=== PATIENT | female | born 1975 | race Two or more races ===

== ENCOUNTER → 2024-03-14 11:02 | Outpatient (BNVA) | payer SELFPAY | PROVIDERS: Visit Provider Physician Assistant Medical | DX: Z02.1 Encounter for pre-employment examination (principal) ==

== ENCOUNTER 2024-05-09 17:31 | Emergency (ER) | payer MEDICAID, SELFPAY ==
--- NOTE | ~2024-05-09 | CT_ITS ---
EXAMINATION: CT ABDOMEN AND PELVIS WITH CONTRAST CLINICAL INFORMATION: Bilateral lower quadrant pain COMPARISON: None available. TECHNIQUE: Multidetector volumetric images were obtained from the superior aspect of the liver through the pubic symphysis following administration 85 mL of Omnipaque 350 intravenous contrast. Sagittal and coronal reformatted images were obtained on the technologist's workstation. Oral contrast: Yes This CT examination was performed using dose optimization techniques as appropriate, variously including the following: *Automated exposure control *Adjustment of mA and/or kV according to patient size (this includes techniques or standardized protocols for targeted exams where dose is matched to indication/reason for exam; i.e. extremities or head) *Use of iterative reconstruction technique DLP: 658 mGy-cm FINDINGS: LUNG BASES: The visualized lung bases are clear. There are bilateral breast implants. LIVER, GALLBLADDER, AND BILIARY TREE: The liver is normal in size, shape, and attenuation. No focal hepatic lesion or biliary ductal dilatation is present. The gallbladder is been removed. PANCREAS: Unremarkable. SPLEEN: Unremarkable. ADRENAL GLANDS: Unremarkable. KIDNEYS AND URETERS: The kidneys are normal in size, shape, and attenuation. There is an oval shaped calcification in the peripheral upper pole of the right kidney measuring 7 x 13 mm. There is adjacent cortical thinning. It is uncertain whether this represents an old renal infarct that calcified, dystrophic calcification outside the kidney related to old trauma or infection, stone in a calyceal diverticulum, or calcified cyst. No hydronephrosis. The kidneys are otherwise unremarkable.. BLADDER: Unremarkable. GASTROINTESTINAL TRACT: Postsurgical change from gastric bypass. While diverticulosis. No evidence of diverticulitis. Small and large bowel otherwise unremarkable. Appendix not seen and may have been removed. ABDOMINAL WALL: Postsurgical changes to the anterior abdominal wall. No hernia. LYMPH NODES: Normal. VASCULAR: Unremarkable. PELVIC VISCERA: IUD in the uterus in satisfactory position. Prominent right pelvic vessels questionable for pelvic congestion. OSSEOUS STRUCTURES: Unremarkable. CT/CT abdomen pelvis w IV con IMPRESSION: No acute findings. Postoperative changes from gastric bypass. Mild diverticulosis. No evidence of diverticulitis. 7 x 11 mm benign-appearing calcification in the peripheral upper pole of the right kidney, uncertain etiology as described above. This is not a typical appearing renal stone. No hydronephrosis. IUD in the uterus in satisfactory position. Prominent right pelvic vessels questionable for pelvic congestion. Fleischner guidelines were followed.
--- NOTE | 2024-05-09 17:42 | ED_ITS ---
HPI - General Adult General Chief complaint: Abdominal Pain Stated complaint: vaginal pain, back pain, abd pain, chills, nausea Time Seen by Provider: 05/09/24 22:15 Source: patient Mode of arrival: ambulatory Limitations: no limitations History of Present Illness ED Provider: Dr. Vilma Calvin HPI narrative: Patient comes to the emergency room complaining of very painful vaginal lesions, heavy vaginal discharge, suprapubic pain, tenderness, back pain and dysuria. Patient denies fever chills. Patient states proximally 4 days ago, she had sexual intercourse with her boyfriend and had dyspareunia. Related Data Previous Rx's ?Medication ?Instructions ?Recorded cefuroxime axetil 500 mg tablet 500 mg PO BID #14 tabs 05/10/24 doxycycline hyclate 100 mg tablet 100 mg PO BID #14 tabs 05/10/24 fluconazole 150 mg tablet 150 mg PO ONCE #1 tab 05/10/24 metronidazole 500 mg tablet 500 mg PO BID #14 tabs 05/10/24 Allergies Allergy/AdvReac Type Severity Reaction Status Date / Time hydrocodone [From Vicodin] Allergy Anaphylaxis Verified 05/09/24 17:48 Penicillins Allergy Rash Verified 05/09/24 17:48 Review of Systems 2 Review of Systems: Constitutional : No Weight loss, No Fever, No Chills, No Night Sweats, No Fatigue, No Malaise ENT/Mouth : No Hearing loss, No Ear Pain, No Nasal Congestion, No Sinus Pain, No Hoarseness, No sore throat, No Rhinorrhea, No Swallowing Difficulty Eyes: No Eye Pain, No Swelling, No Redness, No Foreign Body, No Discharge, No Vision Changes Cardiovascular : No Chest Pain, No SOB, No Dyspnea on Exertion, No Orthopnea, No Edema, No Palpitations Respiratory : No Cough, No Sputum, No Wheezing, No Smoke Exposure, No Dyspnea Gastrointestinal : No Nausea, No Vomiting, No Diarrhea, No Constipation, No abdominal Pain, No Hematochezia, No Melena Genitourinary : Complaining of dysuria, painful vaginal lesions, heavy vaginal discharge Musculoskeletal : Complaining of bilateral back pain, No joint pain, No Myalgias, No Joint Swelling Skin : No Skin Lesions, No rash Neuro : No Weakness, No Numbness, No Paresthesias, No Loss of Consciousness, No Dizziness, No Headache Psych : No Anxiety/Panic, No Depression, No SI/HI/AH/VH, No Social Issues, Heme/Lymph: No Bruising, No Bleeding,No Lymphadenopathy Endocrine : No Polyuria, No Polydipsia, No Temperature Intolerance [facility] Social History Social History Advance Directives: No Advance Directives Information Provided: No Physical Exam ED Vital Signs: Vital Signs - 24 hr 05/09/24 17:43 05/09/24 20:28 05/09/24 22:35 Temperature 98.2 F 97.7 F 98.3 F Pulse Rate 75 75 70 Respiratory Rate 16 20 20 Blood Pressure 119/83 122/82 130/88 Pulse Oximetry 95 99 100 Oxygen Delivery Method Room Air Room Air Room Air BMI result Body Mass Index 29.1 Const Other: Appearance: Alert. Oriented X3. No acute distress. Eyes: Pupils equal, round and reactive to light. ENT: Pharynx normal. Neck: Normal inspection. Neck supple. No lymph nodes noted. No crepitus CVS: Normal heart rate and rhythm. Pulses normal. Normal S1 and S2 Respiratory: No respiratory distress. Breath sounds normal. No Wheezing. No rales Abdomen: Soft , tenderness to palpation in suprapubic area, mild left-sided flank pain : Patient has small clusters of ulcerated blisters in the vulva, labia minora and majora. On cervical exam, there is copious thick green vaginal discharge, IUD string present in the cervical os Skin: Skin warm and dry. Normal skin color. Normal skin turgor. Extremities: No lower extremity edema. No Lacerations. No Rash Neuro: Oriented X 3. No motor deficit. No sensory deficit. Moving all extremities. No slurred speech. CN 2 through 12 grossly intact Psych: calm, cooperative, normal affect Course Course Course Narrative: This is a Rapid Medical Examination (RME) performed by Irene Chahal PA-C in triage. Full HPI, ROS, assessment and treatment plan per primary provider in the Main ED. 49 yo female here with multiple concerns. reports shortness of breath x1 week. Sitting 8-9 hours for new job position. Reports nausea, decreased appetite, chills, low back pain, lower abdominal pain, dysuria, dark colored urine, increased urinary frequency, new vaginal lesions, and yellow vaginal discharge x6 days which worsened after unprotected intercourse with long time boyfriend. Reports vaginal discomfort is so severe that it's painful to sit down. no hx of genital herpes. sensitive exam not performed in triage. minimal abdominal tenderness with palpation of lower abdomen. no cvat. Plan: labs, UA, CT/NG ordered Medications Administered Discontinued Medications Generic Name Dose Route Start Last Admin Trade Name Tashi PRN Reason Stop Dose Admin Acetaminophen 975 mg 05/09/24 23:46 05/10/24 00:01 Acetaminophen 325 Mg Tablet PO 05/09/24 23:47 975 mg ONCE ONE Administration Acyclovir 400 mg 05/09/24 23:54 05/10/24 00:16 Acyclovir 200 Mg Capsule PO 05/09/24 23:55 400 mg ONCE ONE Administration Doxycycline Monohydrate 100 mg 05/09/24 23:49 05/10/24 00:01 Doxycycline Monohydrate 100 Mg Capsule PO 05/09/24 23:50 100 mg ONCE ONE Administration Levofloxacin 500 mg in 100 mls @ 100 mls/hr 05/09/24 22:26 05/09/24 23:24 Levaquin IV 05/09/24 23:25 100 mls/hr ONCE ONE Administration Ceftriaxone Sodium 1 gm/ 50 mls @ 100 mls/hr 05/09/24 23:49 05/10/24 00:01 Sodium Chloride IV 05/10/24 00:18 100 mls/hr ONCE ONE Administration Iohexol 85 ml 05/09/24 23:02 05/09/24 23:02 Iohexol 350 Mg/Ml 100 Ml Infus..Btl IV 05/09/24 23:03 85 ml ONCE ONE Administration Ketorolac Tromethamine 60 mg 05/09/24 22:24 05/09/24 22:29 Ketorolac Tromethamine 60 Mg/2 Ml Vial IM 05/09/24 22:25 60 mg ONCE ONE Administration Metronidazole 500 mg 05/09/24 23:49 05/10/24 00:01 Metronidazole 500 Mg Tablet PO 05/09/24 23:50 500 mg ONCE ONE Administration Ondansetron HCl 4 mg 05/09/24 23:46 05/10/24 00:01 Ondansetron Hcl 4 Mg/2 Ml Vial IVPUSH 05/09/24 23:47 4 mg ONCE ONE Administration Medical Decision Making Medical Decision Making MDM Narrative: -I discussed the physical exam with the patient, patient likely has genital herpes. Also, patient may likely have bacterial vaginosis, explained to the patient that bacterial vaginosis is not an STD, however genital herpes is. -my interpretation of labs: Normal hematology and chemistry, patient does have a mild UTI, back pain, therefore treated as pyelonephritis. -patient was treated for UTI/pyelonephritis (Levaquin), bacterial vaginosis, herpes. Patient was empirically treated for gonorrhea/chlamydia. -patient received ceftriaxone, doxycycline, metronidazole and acyclovir -given the patient's level of discomfort in the suprapubic and bilateral lower quadrant area on physical exam, a CT scan was ordered to rule out a tubal ovarian abscess. Patient was given IV Toradol for pain control and Zofran for nausea -my interpretation of CT scan of abdomen pelvis: IUD present in the uterus, there is approximately an 8 mm stone in the right upper kidney pole, no obvious tubo-ovarian abscess, radiology report pending Differential Diagnosis Differential Diagnoses: The differential diagnosis associated with the presentation includes (As above) Lab Data MDM Lab Attestation statement: I reviewed the patient's lab results. 05/09/24 18:03 05/09/24 18:03 Labs: Lab Results 05/09/24 05/09/24 Range/Units 18:03 18:09 WBC 5.1 (4.8-10.8) X10*3/uL RBC 4.37 (4.20-5.50) X10*6/uL Hgb 14.1 (12.0-16.0) g/dl Hct 40.8 (37.0-47.0) % MCV 93.4 (80.0-98.0) fL MCH 32.3 (27.0-33.0) pg MCHC 34.6 (31.0-35.0) g/dl RDW 12.6 (11.0-16.0) % Plt Count 187 (160-400) X10*3/uL MPV 11.0 (9.4-12.3) fL Immature Gran % (Auto) 0.2 (0.0-0.4) % Neut % (Auto) 62.0 (45-73) % Lymph % (Auto) 23.7 (20-40) % [place] % (Auto) 12.5 H (2-11) % Eos % (Auto) 1.4 (0-4) % Baso % (Auto) 0.2 (0-2) % Lymph # (Auto) 1.2 (1.2-4.9) X10*3/uL [place] # (Auto) 0.6 (0.1-1.2) X10*3/uL Eos # (Auto) 0.1 (0.0-0.4) X10*3/uL Baso # (Auto) 0.0 (0.0-0.2) X10*3/uL Abs Immat Gran (auto) 0.01 (0.00-0.03) X10*3/uL Absolute Neuts (auto) 3.2 (2.0-8.3) x10*3/uL Absolute Nucleated RBC 0.000 (0.0-0.012) X10*3/uL Nucleated RBC % (auto) 0.0 (0.0-0.2) /100WBC Sodium 138 (135-145) mmol/L Potassium 3.9 (3.3-5.1) mmol/L Chloride 105 (96-108) mmol/L Carbon Dioxide 23 (22-29) mmol/L Anion Gap 14 (12-20) BUN 13 (9-16) mg/dL Creatinine 0.71 (0.5-1.4) mg/dL Estim Creat Clear Calc 87.1 Estimated GFR > 60 Random Glucose 74 (60-115) mg/dL Calcium 9.3 (8.4-10.2) mg/dL Magnesium 2.1 (1.6-2.6) mg/dL Total Bilirubin 0.3 (0.0-1.0) mg/dL AST 32 H (5-31) U/L ALT 21 (0-31) U/L Alkaline Phosphatase 84 (39-117) U/L Total Protein 7.6 (6.5-8.0) g/dL Albumin 4.3 (3.5-5.0) g/dL Lipase 27 (8-78) U/L Urine Color Dark Yellow Urine Appearance Clear Urine pH 6.0 (5.0-9.0) Ur Specific [place] 1.020 (1.005-1.025) Urine Protein Negative (Neg-Trace) mg/dL Urine Glucose (UA) Negative (Negative) mg/dL Urine Ketones Trace (Negative) mg/dL Urine Blood Negative (Negative) Urine Nitrite Negative (Negative) Ur Leukocyte Esterase Small (1+) H (Negative) Urine RBC 0-2 (0-2) /HPF Urine WBC 6-10 H (0-5) /HPF Ur Squamous Epith Cells 0-2 (0-2) /HPF Urine Bacteria None Seen (None Seen) Hyaline Casts 0-2 (0-2) /LPF Chlam trachomat DNA PCR Cancelled Influenza Type A (PCR) NEGATIVE (Negative) Influenza Type B (PCR) NEGATIVE (Negative) N.gonorrhoeae DNA (PCR) Cancelled RSV RNA Qual (PCR) NEGATIVE (Negative) SARS-CoV-2 RNA (RT-PCR) NEGATIVE (Negative) Independent Interpretation I performed an independent interpretation of an: CT Scan Radiology Impression Discussion of test interpretation with radiology: I have reviewed the radiologist's reading. Radiologist Impression: FINDINGS: LUNG BASES: The visualized lung bases are clear. There are bilateral breast implants. LIVER, GALLBLADDER, AND BILIARY TREE: The liver is normal in size, shape, and attenuation. No focal hepatic lesion or biliary ductal dilatation is present. The gallbladder is been removed. PANCREAS: Unremarkable. SPLEEN: Unremarkable. ADRENAL GLANDS: Unremarkable. KIDNEYS AND URETERS: The kidneys are normal in size, shape, and attenuation. There is an oval shaped calcification in the peripheral upper pole of the right kidney measuring 7 x 13 mm. There is adjacent cortical thinning. It is uncertain whether this represents an old renal infarct that calcified, dystrophic calcification outside the kidney related to old trauma or infection, stone in a calyceal diverticulum, or calcified cyst. No hydronephrosis. The kidneys are otherwise unremarkable.. BLADDER: Unremarkable. GASTROINTESTINAL TRACT: Postsurgical change from gastric bypass. While diverticulosis. No evidence of diverticulitis. Small and large bowel otherwise unremarkable. Appendix not seen and may have been removed. ABDOMINAL WALL: Postsurgical changes to the anterior abdominal wall. No hernia. LYMPH NODES: Normal. VASCULAR: Unremarkable. PELVIC VISCERA: IUD in the uterus in satisfactory position. Prominent right pelvic vessels questionable for pelvic congestion. OSSEOUS STRUCTURES: Unremarkable. CT/CT abdomen pelvis w IV con IMPRESSION: No acute findings. Postoperative changes from gastric bypass. Mild diverticulosis. No evidence of diverticulitis. 7 x 11 mm benign-appearing calcification in the peripheral upper pole of the right kidney, uncertain etiology as described above. This is not a typical appearing renal stone. No hydronephrosis. IUD in the uterus in satisfactory position. Prominent right pelvic vessels questionable for pelvic congestion. Fleischner guidelines were followed. Critical Care Time Critical Care Time Critical Care Time: Yes Total Critical Care Time: 60 Attestation: I have personally provided critical care time. Time includes review of lab data, radiology results, discussion with consultants, and monitoring for potential decompensation. Intervention performed as documented. Discharge Plan Discharge Clinical Impression: Herpes, Bacterial vaginosis Patient Disposition: Home, Self-Care Instructions: Bacterial Vaginosis (ED), Genital Herpes Simplex (ED) Additional Instructions: Please follow-up with your primary care physician tomorrow. If you have any worsening or new symptoms, please return to the emergency room or call 911 Prescriptions: New metronidazole 500 mg tablet 500 mg PO BID Qty: 14 0RF cefuroxime axetil 500 mg tablet 500 mg PO BID Qty: 14 0RF doxycycline hyclate 100 mg tablet 100 mg PO BID Qty: 14 0RF fluconazole 150 mg tablet 150 mg PO ONCE Qty: 1 0RF Print Language: Thai
[2024-05-09 17:43] VITALS: BP 119/83; PULSE 75; RESP 16; TEMP 36.8; O2SAT 95; BMI 29.1
[2024-05-09 18:08] LABS: MANUAL DIFF FLAG NO
[2024-05-09 18:24] LABS: Alanine Aminotransferase 21 U/L (0-31); Albumin Level 4.3 g/dL (3.5-5.0); Alkaline Phosphatase 84 U/L (39-117); Anion Gap 14 (12-20); Aspartate Amino Transferase 32 U/L (5-31); Bilirubin Total 0.3 mg/dL (0.0-1.0); Blood Urea Nitrogen 13 mg/dL (9-16); Calcium 9.3 mg/dL (8.4-10.2); Carbon Dioxide 23 mmol/L (22-29); Chloride 105 mmol/L (96-108); Creatinine Clr Calc Pharmacy 87.1; Estimated Glomerular Filt Rate > 60; Glucose Random 74 mg/dL (60-115); Lipase 27 U/L (8-78); Magnesium 2.1 mg/dL (1.6-2.6); Potassium 3.9 mmol/L (3.3-5.1); Sodium 138 mmol/L (135-145); Total Protein 7.6 g/dL (6.5-8.0)
[2024-05-09 18:36] LABS: Basophils Percent Auto 0.2 % (0-2); Eosinophils Absolute Auto 0.1 X10*3/uL (0.0-0.4); Eosinophils Percent Auto 1.4 % (0-4); Hematocrit 40.8 % (37.0-47.0); Hemoglobin 14.1 g/dl (12.0-16.0); Imm Gran Abs Auto 0.01 X10*3/uL (0.00-0.03); Imm Gran Pct Auto 0.2 % (0.0-0.4); Lymphocytes Absolute Auto 1.2 X10*3/uL (1.2-4.9); Lymphocytes Percent Auto 23.7 % (20-40); Mean Corpuscular HGB Conc 34.6 g/dl (31.0-35.0); Mean Corpuscular Hemoglobin 32.3 pg (27.0-33.0); Mean Corpuscular Volume 93.4 fL (80.0-98.0); Monocytes Absolute Auto 0.6 X10*3/uL (0.1-1.2); Monocytes Percent Auto 12.5 % (2-11); Neutrophils Absolute Auto 3.2 x10*3/uL (2.0-8.3); Platelet Count 187 X10*3/uL (160-400); Red Blood Count 4.37 X10*6/uL (4.20-5.50); Red Cell Distribution Width 12.6 % (11.0-16.0); White Blood Count 5.1 X10*3/uL (4.8-10.8)
[2024-05-09 18:39] LABS: Appearance Urine Clear; Color Urine Dark Yellow; Glucose Urine UA Negative (Negative); Leukocyte Esterase Urine Small (1+) (Negative); Nitrite Urine Negative (Negative); UMIC TRIGGER UACC YES; Urine Blood Negative (Negative); Urine Ketones Trace mg/dL (Negative); Urine Protein Negative (Neg-Trace)
[2024-05-09 18:51] LABS: Influenza A PCR NEGATIVE (Negative); Influenza B PCR NEGATIVE (Negative); Resp Syncy Virus RNA Qual PCR NEGATIVE (Negative); SARS COV2 PCR INHOUSE NEGATIVE (Negative)
[2024-05-09 18:53] LABS: Bacteria Urine None Seen (None Seen); Hyaline Casts Urine 0-2 /LPF (0-2); RBC Urine 0-2 /HPF (0-2); Squamous Epithelial Cell Urine 0-2 /HPF (0-2); UACC Culture Trigger YES
[2024-05-09 20:28] VITALS: BP 122/82; PULSE 75; RESP 20; TEMP 36.5; O2SAT 99
[2024-05-09] MEDS: Ketorolac Tromethamine 60 MG/2 ML VIAL IM (22:29)
[2024-05-09 22:35] VITALS: BP 130/88; PULSE 70; RESP 20; TEMP 36.8; O2SAT 100
[2024-05-09] MEDS: iohexoL 350 MG/ML 100 ML INFUS..BTL 85 ML IV (23:02)
[2024-05-09] MEDS: levoFLOXacin/D5W 500 MG/100 ML PIGGYBACK 100 MG IV (23:24)
[2024-05-10] MEDS: Doxycycline Monohydrate 100 MG CAPSULE PO (00:01)
[2024-05-10] MEDS: ondansetron HCL 4 MG/2 ML VIAL IVPUSH (00:01)
[2024-05-10] MEDS: Acetaminophen 325 MG TABLET 975 MG PO (00:01)
[2024-05-10] MEDS: cefTRIAXone sodium 1 GM in 0.9 % Sodium Chloride 50 ML IV (00:01)
[2024-05-10] MEDS: metroNIDAZOLE 500 MG TABLET PO (00:01)
[2024-05-10] MEDS: Acyclovir 200 MG CAPSULE 400 MG PO (00:16)
[2024-05-10 06:07] LABS: CT PCR NOT DETECTED (Not Detect.); NG PCR NOT DETECTED (Not Detect.)
[2024-05-10 10:48] LABS: Bacterial Vaginosis PCR NEGATIVE (Negative); Candida Group PCR NOT DETECTED (Not Detect); Candida glab krusei PCR NOT DETECTED (Not Detect); Trichomonas vaginalis PCR NOT DETECTED (Not Detect)
== END 2024-05-10 02:27 | disposition home or self-care (01) ==
PROVIDERS: Physician Assistant Medical; Emergency Provider Emergency Medicine
DX: B00.9 Herpesviral infection, unspecified (principal); N76.0 Acute vaginitis; R30.0 Dysuria; N94.89 Other specified conditions associated with female genital organs and menstrual cycle; N94.10 Unspecified dyspareunia; M54.50 Low back pain, unspecified; Z03.818 Encounter for observation for suspected exposure to other biological agents ruled out
CPT/HCPCS: 0241U; 0352U; 74177; 80053; 81001; 83690; 83735; 85025; 87086; 87491; 87591; 96372; 96374; 96375; 99284; J0696; J1885; J1956; J2405; Q9967

== ENCOUNTER 2024-08-02 16:11 | Outpatient (AMB) | payer OTHER, SELFPAY ==
[2024-08-02 16:12] VITALS: BP 110/80; PULSE 88; O2SAT 94; BMI 27.8
--- NOTE | 2024-08-02 16:12 | MHC.OFFWIV ---
Intake Vital Signs 08/02/24 16:12 Height 5 ft 2 in Weight 152 lb BMI 27.8 BP 110/80 Blood Pressure Location Rt brachial Position Sitting Pulse 88 Pulse Source Pulse Oximeter Pulse Oximetry (%) 94 Oxygen Delivery Method Room Air Intake Visit Reasons: EP-abd pain, b/l legs crams, sob, insomnia Allergies hydrocodone [From Vicodin] Allergy (Verified 08/02/24 16:14) Anaphylaxis Penicillins Allergy (Verified 08/02/24 16:14) Rash Do you need a note to return to daycare/school/sports/work: No HPI HPI Comments History of Present Illness Details Patient is a 49-year-old female complaining not sleeping, anxiety, waking up and having a panic attack, feeling short of breath and or palpitations. She explained she just had a family member who was murdered on July 10 and when she was found out she passed out and was taken to [facility] in [place]. After a evaluation, they recommended she follow up with behavioral health however her insurance did not cover the place in [place] and she has been working with her primary car doctor at [facility] to try to secure a therapist or somebody and behavior Health to evaluate her for therapy or medication or both. She states that she has not have any plans to hurt herself or anyone else. She has been given lorazepam 0.5 mg to use for anxiety which she has been using she has the prescription here with her today and has a few pills left from July 10 when she was prescribed 12 of them. She has also been taking 50 mg of trazodone before bed to try to sleep but it has not been working, she does have plenty of them left in the bottle. She was also given melatonin which she has been using but is almost out. She states she is not eating she is not sleeping she has lost 10 lb in the past 3 weeks. Review of Systems Const All systems reviewed & are unremarkable except as noted in HPI and below Physical Exam Vital Signs: Last Vital Signs Pulse 88 08/02/24 16:12 BP 110/80 08/02/24 16:12 Pulse Ox 94 08/02/24 16:12 Oxygen Delivery Method Room Air 08/02/24 16:12 BMI result Body Mass Index 27.8 Const General: cooperative, comfortable, well developed, anxious and tired appearing Orientation/consciousness: patient oriented x3 Limitations: no limitations HEENT Head: Yes normal to inspection Ears: hearing grossly normal bilaterally General nose exam: Normal external nose present Face and sinus: Yes normal facial exam Eyes General: appearance normal, both eyes and all related structures Neck Neck: Yes normal visual inspection and Yes full ROM Resp Effort & Inspection: normal respiratory effort and able to speak in complete sentences Skin General skin exam: no rashes or lesions noted Neuro General: patient oriented x3 Extrem General: Yes normal to inspection Assessment & Plan Assessment & Plan (1) Situational anxiety: Code(s): 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 I did refill some of the medications and added hydroxyzine to be used as needed for anxiety. (2) Panic attacks: Code(s): F41.0 - Panic disorder [episodic paroxysmal anxiety] Plan: See above Plan See above Medications: New melatonin 5 mg PO .QHS 30 caps 0RF 30 days hydroxyzine HCl 25 mg PO TID PRN 20 tabs 0RF anxiety lorazepam 0.5 mg PO BID PRN 14 tabs 0RF anxiety Discontinued doxycycline hyclate Discontinued Reason: Patient Completed Course 100 mg PO BID 14 tabs 0RF acyclovir space evenly during waking hours Discontinued Reason: Stopped on Transfer 800 mg PO 5XD 7 days 35 tabs 0RF cefuroxime axetil Discontinued Reason: Patient no longer taking 500 mg PO BID 14 tabs 0RF fluconazole Discontinued Reason: Patient Completed Course 150 mg PO ONCE 1 tab 0RF metronidazole Discontinued Reason: Patient Completed Course 500 mg PO BID 14 tabs 0RF Coding Level of Care Code New Pt Level 4 (35928) Diagnoses Situational anxiety F41.8 Panic attacks F41.0
== END 2024-08-02 16:53 | disposition home or self-care (01) ==
LOC: HO.HMCWIC 16:11
DX: F41.8 Other specified anxiety disorders (principal); F41.0 Panic disorder [episodic paroxysmal anxiety]

== ENCOUNTER → 2024-08-02 16:11 | Outpatient (BNVA) | payer OTHER, SELFPAY | DX: F41.8 Other specified anxiety disorders (principal); F41.0 Panic disorder [episodic paroxysmal anxiety] | CPT/HCPCS: 99202 ==

== ENCOUNTER 2024-12-18 13:49 | Outpatient (AMB) | payer OTHER, SELFPAY ==
--- OUTSIDE RECORDS SUMMARY | 2024-12-18 13:57 | XMS_ITS | Clinical Summary ---
Author Organization [facility] [place] [address] Care Team Providers Care Kennel Assistant Name Role Phone Unavailable Primary Care Provider Unavailabl e Social History Tobacco Use Types Packs/Day Years Used Date Smoking Tobacco: Never Assessed Sex and Gender Information Value Date Recorded Sex Assigned at Not on file Gender Identity Not on file Sexual Orientation Not on file Obstetrics History Plan of Treatment Health Maintenance Due Date Last Done Comments Breast Cancer Screening 1973 DTaP,Tdap,and Td Vaccines (1 - Tdap) 1992 Hepatitis B Vaccines (1 of 3 - 19+ 3-dose series) 1992 Cervical Cancer Screening: P ap Smear 1994 Zoster Vaccines (1 of 2) 2023 COVID-19 Vaccine (2023-2 5 season) 2024 Influenza Vaccine (#1) 2024 Colorectal Cancer Screening: Colonoscopy 09/09/2024 Depression Screening 09/09/2024 HIV Screening 09/09/2024 Hepatitis C Screening 09/09/2024 Social Influencers of Health Screening 09/09/2024 HIB Vaccines Aged Out No longer eligi ble based on patient's age to complete this topic HPV Vaccines Aged Out No longer eligi ble based on patient's age to complete this topic Hepatitis A Vaccines Aged Out No long er eligible based on patient's age to complete this topic IPV Vaccines Aged Out No longer eligi ble based on patient's age to complete this topic MMR Vaccines Aged Out No longer eligi ble based on patient's age to complete this topic Meningococcal ACWY Vaccine Aged Out N o longer eligible based on patient's age to complete this topic Pneumococcal Vaccine: Pediat rics (0 to 5 Years) and At-Risk Patients (6 to 64 Years) Aged Out No longer eligible b ased on patient's age to complete this topic RSV Immunization Patients Un siva 20 months Aged Out No longer eligible b ased on patient's age to complete this topic Varicella Vaccines Aged Out No longer eligible based on patient's age to complete this topic
--- OUTSIDE RECORDS SUMMARY | 2024-12-18 13:57 | XMS_ITS | Clinical Summary ---
Author Organization [facility] Address [address] [place] [address] Care Team Providers Care Corrections Unit Supervisor Name Role Phone Unavailable Primary Care Provider Unavailabl e Allergies Active Allergy Reactions Criticality Noted Date Comments Hydrocodone-Acetaminophen Swelling,Rash Low 024 Penicillins Rash Low 07/09/2024 Per states she gets rash from Medication Medications Medication Sig Dispensed Refills Start Date End Date Status ondansetron (ZOFRAN) 8 MG tablet Take 0.5 tablets (4 mg total) by mouth every 8 (eight) hours as needed for nausea. 20 tablet 0 07/10/2024 Active LORazepam (ATIVAN) 0.5 MG tablet Take 1 tablet (0.5 mg total) by mouth every 6 (six) hours as needed. 12 tablet 0 07/10/2024 Active melatonin 3 MG TABS tablet Take 1 tablet (3 mg total) by mouth every night at bedtime. 30 tablet 0 07/10/2024 Active mirtazapine (Remeron) 15 MG tablet Take 0.5 tablets (7.5 mg total) by mouth every night at bedtime. 30 tablet 0 07/10/2024 Active famotidine (PEPCID) 20 MG tablet Take 1 tablet (20 mg total) by mouth 2 (two) times a day. 30 tablet 0 07/10/2024 Active Social History Tobacco Use Types Packs/Day Years Used Date Smoking Tobacco: Never Assessed Sex and Gender Information Value Date Recorded Sex Assigned at Female 07/09/2024 4:44 PM EDT Gender Identity Not on file Sexual Orientation Not on file Job Start Date Occupation Industry Not on file Not on file Not on file Last Filed Vital Signs Vital Sign Reading Time Taken Comments Blood Pressure 124/86 07/09/2024 6:33 PM EDT Pulse 84 07/09/2024 6:33 PM EDT Temperature 36.9 ??C (98.4 ??F) 07/09/2024 6:33 PM ED T Respiratory Rate 18 07/09/2024 6:33 PM EDT Oxygen Saturation 100% 07/09/2024 6:33 PM EDT Inhaled Oxygen Concentration - - Weight - - Height - - Body Mass Index - - Plan of Treatment Health Maintenance Due Date Last Done Comments Hepatitis B Vaccines (1 of 3 - 3-dose series) 1973 Hepatitis C Screening 1973 COVID-19 Vaccine (#1) 1973 Depression Screening 1985 Preventative Health Evaluation 1991 DTap / Tdap / Td (1 - Tdap) 1992 Cervical Cancer Screening (P ap Smear) 1994 Colon Cancer Screening (Colonoscopy) 2018 Breast Cancer Screening (Mammogram) 2023 Shingrix-Zoster Vaccine (1 of 2) 2023 Influenza Vaccine (#1) 2024 Pneumococcal Vaccine Aged Out No long er eligible based on patient's age to complete this topic RSV Ped < 20 months Aged Out No longe r eligible based on patient's age to complete this topic
[2024-12-18 14:51] VITALS: BP 128/82; PULSE 97; RESP 20; TEMP 36.7; O2SAT 97; BMI 27.8
--- NOTE | 2024-12-18 14:51 | AM.OFFWIN_ITS ---
Intake Vital Signs 12/18/24 14:51 Height 5 ft 2 in Weight 152 lb BMI 27.8 BP 128/82 Blood Pressure Location Lt brachial Position Sitting Respiration 20 Pulse 97 Pulse Source Pulse Oximeter Temp 98.0 F Temp Source Oral Pulse Oximetry (%) 97 Oxygen Delivery Method Room Air Intake Visit Reasons: EP severe back, joint pain, migraines Intake Note: Pt is here today for a walk in visit. Pt c/o lower back pain and abdominal pain cough and wheezing, cant eat. Pt states that she gets sharp pain near her R side ribcage Allergies hydrocodone [From Vicodin] Allergy (Verified 12/18/24 14:55) Anaphylaxis Penicillins Allergy (Verified 12/18/24 14:55) Rash Do you need a note to return to daycare/school/sports/work: Yes HPI HPI Comments History of Present Illness Details This is a 49-year-old female with a past medical history of cholecystectomy, appendectomy, asthma and gastric bypass surgery presenting for evaluation of low back pain and right-sided abdominal pain. 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 Patient denies any overt injury or trauma preceding the onset of her symptoms. Patient states that she pushes heavy stretchers and has to handle overweight patients. On Tuesday the patient noted pain in her low back after work. Patient has been taking Tylenol [id number] without relief of her discomfort. Patient states the pain does not radiate. This morning the patient developed pain on the right side of her abdomen under the right anterior ribs. Again, patient denies any injury or trauma contributing to this discomfort. She has not taken any additional medicine for treatment of her pain however does feel nauseous. She denies any fevers, chills, vomiting or dysuria. Review of Systems Const All systems reviewed & are unremarkable except as noted in HPI and below Denies chills, Denies fever(s) and Denies headache(s) Eyes Reports no additional complaints ENT Reports no additional complaints and Denies headache(s) Card Reports no additional complaints Resp Reports no additional complaints GI Details: RUQ pain Reports no additional complaints Reports no additional complaints Musc Reports back pain, Denies joint swelling, Denies numbness and Denies tingling Skin/Breast Reports system reviewed and no additional complaints, except as documented Neuro Reports no additional complaints, Denies headache(s), Denies numbness and Denies tingling Psych Reports no additional complaints Endo Reports no additional complaints Skip/Lymph Reports no additional complaints Aller/Immun Reports no additional complaints Physical Exam Vital Signs: Last Vital Signs Temp 98.0 F 12/18/24 14:51 Pulse 97 12/18/24 14:51 Resp 20 12/18/24 14:51 BP 128/82 12/18/24 14:51 Pulse Ox 97 12/18/24 14:51 Oxygen Delivery Method Room Air 12/18/24 14:51 BMI result Body Mass Index 27.8 Const General: cooperative, healthy appearing, well developed, alert, awake and Physically active; No comfortable Nutritional Appearance: average body habitus Orientation/consciousness: patient oriented x3 Limitations: no limitations Resp Effort & Inspection: normal respiratory effort and able to speak in complete sentences Auscultation: wheezes lower bilaterally Cardio Rate: regular rate Rhythm: regular rhythm GI Inspection: Yes normal to inspection and No abdominal wall ecchymosis Palpation (GI): Soft to palpation and Tenderness to palpation present (GI) in the epigastrum and in the RUQ Auscultation: normal bowel sounds General: Yes bladder normal to palpation and Yes no CVA tenderness Bimanual exam- vagina & uterus: bladder normal to palpation Back/Spine/Pelvis Back: no CVA tenderness Thoracic/Lumbar Spine: paraspinal muscle tenderness on the left in the mid lumbar and on the right in the lower lumbar, No thoracic spinal tenderness, No lumbar spinal tenderness and No straight leg raise positive Sacroiliac joints: bilaterally nontender Skin General skin exam: no rashes or lesions noted Neuro General: patient oriented x3 Psych Appearance: grossly normal Mental Status: mental status grossly normal Insight: Good insight present (Psych) Judgement: Good judgement present (Psych) Assessment & Plan Assessment & Plan (1) Lumbar pain: Comment: No red flag symptoms identified with lumbar pain. Patient will be discharged home with anti-inflammatory and muscle relaxant. Code(s): M54.50 - Low back pain, unspecified Plan: Prednisone 40 mg x 5 days and methocarbamol q.i.d. x5 days. (2) RUQ pain: Comment: Patient's past medical history includes cholecystectomy and appendectomy and patient presents with a nonsurgical abdomen. Patient will be discharged with Zofran for her nausea. Code(s): R10.11 - Right upper quadrant pain Plan: Zofran q.8 hours p.r.n. nausea, increase clear fluids daily. Patient will present to the emergency department for any worsening abdominal pain. Medications: New prednisone 40 mg (2 x 20 mg) PO DAILY 10 tabs 0RF ondansetron 4 mg PO Q8H 10 tabs 0RF albuterol sulfate 90 mcg/actuation 2 puffs inhalation Q6H PRN 8.5 grams 0RF shortness of breath or wheezing methocarbamol 750 mg PO Q8H 20 tabs 0RF Coding Level of Care Code New Pt Level 4 (32699) Diagnoses Lumbar pain M54.50 RUQ pain R10.11 Time Spent (min) 30
== END 2024-12-18 15:24 | disposition home or self-care (01) ==
PROVIDERS: Visit Provider Physician Assistant
DX: M54.50 Low back pain, unspecified (principal); R10.11 Right upper quadrant pain

== ENCOUNTER → 2024-12-21 14:04 | Outpatient (BNVA) | payer OTHER, SELFPAY | PROVIDERS: Visit Provider Physician Assistant Medical | DX: Z13.89 Encounter for screening for other disorder (principal) | CPT/HCPCS: 99203 ==

== ENCOUNTER 2024-12-31 14:40 | Inpatient (IN) | payer OTHER, SELFPAY ==
--- NOTE | ~2024-12-31 | XR_ITS ---
EXAMINATION: XR CHEST CLINICAL INFORMATION: Sob/cough COMPARISON: 12/31/2024. TECHNIQUE: Frontal view of the chest was obtained. FINDINGS: The cardiac, hilar, and mediastinal contours are normal. There is a patchy left basilar opacity extending into the retrocardiac region. Lungs otherwise clear. No pneumothorax or effusion. No focal osseous or soft tissue abnormality. XR/XR chest 1V IMPRESSION: Patchy increased opacity left base suggestive of subtle left base pneumonia. Electronically signed by: Griffin Leahy MD 01/03/2025 09:42 AM EST
--- NOTE | ~2024-12-31 | XR_ITS ---
CLINICAL HISTORY: CP 2 view chest x-ray Comparison: None Findings: The lungs are clear. Normal size heart. No acute fracture. IMPRESSION: 1. No acute findings. This document has been electronically signed by: Carleen Alvarado MD on 12/31/2024 15:14:10
--- NOTE | ~2024-12-31 | CT_ITS ---
CLINICAL HISTORY: Pain, rule out obstruction CT abdomen and pelvis with contrast Comparison: CT/DE - CT ABDOMEN PELVIS W IV CON - 05/09/24 22:51 EDT Findings: There are bilateral breast implants. There is a bandlike focus of atelectasis within the left lower lobe. Mild ground-glass opacities within the right lower lobe also most likely secondary to atelectasis. Large parenchymal calcification within the right kidney without change. Remaining abdominal organs unremarkable. Prior cholecystectomy. Prior gastric bypass with an unremarkable postoperative appearance. Colonic diverticulosis without diverticulitis. No bowel edema or obstruction. Intrauterine device within the endometrial canal. Pelvic contents otherwise unremarkable. Prior appendectomy. The bones are intact. IMPRESSION: 1. There may be a mild degree of ileus. There is no current evidence of small-bowel obstruction. 2. Colonic diverticulosis without diverticulitis. This document has been electronically signed by: Carleen Alvarado MD on 12/31/2024 18:16:06
--- NOTE | ~2024-12-31 | FL_ITS ---
EXAMINATION: FL SMALL BOWEL FOLLOW THROUGH CLINICAL INFORMATION: Abdominal pain COMPARISON: CT Abdomen/Pelvis 12/31/24, KUB 01/01/25 TECHNIQUE: Small bowel series performed using standard overhead radiographic techniques at specified intervals after ingestion of contrast, until contrast was seen in the right colon. Fluoroscopic spot radiographs were then obtained of the terminal ileum and any abnormal findings in the small bowel. FINDINGS: Bulb Planter image of the abdomen demonstrates a normal/nonspecific bowel gas pattern. Surgical clips are present in the right upper quadrant. Surgical anastomotic sutures are present in the left upper quadrant . An intrauterine device is present. Sequential imaging of the jejunum and ileum have a normal fold pattern. The left sided jejunal loops are minimally dilated, however, no strictures or masses are present. Spot imaging of the terminal ileum demonstrates no abnormality. Significant dilution of contrast was noted through progression. Contrast was seen in the right colon after 30 minutes. FLUOROSCOPY TIME: 0.5 min DOSE AREA PRODUCT: 683 uGy-m2 (microgray-meter squared) FL/FL small bowel follow through IMPRESSION: 1. Minimally dilated left sided small bowel loops, however, no strictures or masses are present. 2. Contrast is seen in colon after 30 minutes. There was significant dilution of contrast, nonspecific. No small bowel obstruction is present. 3. Status post cholecystectomy and gastric bypass. This procedure was performed by Navarro Martin PA-C, and supervised by Dr. Leahy Electronically signed by: Griffin Leahy MD 01/02/2025 03:24 PM [facility]
--- NOTE | ~2024-12-31 | XR_ITS ---
EXAMINATION: XR ABDOMEN KUB CLINICAL INDICATION: abd pain COMPARISON: KUB and CT abdomen and pelvis 12/31/2024. TECHNIQUE: AP view of the abdomen. FINDINGS: Bowel gas pattern is normal/nonspecific. There is no focally dilated loop identified. No organomegaly or abnormal soft tissue calcifications. Surgical clips and anastomotic sutures in the left upper quadrant. Cholecystectomy clips present. Surgical clips right lateral to the right iliac crest. IUD in the central pelvis. No acute bony abnormality. Lung bases appear clear. XR/XR KUB IMPRESSION: 1. No acute findings or evidence of bowel obstruction. 2. Stable postoperative changes. Electronically signed by: Griffin Leahy MD 01/01/2025 08:49 AM EST
--- NOTE | ~2024-12-31 | XR_ITS ---
CLINICAL HISTORY: constipation h o ZAFAR 1 view abdomen Comparison: CT/KS - CT ABDOMEN PELVIS W IV CON - 05/09/24 22:51 EDT Findings: No pneumoperitoneum or pneumatosis. No abnormal calcifications. No acute fractures. There are surgical clips within the bilateral upper quadrants. There is an intrauterine device within the pelvis. IMPRESSION: [id number] fecal retention within the colon. This document has been electronically signed by: Carleen Alvarado MD on 12/31/2024 15:15:49
--- NOTE | 2024-12-31 14:43 | ED_ITS ---
HPI - URI/Sore Throat General Chief Complaint: General Medical Stated Complaint: Cough Diff Breathing Time Seen by Provider: 12/31/24 15:28 History of Present Illness HPI Narrative: Patient with several complaints, chief complaint is abdominal pain nausea and vomiting associated with constipation, not passing gas for the past 3 days, pain is getting worse Patient has a history of gastric bypass, multiple small-bowel obstructions, appendicitis and cholecystectomy Second complaint is she has had a bad cough and chest pain with the cough, feels heart racing, and wheezing similar to prior asthma attacks Abdominal pain is the main complaint in his to scribed as 06/23, it is mostly upper abdomen both sides, last bowel movement was 3 days ago The coughing started 2 days ago it started a day after the abdominal pain started Related Data Home Medications ?Medication ?Instructions ?Recorded ?Confirmed lorazepam 0.5 mg tablet 0.5 mg PO QID PRN 08/02/24 melatonin 3 mg tablet 3 mg PO BEDTIME 08/02/24 mirtazapine 15 mg tablet 15 mg PO BEDTIME 08/02/24 ondansetron HCl 8 mg tablet mg PO 08/02/24 trazodone 50 mg tablet 50 mg PO BEDTIME 08/02/24 Previous Rx's ?Medication ?Instructions ?Recorded hydroxyzine HCl 25 mg tablet 25 mg PO TID PRN anxiety #20 tabs 08/02/24 lorazepam 0.5 mg tablet 0.5 mg PO BID PRN anxiety #14 tabs 08/02/24 melatonin 5 mg capsule 5 mg PO .QHS 30 days #30 caps 08/02/24 albuterol sulfate 90 mcg/actuation 2 puff inhalation Q6H PRN 12/18/24 aerosol inhaler shortness of breath or wheezing #8.5 grams methocarbamol 750 mg tablet 750 mg PO Q8H #20 tabs 12/18/24 ondansetron 4 mg disintegrating 4 mg PO Q8H #10 tabs 12/18/24 tablet prednisone 20 mg tablet 40 mg (2 x 20 mg) PO DAILY #10 tabs 12/18/24 Allergies Allergy/AdvReac Type Severity Reaction Status Date / Time hydrocodone [From Vicodin] Allergy Anaphylaxis Verified 12/31/24 14:48 Penicillins Allergy Rash Verified 12/31/24 14:48 [facility] Past Medical History Source: nursing notes reviewed Social History Social History Smoked in Last 30 Days: No Use of substances other than those prescribed or required for medical reasons: No Advance Directives: No Advance Directives Information Provided: Yes Physical Exam 2 Vital Signs: Vital Signs: Last Vital Signs Temp 99.7 F 12/31/24 14:46 Pulse 110 H 12/31/24 14:46 Resp 18 12/31/24 14:46 BP 149/92 H 12/31/24 14:46 Pulse Ox 99 12/31/24 14:46 O2 Del Method Room Air 12/31/24 14:46 BMI result Body Mass Index 26.2 General appearance is very uncomfortable coughing frequently The eyes anicteric no pallor Pharynx is clear with no redness swelling or exudate, voice is normal, membranes are moist Neck is supple The chest had bilateral wheezing with good air entry Heart no murmur auscultated The abdomen had diffuse upper abdominal tenderness without rebound or guarding Extremities full range motion x4 Skin no rash seen Course Course Course Narrative: This is an RME: Additional HPI, ROS, PE not included below will be deferred to primary provider. RME assessment and note performed by: Tawnya Azul PA-C This is a [id number]-female, with a hx of 4 bowel obstructions, cholescystectomy, appendectomy, and pancreatitis, who presents to the ER with a complaint of cough, congestion, abdominal pain, chest pain, SOB x 2 days. 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 She reports her last bowel movement was 2 days ago. Plan: Viral swabs, EKG, CXR, labs, KUB, further ER eval needed Patient had multiple doses of morphine and 2 doses of Zofran with no improvement and is not tolerating p.o. and pain continues CT abdomen showed a mild ileus but no bowel obstruction At 19:00 when I left the ER albuterol treatment was pending, case was signed out to Dr. Calvin This case was discussed with attending physician Nikunj who said at this point admission is the best plan and I texted hospitalist Dr. Pavon who okayed the admission Chest x-ray had no acute finding CV see was checked no anemia no white count Chemistry was checked, lactate was 1.2 troponin was 3.6 LFT lipase, renal function and electrolytes all normal Urinalysis was clear, was negative Patient was negative for flu and COVID but did test positive for RSV EKG was normal sinus rhythm with a rate of 96 Medications Administered Discontinued Medications Generic Name Dose Route Start Last Admin Trade Name Freq PRN Reason Stop Dose Admin Sodium Chloride 1,000 mls @ 999 mls/hr 12/31/24 16:15 12/31/24 18:04 Ns IVCONT 12/31/24 17:15 Infused .Q1H1M TAYA Infusion Iohexol 85 ml 12/31/24 17:24 12/31/24 17:24 Iohexol 350 Mg/Ml 100 Ml Infus..Btl IV 12/31/24 17:25 85 ml ONCE ONE Administration Morphine Sulfate 4 mg 12/31/24 16:04 12/31/24 17:43 Morphine Sulfate 4 Mg/Ml Cartridge IVPUSH 12/31/24 16:05 4 mg ONCE ONE Administration Protocol Morphine Sulfate 4 mg 12/31/24 18:05 12/31/24 18:09 Morphine Sulfate 4 Mg/Ml Cartridge IVPUSH 12/31/24 18:06 4 mg ONCE ONE Administration Protocol Ondansetron HCl 4 mg 12/31/24 16:04 12/31/24 17:15 Ondansetron Hcl 4 Mg/2 Ml Vial IVPUSH 12/31/24 16:05 4 mg ONCE ONE Administration Ondansetron HCl 4 mg 12/31/24 17:59 12/31/24 18:04 Ondansetron Hcl 4 Mg/2 Ml Vial IVPUSH 12/31/24 18:00 4 mg ONCE ONE Administration Medical Decision Making Lab Data MDM Lab Attestation statement: I reviewed the patient's lab results. 12/31/24 15:28 12/31/24 15:28 Labs: Lab Results 12/31/24 12/31/24 12/31/24 Range/Units 15:28 15:29 15:33 WBC 7.5 (4.8-10.8) X10*3/uL RBC 4.15 L (4.20-5.50) X10*6/uL Hgb 13.5 (12.0-16.0) g/dl Hct 39.2 (37.0-47.0) % MCV 94.5 (80.0-98.0) fL MCH 32.5 (27.0-33.0) pg MCHC 34.4 (31.0-35.0) g/dl RDW 12.5 (11.0-16.0) % Plt Count 163 (160-400) X10*3/uL MPV 10.7 (9.4-12.3) fL Immature Gran % (Auto) 0.1 (0.0-0.4) % Neut % (Auto) 86.0 H (45-73) % Lymph % (Auto) 8.0 L (20-40) % [place] % (Auto) 4.0 (2-11) % Eos % (Auto) 1.6 (0-4) % Baso % (Auto) 0.3 (0-2) % Lymph # (Auto) 0.6 L (1.2-4.9) X10*3/uL [place] # (Auto) 0.3 (0.1-1.2) X10*3/uL Eos # (Auto) 0.1 (0.0-0.4) X10*3/uL Baso # (Auto) 0.0 (0.0-0.2) X10*3/uL Abs Immat Gran (auto) 0.01 (0.00-0.03) X10*3/uL Absolute Neuts (auto) 6.4 (2.0-8.3) x10*3/uL Absolute Nucleated RBC 0.000 (0.0-0.012) X10*3/uL Nucleated RBC % (auto) 0.0 (0.0-0.2) /100WBC Sodium 140 (135-145) mmol/L Potassium 4.0 (3.3-5.1) mmol/L Chloride 108 (96-108) mmol/L Carbon Dioxide 23 (22-29) mmol/L Anion Gap 13 (12-20) BUN 7 L (9-16) mg/dL Creatinine 0.63 (0.5-1.4) mg/dL Estim Creat Clear Calc 93.3 Estimated GFR > 60 Random Glucose 102 (60-115) mg/dL Lactic Acid 1.2 (0.5-2.0) mmol/L Calcium 9.2 (8.4-10.2) mg/dL Magnesium 1.8 (1.6-2.6) mg/dL Total Bilirubin 0.4 (0.0-1.0) mg/dL Direct Bilirubin 0.1 (0.0-0.5) mg/dL AST 29 (5-31) U/L ALT 21 (0-31) U/L Alkaline Phosphatase 86 (39-117) U/L Troponin I High Sens 3.6 (<3.5-17.0) ng/L Total Protein 7.2 (6.5-8.0) g/dL Albumin 4.0 (3.5-5.0) g/dL Lipase 26 (8-78) U/L Beta HCG, Quant < 2 mIU/mL Urine Color Yellow Urine Appearance Clear Urine pH 6.5 (5.0-9.0) Ur Specific [place] <= 1.005 (1.005-1.025) Urine Protein Negative (Neg-Trace) mg/dL Urine Glucose (UA) Negative (Negative) mg/dL Urine Ketones Negative (Negative) mg/dL Urine Blood Negative (Negative) Urine Nitrite Negative (Negative) Ur Leukocyte Esterase Negative (Negative) Urine Test NEGATIVE (NEGATIVE) Influenza Type A (PCR) NEGATIVE (Negative) Influenza Type B (PCR) NEGATIVE (Negative) RSV RNA Qual (PCR) POSITIVE A (Negative) SARS-CoV-2 RNA (RT-PCR) NEGATIVE (Negative) Discharge Plan Discharge Clinical Impression: Ileus, Abdominal pain, Wheezing Prescriptions: No Action melatonin 3 mg tablet 3 mg PO BEDTIME ondansetron HCl 8 mg tablet PO lorazepam 0.5 mg tablet 0.5 mg PO QID PRN trazodone 50 mg tablet 50 mg PO BEDTIME mirtazapine 15 mg tablet 15 mg PO BEDTIME melatonin 5 mg capsule 5 mg PO .QHS 30 Days Qty: 30 0RF hydroxyzine HCl 25 mg tablet 25 mg PO TID PRN (Reason: anxiety) Qty: 20 0RF lorazepam 0.5 mg tablet 0.5 mg PO BID PRN (Reason: anxiety) Qty: 14 0RF prednisone 20 mg tablet 40 mg PO DAILY Qty: 10 0RF ondansetron 4 mg tablet,disintegrating 4 mg PO Q8H Qty: 10 0RF methocarbamol 750 mg tablet 750 mg PO Q8H Qty: 20 0RF albuterol sulfate 90 mcg/actuation HFA aerosol inhaler 2 puff inhalation Q6H PRN (Reason: shortness of breath or wheezing) Qty: 8.5 0RF Print Language: Togolese
[2024-12-31 14:46] VITALS: BP 149/92; PULSE 110; RESP 18; TEMP 37.6; O2SAT 99; BMI 26.2
--- NOTE | 2024-12-31 14:46 | ECG_ITS ---
Test Reason : CP Blood Pressure : */* mmHG Vent. Rate : 96 BPM Atrial Rate : 96 BPM P-R Int : 132 ms QRS Dur : 68 ms QT Int : 338 ms P-R-T Axes : 21 48 29 degrees QTcB Int : 427 ms Normal sinus rhythm Normal ECG No previous ECGs available Referred By: Tawnya Azul Electronically Signed By: LIZ BARGER
[2024-12-31 15:39] LABS: MANUAL DIFF FLAG NO
[2024-12-31 15:40] LABS: Basophils Percent Auto 0.3 % (0-2); Eosinophils Absolute Auto 0.1 X10*3/uL (0.0-0.4); Eosinophils Percent Auto 1.6 % (0-4); Hematocrit 39.2 % (37.0-47.0); Hemoglobin 13.5 g/dl (12.0-16.0); Imm Gran Abs Auto 0.01 X10*3/uL (0.00-0.03); Imm Gran Pct Auto 0.1 % (0.0-0.4); Lymphocytes Absolute Auto 0.6 X10*3/uL (1.2-4.9); Mean Corpuscular HGB Conc 34.4 g/dl (31.0-35.0); Mean Corpuscular Hemoglobin 32.5 pg (27.0-33.0); Mean Corpuscular Volume 94.5 fL (80.0-98.0); Mean Platelet Volume 10.7 fL (9.4-12.3); Monocytes Absolute Auto 0.3 X10*3/uL (0.1-1.2); Neutrophils Absolute Auto 6.4 x10*3/uL (2.0-8.3); Platelet Count 163 X10*3/uL (160-400); Red Blood Count 4.15 X10*6/uL (4.20-5.50); Red Cell Distribution Width 12.5 % (11.0-16.0); White Blood Count 7.5 X10*3/uL (4.8-10.8)
[2024-12-31 15:44] LABS: Appearance Urine Clear; Color Urine Yellow; Glucose Urine UA Negative (Negative); Leukocyte Esterase Urine Negative (Negative); Nitrite Urine Negative (Negative); PH 6.5 (5.0-9.0); Specific Gravity - Urine <= 1.005 (1.005-1.025); Urine Blood Negative (Negative); Urine Ketones Negative (Negative); Urine Protein Negative (Neg-Trace)
[2024-12-31 16:09] LABS: Lactic Acid 1.2 mmol/L (0.5-2.0)
[2024-12-31 16:18] LABS: Alanine Aminotransferase 21 U/L (0-31); Anion Gap 13 (12-20); Aspartate Amino Transferase 29 U/L (5-31); Bilirubin Direct 0.1 mg/dL (0.0-0.5); Bilirubin Total 0.4 mg/dL (0.0-1.0); Blood Urea Nitrogen 7 mg/dL (9-16); Calcium 9.2 mg/dL (8.4-10.2); Carbon Dioxide 23 mmol/L (22-29); Chloride 108 mmol/L (96-108); Creatinine Clr Calc Pharmacy 93.3; Estimated Glomerular Filt Rate > 60; Glucose Random 102 mg/dL (60-115); Lipase 26 U/L (8-78); Magnesium 1.8 mg/dL (1.6-2.6); Sodium 140 mmol/L (135-145); Total Protein 7.2 g/dL (6.5-8.0); Troponin-I High Sensitivity 3.6 ng/L (<3.5-17.0)
[2024-12-31 16:35] LABS: Influenza A PCR NEGATIVE (Negative); Influenza B PCR NEGATIVE (Negative); Resp Syncy Virus RNA Qual PCR POSITIVE (Negative); SARS COV2 PCR INHOUSE NEGATIVE (Negative)
[2024-12-31 16:53] LABS: Alkaline Phosphatase 86 U/L (39-117)
[2024-12-31] MEDS: 0.9 % Sodium Chloride 1,000 ML 999 ML IVCONT (17:02)
[2024-12-31 17:14] LABS: UPreg QC Valid YES; Urine Pregnancy NEGATIVE (NEGATIVE)
[2024-12-31] MEDS: ondansetron HCL 4 MG/2 ML VIAL IVPUSH ×3 (17:15→23:51)
[2024-12-31] MEDS: iohexoL 350 MG/ML 100 ML INFUS..BTL 85 ML IV (17:24)
--- NOTE | 2024-12-31 17:35 | PC.NURSE ---
Pain meds delay due to supply in Pyxis Rx notifed.
[2024-12-31] MEDS: Morphine Sulfate 4 MG/ML CARTRIDGE IVPUSH ×3 (17:43→22:57)
[2024-12-31 17:48] LABS: HCG Quantitative < 2 mIU/mL
[2024-12-31 18:41] VITALS: BP 145/92; PULSE 108; RESP 20; TEMP 36.9; O2SAT 97
[2024-12-31] MEDS: Albuterol/Iprat 2.5/0.5MG 3 ML AMPUL.NEB INHALE (19:40)
[2024-12-31] MEDS: Metoclopramide HCl 10 MG/2 ML VIAL IVPUSH (19:43)
[2024-12-31 20:06] VITALS: RESP 16
[2024-12-31] MEDS: HYDROmorphone HCl 1 MG/ML SYRINGE IVPUSH (20:06)
--- NOTE | 2024-12-31 20:58 | P.HPHOSP_ITS ---
History of Present Illness Date of Service: 12/31/24 Attending physician on admission: Dieudonne Pavon Chief Complaint: Abdominal pain, nausea, vomiting, cough Patient is a 49-year-old female with a past medical history significant for multiple abdominal surgeries including gastric bypass x3, cholecystectomy, appendectomy and multiple small bowel obstructions, fibromyalgia, insomnia, mild intermittent asthma, who presented to the ED today due to upper abdominal pain, nausea, vomiting, as well as wheezing and cough. She reports that her symptoms started 3 days ago initially with abdominal pain, nausea and vomiting. She reports chronic constipation usually goes about 3 days without a bowel movement which she has done again but has been unable to pass any gas and has severe abdominal discomfort. She also developed wheezing, cough and runny nose starting the following day. She has increased nausea and abdominal pain with eating. She measured a temperature at home of 101. She reports that she has been using her albuterol frequently for her cough and wheezing. She rates her epigastric pain at 10/10 as well as her nausea as severe. She was recently treated for an asthma exacerbation with albuterol and prednisone. Review of Systems 2 Constitutional: Constitutional: Reports fever(s) and Reports headache(s) Eyes: Eyes: Denies change in vision and Denies photophobia ENT: Reports headache(s), Reports nasal congestion, Reports nasal discharge and Denies sore throat Cardiovascular: Cardiovascular: Denies chest pain, Reports rapid heart rate, Denies leg edema, Denies lightheadedness and Reports dyspnea Respiratory: Respiratory: Reports cough, Reports dyspnea and Reports wheezing Gastrointestinal: Gastrointestinal: Reports abdominal pain, Reports constipation, Denies diarrhea, Reports nausea, Reports vomiting and Denies hematemesis Genitourinary: Genitourinary: Denies difficulty voiding, Denies dysuria and Denies urinary urgency Musculoskeletal: Musculoskeletal: Denies back pain Integumentary/Breasts: Skin/Breast: Denies rash Neurologic: Denies confusion and Reports headache(s) Psychiatric: Psychiatric: Denies confusion Endocrine: Endocrine: Denies polyuria Hematologic/Lymphatic: Hematologic/Lymphatic: Denies easy bleeding and Denies easy bruising Allergic/Immunologic: Allergic/Immunologic: Reports wheezing [facility] Medical History (Updated 12/31/24 @ 21:06 by Milagros Frausto PA-C) Fibromyalgia Mild intermittent asthma History of small bowel obstruction Functional capacity: independent ambulation Patient : No Surgical History (Updated 12/31/24 @ 21:06 by Milagros Frausto PA-C) History of appendectomy H/O breast augmentation S/P cholecystectomy H/O gastric bypass Social History Smoked in Last 30 Days: No Use of substances other than those prescribed or required for medical reasons: No Advance Directives: No Advance Directives Information Provided: Yes Patient : No Narrative: No smoking, alcohol or drug use Meds Allergies Allergy/AdvReac Type Severity Reaction Status Date / Time hydrocodone [From Vicodin] Allergy Anaphylaxis Verified 12/31/24 14:48 Penicillins Allergy Rash Verified 12/31/24 14:48 Active Medications: Current Medications Acetaminophen (Acetaminophen 325 Mg Tablet) 650 mg PO Q6H PRN PRN Reason: Pain, Mild 1-3,fever,headache Albuterol/Ipratropium (Albuterol/Iprat 2.5/0.5mg 3 Ml Ampul.Neb) 3 ml INHALE Q4H PRN PRN Reason: Wheezing Albuterol/Ipratropium (Albuterol/Iprat 2.5/0.5mg 3 Ml Ampul.Neb) 3 ml INHALE RQ4H WHILE AWAKE TAYA Calcium Carbonate (Calcium Carbonate 750 Mg Tab.Chew) 750 mg PO Q4H PRN PRN Reason: Heartburn Enoxaparin Sodium (Enoxaparin Sodium 40 Mg/0.4 Ml Syringe) 40 mg SUBCUT Q24H [facility] Guaifenesin/Codeine Phosphate (Guaifen/Codeine Sf 200/20/10ml 10 Ml Liquid) 10 ml PO Q4H PRN PRN Reason: Cough Lactated Ringer's (Lr) 1,000 mls @ 100 mls/hr IVCONT .Q10H [facility] Stop: 01/01/25 06:14 Magnesium Hydroxide (Milk Of Magnesia 30 Ml Oral.Susp) 30 ml PO DAILY PRN PRN Reason: Constipation Melatonin (Melatonin 3 Mg Tablet) 6 mg PO BEDTIME PRN PRN Reason: Insomnia Morphine Sulfate (Morphine Sulfate 4 Mg/Ml Cartridge) 4 mg IVPUSH Q4H PRN; Protocol PRN Reason: Pain, Severe (Pain Scale 7-10) Ondansetron HCl (Ondansetron Hcl 4 Mg/2 Ml Vial) 4 mg IVPUSH Q8H PRN PRN Reason: Nausea and Vomiting Sodium Chloride (0.9 % Sodium Chloride Flush 3 Ml Syringe) 3 ml IVFLUSH QSHIFT [facility] Home Medications ?Medication ?Instructions ?Recorded ?Confirmed ?Last Taken ?Type trazodone 50 mg tablet 50 mg PO BEDTIME PRN Sleep 08/02/24 12/31/24 12/24/24 History gabapentin 600 mg tablet 300 mg PO TID PRN Pain 12/31/24 12/31/24 12/28/24 History melatonin 5 mg tablet 5 mg PO BEDTIME PRN Sleep 12/31/24 12/31/24 Unknown History methocarbamol 750 mg tablet 750 mg PO Q8H PRN Muscle Spasm 12/31/24 12/31/24 12/31/24 07:00 History Physical Exam 2 Vital Signs and Narrative: Vital Signs: Last Vital Signs Temp 98.5 F 12/31/24 18:41 Pulse 108 H 12/31/24 18:41 Resp 16 12/31/24 20:06 BP 145/92 H 12/31/24 18:41 Pulse Ox 97 12/31/24 18:41 O2 Del Method Room Air 12/31/24 18:41 BMI result Body Mass Index 26.2 General: AOx3, no acute distress Resp: Mild inspiratory and expiratory wheezing, no rhonchi or crackles CVS: Mild tachycardia, regular rhythm, no murmur GI: Hypoactive bowel sounds, tender epigastric region, no distention Skin: Warm, dry Neuro: Cranial nerves II-XII grossly intact bilaterally. Motor grossly intact bilaterally Extremities: No lower extremity edema Psych: Appropriate affect Const: General: No confusion Orientation/consciousness: No confusion Eyes: Direct Ophthalmoscopy: No photophobia Neuro: General: No confusion Results Labs 12/31/24 15:28 12/31/24 15:28 Labs: Laboratory Results - last 24 hr 12/31/24 12/31/24 12/31/24 15:28 15:29 15:33 MCV 94.5 MCH 32.5 MCHC 34.4 RDW 12.5 Plt Count 163 MPV 10.7 Immature Gran % (Auto) 0.1 Neut % (Auto) 86.0 H Lymph % (Auto) 8.0 L [place] % (Auto) 4.0 Eos % (Auto) 1.6 Baso % (Auto) 0.3 Lymph # (Auto) 0.6 L [place] # (Auto) 0.3 Eos # (Auto) 0.1 Baso # (Auto) 0.0 Abs Immat Gran (auto) 0.01 Absolute Neuts (auto) 6.4 Absolute Nucleated RBC 0.000 Nucleated RBC % (auto) 0.0 Anion Gap 13 Estim Creat Clear Calc 93.3 Estimated GFR > 60 Random Glucose 102 Lactic Acid 1.2 Calcium 9.2 Magnesium 1.8 Total Bilirubin 0.4 Direct Bilirubin 0.1 AST 29 ALT 21 Alkaline Phosphatase 86 Total Protein 7.2 Albumin 4.0 Lipase 26 Beta HCG, Quant < 2 Urine Color Yellow Urine Appearance Clear Urine pH 6.5 Ur Specific [place] <= 1.005 Urine Protein Negative Urine Glucose (UA) Negative Urine Ketones Negative Urine Blood Negative Urine Nitrite Negative Ur Leukocyte Esterase Negative Urine Test NEGATIVE Influenza Type A (PCR) NEGATIVE Influenza Type B (PCR) NEGATIVE RSV RNA Qual (PCR) POSITIVE A SARS-CoV-2 RNA (RT-PCR) NEGATIVE Assessment and Plan (1) Ileus: Status: Acute (2) Acute asthma exacerbation: Status: Acute (3) RSV infection: Status: Acute Plan Patient is a 49-year-old female with a past medical history significant for multiple abdominal surgeries including gastric bypass x3, cholecystectomy, appendectomy and multiple small bowel obstructions, fibromyalgia, insomnia, mild intermittent asthma, who presented to the ED today due to upper abdominal pain, nausea, vomiting, as well as wheezing and cough. Ileus - WBC 7.5, lactic acid normal, mild tachycardia (secondary to albuterol), no sepsis - abdominopelvic CT with possible ileus - UA negative - NPO, bowel rest - IV fluids: LR 100ml/hr - consider NG tube if vomiting recurs - KUB in a.m. - monitor CBC and BMP Acute asthma exacerbation secondary to RSV - DuoNebs q.4h p.r.n. - supportive care Full code VTE prophylaxis: Lovenox Patient with possible ileus as well as acute asthma exacerbation secondary to RSV, requiring admission for IV fluids, monitoring and nebulizer treatments for at least 2 midnights stay. Quality Stroke Does the patient have a stroke diagnosis?: No VTE Prior VTE?: No VTE Risk Level:: Medical - moderate - high VTE Device Contraindication: Treatment Not Indicated VTE Drug Contraindication: N/A - Med Ordered
--- NOTE | 2024-12-31 21:03 | PHA.MEDREC ---
Addendum entered by Rosa Romero RP 12/31/24 22:47: Reviewed by [facility] Original Note: Pharmacy Consult ? Medication Reconciliation Pharmacy has completed the medication reconciliation. Spoke with patient to confirm. All of her medications are as needed. 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 She was taking lorazepam as needed for anxiety, ran out 6 weeks ago, left off of med list. She has been using OTC dayquil and nightquil as needed due to recent symptoms.
[2024-12-31] MEDS: Lactated Ringers 1,000 ML 100 ML IVCONT (21:25)
[2024-12-31] MEDS: Enoxaparin Sodium 40 MG/0.4 ML SYRINGE SUBCUT (21:29)
[2024-12-31] MEDS: methylPREDNISolone Sod Succ 40 MG/ML VIAL IVPUSH (22:26)
[2024-12-31] MEDS: 0.9 % Sodium Chloride Flush 3 ML SYRINGE IVFLUSH (23:00)
[2024-12-31 23:19] VITALS: BMI 29.3
[2024-12-31 23:22] VITALS: BP 119/76; PULSE 93; RESP 20; TEMP 36.5; O2SAT 93
[2024-12-31 23:27] VITALS: RESP 18
--- NOTE | 2024-12-31 23:55 | PC.NURSE ---
2355- okay per hospitalist on duty to medicated patient with IVP zofran at this time for stated nausea, earlier than times per MAR and ED dose, will monitor
[2025-01-01] VITALS (12 sets, daily range): BP systolic 101–117; BP diastolic 56–73; PULSE 70–95; RESP 15–20; TEMP 36.1–37; O2SAT 94–98
[2025-01-01] MEDS: Albuterol/Iprat 2.5/0.5MG 3 ML AMPUL.NEB INHALE ×6 (01:31→23:38)
[2025-01-01] MEDS: guaiFEN/Codeine SF 200/20/10ML 10 ML LIQUID PO ×3 (01:45→19:40)
[2025-01-01 05:54] LABS: MANUAL DIFF FLAG NO
[2025-01-01 06:00] LABS: Basophils Percent Auto 0.2 % (0-2); Hematocrit 35.4 % (37.0-47.0); Imm Gran Abs Auto 0.02 X10*3/uL (0.00-0.03); Imm Gran Pct Auto 0.4 % (0.0-0.4); Lymphocytes Absolute Auto 0.5 X10*3/uL (1.2-4.9); Lymphocytes Percent Auto 8.3 % (20-40); Mean Corpuscular HGB Conc 33.9 g/dl (31.0-35.0); Mean Corpuscular Hemoglobin 32.3 pg (27.0-33.0); Mean Corpuscular Volume 95.2 fL (80.0-98.0); Mean Platelet Volume 10.7 fL (9.4-12.3); Monocytes Absolute Auto 0.2 X10*3/uL (0.1-1.2); Monocytes Percent Auto 2.8 % (2-11); Neutrophils Absolute Auto 4.8 x10*3/uL (2.0-8.3); Neutrophils Percent Auto 88.3 % (45-73); Platelet Count 148 X10*3/uL (160-400); Red Blood Count 3.72 X10*6/uL (4.20-5.50); Red Cell Distribution Width 12.6 % (11.0-16.0); White Blood Count 5.4 X10*3/uL (4.8-10.8)
[2025-01-01] MEDS: Morphine Sulfate 4 MG/ML CARTRIDGE IVPUSH ×3 (06:14→19:39)
[2025-01-01 06:20] LABS: Anion Gap 12 (12-20); Blood Urea Nitrogen 8 mg/dL (9-16); Carbon Dioxide 24 mmol/L (22-29); Chloride 109 mmol/L (96-108); Estimated Glomerular Filt Rate > 60; Glucose Random 143 mg/dL (60-115); Potassium 4.2 mmol/L (3.3-5.1); Sodium 141 mmol/L (135-145)
[2025-01-01] MEDS: methylPREDNISolone Sod Succ 40 MG/ML VIAL IVPUSH (07:58)
[2025-01-01] MEDS: ondansetron HCL 4 MG/2 ML VIAL IVPUSH (07:58)
[2025-01-01] MEDS: 0.9 % Sodium Chloride Flush 3 ML SYRINGE IVFLUSH (08:00)
--- NOTE | 2025-01-01 08:10 | HO.PM.IMPN ---
Subjective Subjective Date of Service: 01/01/25 Interval History: Ielus ,asthma excerebation Review of Systems sob improving has abd pain ,did not pass any bm yet Physical Exam Vital Signs: Vital Signs: Last Vital Signs Temp 97.3 F 01/01/25 04:00 Pulse 94 01/01/25 04:00 Resp 18 01/01/25 04:00 BP 117/72 01/01/25 04:00 Pulse Ox 94 01/01/25 04:00 O2 Del Method Room Air 01/01/25 04:00 BMI result Body Mass Index 29.3 Appearance: Alert.? Oriented X3.? s. cvs: rrr, [id number] , no murmur res: clear to auscultation ,no rhonchii or wheezing abd: no rebound or guarding ,epigastric discomfort, bs present. ext pulses present , no cyanosis . neuro: axo3 , nonfocal. Objective Data Active Medications Acetaminophen (Acetaminophen 325 Mg Tablet) 650 mg PO Q6H PRN PRN Reason: Pain, Mild 1-3,fever,headache Albuterol/Ipratropium (Albuterol/Iprat 2.5/0.5mg 3 Ml Ampul.Neb) 3 ml INHALE Q4H PRN PRN Reason: Wheezing Last Admin: 01/01/25 01:31 Dose: 3 ml Documented By: MYRON Albuterol/Ipratropium (Albuterol/Iprat 2.5/0.5mg 3 Ml Ampul.Neb) 3 ml INHALE RQ4H WHILE AWAKE [facility] Calcium Carbonate (Calcium Carbonate 750 Mg Tab.Chew) 750 mg PO Q4H PRN PRN Reason: Heartburn Enoxaparin Sodium (Enoxaparin Sodium 40 Mg/0.4 Ml Syringe) 40 mg SUBCUT Q24H TAYA Last Admin: 12/31/24 21:29 Dose: 40 mg Documented By: CHRIS Guaifenesin/Codeine Phosphate (Guaifen/Codeine Sf 200/20/10ml 10 Ml Liquid) 10 ml PO Q4H PRN PRN Reason: Cough Last Admin: 01/01/25 01:45 Dose: 10 ml Documented By: FRANCISCO JAVIER Lactated Ringer's (Lr) 1,000 mls @ 80 mls/hr IVCONT .[id number] [facility] Magnesium Hydroxide (Milk Of Magnesia 30 Ml Oral.Susp) 30 ml PO DAILY PRN PRN Reason: Constipation Melatonin (Melatonin 3 Mg Tablet) 6 mg PO BEDTIME PRN PRN Reason: Insomnia Methylprednisolone Sodium Succinate (Methylprednisolone Sod Succ 40 Mg/Ml Vial) 40 mg IVPUSH Q12H [facility] Last Admin: 01/01/25 07:58 Dose: 40 mg Documented By: DENILSON Morphine Sulfate (Morphine Sulfate 4 Mg/Ml Cartridge) 4 mg IVPUSH Q4H PRN; Protocol PRN Reason: Pain, Severe (Pain Scale 7-10) Last Admin: 01/01/25 06:14 Dose: 4 mg Documented By: FRANCISCO JAVIER Ondansetron HCl (Ondansetron Hcl 4 Mg/2 Ml Vial) 4 mg IVPUSH Q8H PRN PRN Reason: Nausea and Vomiting Last Admin: 01/01/25 07:58 Dose: 4 mg Documented By: DENILSON Sodium Chloride (0.9 % Sodium Chloride Flush 3 Ml Syringe) 3 ml IVFLUSH QSHIFT [facility] Last Admin: 01/01/25 08:00 Dose: 3 ml Documented By: DENILSON Trazodone HCl (Trazodone Hcl 50 Mg Tablet) 50 mg PO BEDTIME PRN PRN Reason: Sleep Labs 01/01/25 05:28 01/01/25 05:28 Labs: Laboratory Results - last 24 hr 12/31/24 12/31/24 12/31/24 15:28 15:29 15:33 MCV 94.5 MCH 32.5 MCHC 34.4 RDW 12.5 Plt Count 163 MPV 10.7 Immature Gran % (Auto) 0.1 Neut % (Auto) 86.0 H Lymph % (Auto) 8.0 L [place] % (Auto) 4.0 Eos % (Auto) 1.6 Baso % (Auto) 0.3 Lymph # (Auto) 0.6 L [place] # (Auto) 0.3 Eos # (Auto) 0.1 Baso # (Auto) 0.0 Abs Immat Gran (auto) 0.01 Absolute Neuts (auto) 6.4 Absolute Nucleated RBC 0.000 Nucleated RBC % (auto) 0.0 Anion Gap 13 Estim Creat Clear Calc 93.3 Estimated GFR > 60 Random Glucose 102 Lactic Acid 1.2 Calcium 9.2 Magnesium 1.8 Total Bilirubin 0.4 Direct Bilirubin 0.1 AST 29 ALT 21 Alkaline Phosphatase 86 Total Protein 7.2 Albumin 4.0 Lipase 26 Beta HCG, Quant < 2 Urine Color Yellow Urine Appearance Clear Urine pH 6.5 Ur Specific [place] <= 1.005 Urine Protein Negative Urine Glucose (UA) Negative Urine Ketones Negative Urine Blood Negative Urine Nitrite Negative Ur Leukocyte Esterase Negative Urine Test NEGATIVE Influenza Type A (PCR) NEGATIVE Influenza Type B (PCR) NEGATIVE RSV RNA Qual (PCR) POSITIVE A SARS-CoV-2 RNA (RT-PCR) NEGATIVE 01/01/25 05:28 MCV 95.2 MCH 32.3 MCHC 33.9 RDW 12.6 Plt Count 148 L MPV 10.7 Immature Gran % (Auto) 0.4 Neut % (Auto) 88.3 H Lymph % (Auto) 8.3 L [place] % (Auto) 2.8 Eos % (Auto) 0.0 Baso % (Auto) 0.2 Lymph # (Auto) 0.5 L [place] # (Auto) 0.2 Eos # (Auto) 0.0 Baso # (Auto) 0.0 Abs Immat Gran (auto) 0.02 Absolute Neuts (auto) 4.8 Absolute Nucleated RBC 0.000 Nucleated RBC % (auto) 0.0 Anion Gap 12 Estim Creat Clear Calc 94.0 Estimated GFR > 60 Random Glucose 143 H Lactic Acid Calcium 9.0 Magnesium Total Bilirubin Direct Bilirubin AST ALT Alkaline Phosphatase Total Protein Albumin Lipase Beta HCG, Quant Urine Color Urine Appearance Urine pH Ur Specific [place] Urine Protein Urine Glucose (UA) Urine Ketones Urine Blood Urine Nitrite Ur Leukocyte Esterase Urine Test Influenza Type A (PCR) Influenza Type B (PCR) RSV RNA Qual (PCR) SARS-CoV-2 RNA (RT-PCR) Assessment and Plan (1) RSV infection: Status: Acute Assessment and Plan: 49-year-old female with a past medical history significant for multiple abdominal surgeries including gastric bypass x3, cholecystectomy, appendectomy and multiple small bowel obstructions, fibromyalgia, insomnia, mild intermittent asthma, who presented to the ED today due to upper abdominal pain, nausea, vomiting, as well as wheezing and cough. Ileus- WBC 7.5, lactic acid normal, mild tachycardia (secondary to albuterol), no sepsis abdominopelvic CT with possible ileus,UA negative plan: keep NPO, bowel rest, IV fluids: LR 100ml/hr KUB: No acute findings or evidence of bowel obstruction. Stable postoperative changes. plan: consider NG tube if vomiting recurs, monitor CBC and BMP added surgery veal. Acute asthma exacerbation secondary to RSV improving - DuoNebs q.4h p.r.n., adjusted solumedrol to 40mg qd - supportive care Full code VTE prophylaxis: Lovenox Quality Stroke Does the patient have a stroke diagnosis?: No VTE Prior VTE?: No VTE Risk Level:: Medical - moderate - high VTE Device Contraindication: Treatment Not Indicated VTE Drug Contraindication: N/A - Med Ordered
--- NOTE | 2025-01-01 11:53 | MHC.CM.PN ---
CM MET WITH PT AT BEDSIDE. 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 PT DECLINES COMPLETING A HCP AT THIS TIME. NO PCP, [facility] [place] [facility] PROVIDED. DP: HOME, NO SERVICES ANTICIPATED. PT HAS OWN RIDE HOME. CM WILL CONTINUE TO FOLLOW FOR ANY CHANGE TO DC PLAN/NEEDS.
--- NOTE | 2025-01-01 12:39 | PM.CNGS ---
History of Present Illness Consult details Consult date: 01/01/25 Requesting physician: Josh Funez Narrative: 49-year-old female patient presenting with complaints of abdominal pain and constipation found on CT abdomen and pelvis to have evidence of an ileus. Her past surgical history is significant for multiple abdominal surgeries including gastric bypass x3, complicated by small-bowel obstructions requiring surgical intervention, cholecystectomy, appendectomy, recently found to be positive for RSV. She reports the pain to be sharp with occasional waves of increased pain felt mainly in the upper abdomen especially right upper quadrant. Her appetite is reduced and she reports persistent constipation. While at home she had increased nausea, vomiting, and abdominal pain after eating. She also reported wheezing, cough, and runny nose with a associated low-grade fever. She subsequently presented to the emergency department for further evaluation. Surgical consultation was requested regarding the ileus. CT abdomen and pelvis from 12/31/2024 revealed atelectasis within the left lower lobe with mild ground-glass opacities within the right lower lobe also possibly secondary to atelectasis. No bowel wall edema or obstruction was identified. Colonic diverticulosis without diverticulitis is also identified. Review of Systems Review of Systems: Yes all other systems are reviewed and are negative [facility] Past Medical History Medical History (Updated 12/31/24 @ 21:06 by Milagros Frausto PA-C) Fibromyalgia Mild intermittent asthma History of small bowel obstruction Surgical History Surgical History (Updated 12/31/24 @ 21:06 by Milagros Frausto PA-C) History of appendectomy H/O breast augmentation S/P cholecystectomy H/O gastric bypass Social History Social History Household Members: Significant Other Housing: Apartment Do you presently have visiting nurse or other home services: No Patient Tobacco Use Status: Former Tobacco user Tobacco use type: Cigarette e-Cigarette/Vaping Use: Never Used Second Hand Smoke Exposure: No service: No Meds Allergies Allergy/AdvReac Type Severity Reaction Status Date / Time hydrocodone [From Vicodin] Allergy Anaphylaxis Verified 12/31/24 14:48 Penicillins Allergy Rash Verified 12/31/24 14:48 Active Medications: Current Medications Acetaminophen (Acetaminophen 325 Mg Tablet) 650 mg PO Q6H PRN PRN Reason: Pain, Mild 1-3,fever,headache Albuterol/Ipratropium (Albuterol/Iprat 2.5/0.5mg 3 Ml Ampul.Neb) 3 ml INHALE Q4H PRN PRN Reason: Wheezing Last Admin: 01/01/25 01:31 Dose: 3 ml Albuterol/Ipratropium (Albuterol/Iprat 2.5/0.5mg 3 Ml Ampul.Neb) 3 ml INHALE RQ4H WHILE AWAKE [facility] Last Admin: 01/01/25 09:31 Dose: 3 ml Calcium Carbonate (Calcium Carbonate 750 Mg Tab.Chew) 750 mg PO Q4H PRN PRN Reason: Heartburn Enoxaparin Sodium (Enoxaparin Sodium 40 Mg/0.4 Ml Syringe) 40 mg SUBCUT Q24H [facility] Last Admin: 12/31/24 21:29 Dose: 40 mg Guaifenesin/Codeine Phosphate (Guaifen/Codeine Sf 200/20/10ml 10 Ml Liquid) 10 ml PO Q4H PRN PRN Reason: Cough Last Admin: 01/01/25 01:45 Dose: 10 ml Lactated Ringer's (Lr) 1,000 mls @ 80 mls/hr IVCONT .[id number] [facility] Magnesium Hydroxide (Milk Of Magnesia 30 Ml Oral.Susp) 30 ml PO DAILY PRN PRN Reason: Constipation Melatonin (Melatonin 3 Mg Tablet) 6 mg PO BEDTIME PRN PRN Reason: Insomnia Methylprednisolone Sodium Succinate (Methylprednisolone Sod Succ 40 Mg/Ml Vial) 40 mg IVPUSH Q12H [facility] Last Admin: 01/01/25 07:58 Dose: 40 mg Morphine Sulfate (Morphine Sulfate 4 Mg/Ml Cartridge) 4 mg IVPUSH Q4H PRN; Protocol PRN Reason: Pain, Severe (Pain Scale 7-10) Last Admin: 01/01/25 12:35 Dose: 4 mg Ondansetron HCl (Ondansetron Hcl 4 Mg/2 Ml Vial) 4 mg IVPUSH Q8H PRN PRN Reason: Nausea and Vomiting Last Admin: 01/01/25 07:58 Dose: 4 mg Sodium Chloride (0.9 % Sodium Chloride Flush 3 Ml Syringe) 3 ml IVFLUSH QSHIFT [facility] Last Admin: 01/01/25 08:00 Dose: 3 ml Trazodone HCl (Trazodone Hcl 50 Mg Tablet) 50 mg PO BEDTIME PRN PRN Reason: Sleep Home Medications ?Medication ?Instructions ?Recorded ?Confirmed ?Last Taken ?Type trazodone 50 mg tablet 50 mg PO BEDTIME PRN Sleep 08/02/24 12/31/24 12/24/24 History gabapentin 600 mg tablet 300 mg PO TID PRN Pain 12/31/24 12/31/24 12/28/24 History melatonin 5 mg tablet 5 mg PO BEDTIME PRN Sleep 12/31/24 12/31/24 Unknown History methocarbamol 750 mg tablet 750 mg PO Q8H PRN Muscle Spasm 12/31/24 12/31/24 12/31/24 07:00 History Physical Exam Vital Signs: Vital Signs: Last Vital Signs Temp 97.0 F 01/01/25 08:43 Pulse 78 01/01/25 09:33 Resp 16 01/01/25 09:33 BP 109/73 01/01/25 08:43 Pulse Ox 95 01/01/25 08:43 O2 Del Method Room Air 01/01/25 08:43 BMI result Body Mass Index 29.3 Const: General: no acute distress Nutritional Appearance: well nourished Orientation/consciousness: patient oriented x3 Limitations: no limitations Resp: Effort & Inspection: normal respiratory effort, no audible wheezes, no cough and no respiratory distress GI: Other: Exam deferred Neuro: General: patient oriented x3 Extrem: Other: No edema Results Labs 01/01/25 05:28 01/01/25 05:28 Labs: Abnormal lab results 12/31/24 12/31/24 01/01/25 Range/Units 15:28 15:29 05:28 RBC 4.15 L 3.72 L (4.20-5.50) X10*6/uL Hct 35.4 L (37.0-47.0) % Plt Count 148 L (160-400) X10*3/uL Neut % (Auto) 86.0 H 88.3 H (45-73) % Lymph % (Auto) 8.0 L 8.3 L (20-40) % Lymph # (Auto) 0.6 L 0.5 L (1.2-4.9) X10*3/uL Chloride 109 H (96-108) mmol/L BUN 7 L 8 L (9-16) mg/dL Random Glucose 143 H (60-115) mg/dL RSV RNA Qual (PCR) POSITIVE A (Negative) Short CBC 12/31/24 01/01/25 Range/Units 15:28 05:28 WBC 7.5 5.4 (4.8-10.8) X10*3/uL Hgb 13.5 12.0 (12.0-16.0) g/dl Hct 39.2 35.4 L (37.0-47.0) % Plt Count 163 148 L (160-400) X10*3/uL BMP 12/31/24 01/01/25 15:28 05:28 Sodium 140 141 Potassium 4.0 4.2 Chloride 108 109 H Carbon Dioxide 23 24 BUN 7 L 8 L Creatinine 0.63 0.66 Calcium 9.2 9.0 Liver Function 12/31/24 Range/Units 15:28 Total Bilirubin 0.4 (0.0-1.0) mg/dL Direct Bilirubin 0.1 (0.0-0.5) mg/dL AST 29 (5-31) U/L ALT 21 (0-31) U/L Alkaline Phosphatase 86 (39-117) U/L Albumin 4.0 (3.5-5.0) g/dL Urine 12/31/24 Range/Units 15:33 Urine Color Yellow Urine Appearance Clear Urine pH 6.5 (5.0-9.0) Ur Specific [place] <= 1.005 (1.005-1.025) Urine Protein Negative (Neg-Trace) mg/dL Urine Glucose (UA) Negative (Negative) mg/dL Urine Test NEGATIVE (NEGATIVE) All other labs normal. Assessment and Plan (1) Ileus: Status: Acute Plan 49-year-old female with multiple abdominal surgeries presenting with complaints of abdominal pain in the upper abdomen as well as upper respiratory symptoms associated with RSV. CT abdomen and pelvis reviewed and I concur with the diagnosis of ileus. Recommend supportive care. Suggest bariatric surgery consultation if pain persists to evaluate bypass. Procedures Date of Service Date of Service: 01/01/25
[2025-01-01] MEDS: Lactated Ringers 1,000 ML 80 ML IVCONT (13:42)
[2025-01-01] MEDS: Acetaminophen 325 MG TABLET 975 MG PO (17:40)
[2025-01-01] MEDS: Enoxaparin Sodium 40 MG/0.4 ML SYRINGE SUBCUT (20:30)
[2025-01-01] MEDS: Butalb/Acetamin/Caff 50/325/40 TABLET 1 TAB PO (23:29)
[2025-01-02] VITALS (14 sets, daily range): BP systolic 112–138; BP diastolic 70–77; PULSE 71–87; RESP 16–20; TEMP 36.3–37.1; O2SAT 92–99
[2025-01-02] MEDS: Morphine Sulfate 4 MG/ML CARTRIDGE IVPUSH ×5 (01:17→21:58)
[2025-01-02] MEDS: ondansetron HCL 4 MG/2 ML VIAL IVPUSH ×3 (01:18→21:24)
[2025-01-02] MEDS: Lactated Ringers 1,000 ML 80 ML IVCONT ×2 (01:21→17:47)
[2025-01-02] MEDS: Albuterol/Iprat 2.5/0.5MG 3 ML AMPUL.NEB INHALE ×4 (04:38→20:44)
[2025-01-02] MEDS: guaiFEN/Codeine SF 200/20/10ML 10 ML LIQUID PO ×3 (08:05→21:58)
[2025-01-02] MEDS: methylPREDNISolone Sod Succ 40 MG/ML VIAL IVPUSH (08:06)
--- NOTE | 2025-01-02 09:26 | PM.PNGS ---
Subjective Subjective Date of Service: 01/02/25 Interval history: C/o persistent nausea and crampy diffuse abdominal pain. No flatus or BM since Sat. Feels like similar episodes of SBOs. Physical Exam Vital Signs: Vital Signs: Last Vital Signs Temp 97.8 F 01/02/25 07:17 Pulse 78 01/02/25 08:40 Resp 20 01/02/25 08:40 BP 112/74 01/02/25 07:17 Pulse Ox 95 01/02/25 07:17 O2 Del Method Room Air 01/02/25 07:17 BMI result Body Mass Index 29.3 Const: General: no acute distress, alert and anxious Orientation/consciousness: patient oriented x3 Resp: Effort & Inspection: normal respiratory effort, Actively coughing and no use of accessory muscles GI: Inspection: No distended Palpation (GI): Soft to palpation, Tenderness to palpation present (GI) (diffuse tenderness) and no guarding Percussion: Yes normal to percussion Skin: General skin exam: no rashes or lesions noted Neuro: General: patient oriented x3 and moves all extremities Objective Data Active Medications Acetaminophen (Acetaminophen 325 Mg Tablet) 650 mg PO Q6H PRN PRN Reason: Pain, Mild 1-3,fever,headache Albuterol/Ipratropium (Albuterol/Iprat 2.5/0.5mg 3 Ml Ampul.Neb) 3 ml INHALE Q4H PRN PRN Reason: Wheezing Last Admin: 01/02/25 04:38 Dose: 3 ml Documented By: ARTHUR Albuterol/Ipratropium (Albuterol/Iprat 2.5/0.5mg 3 Ml Ampul.Neb) 3 ml INHALE RQ4H WHILE AWAKE [facility] Last Admin: 01/02/25 08:38 Dose: 3 ml Documented By: MANOLO Calcium Carbonate (Calcium Carbonate 750 Mg Tab.Chew) 750 mg PO Q4H PRN PRN Reason: Heartburn Enoxaparin Sodium (Enoxaparin Sodium 40 Mg/0.4 Ml Syringe) 40 mg SUBCUT Q24H [facility] Last Admin: 01/01/25 20:30 Dose: 40 mg Documented By: FRANCISCO JAVIER Guaifenesin/Codeine Phosphate (Guaifen/Codeine Sf 200/20/10ml 10 Ml Liquid) 10 ml PO Q4H PRN PRN Reason: Cough Last Admin: 01/02/25 08:05 Dose: 10 ml Documented By: ARANZA Lactated Ringer's (Lr) 1,000 mls @ 80 mls/hr IVCONT .[id number] [facility] Last Admin: 01/02/25 01:21 Dose: 80 mls/hr Documented By: FRANCISCO JAVIER Magnesium Hydroxide (Milk Of Magnesia 30 Ml Oral.Susp) 30 ml PO DAILY PRN PRN Reason: Constipation Melatonin (Melatonin 3 Mg Tablet) 6 mg PO BEDTIME PRN PRN Reason: Insomnia Methylprednisolone Sodium Succinate (Methylprednisolone Sod Succ 40 Mg/Ml Vial) 40 mg IVPUSH Q24H [facility] Last Admin: 01/02/25 08:06 Dose: 40 mg Documented By: ARANZA Morphine Sulfate (Morphine Sulfate 4 Mg/Ml Cartridge) 4 mg IVPUSH Q4H PRN; Protocol PRN Reason: Pain, Severe (Pain Scale 7-10) Last Admin: 01/02/25 08:07 Dose: 4 mg Documented By: ARANZA Ondansetron HCl (Ondansetron Hcl 4 Mg/2 Ml Vial) 4 mg IVPUSH Q8H PRN PRN Reason: Nausea and Vomiting Last Admin: 01/02/25 01:18 Dose: 4 mg Documented By: FRANCISCO JAVIER Sodium Chloride (0.9 % Sodium Chloride Flush 3 Ml Syringe) 3 ml IVFLUSH QSHIFT [facility] Last Admin: 01/02/25 08:17 Dose: Not Given Documented By: ARANZA Non-Admin Reason: IV Running Trazodone HCl (Trazodone Hcl 50 Mg Tablet) 50 mg PO BEDTIME PRN PRN Reason: Sleep Labs 01/01/25 05:28 01/01/25 05:28 Microbiology Microbiology Results: Microbiology 12/31/24 15:29 Blood Culture - Preliminary Blood - Venous No growth after 24 hours. 12/31/24 15:28 Blood Culture - Preliminary Blood - Venous No growth after 24 hours. Procedures Date of Service Date of Service: 01/02/25 Progress Note: A&P Assessment and plan (1) RSV infection: Status: Acute (2) Abdominal pain: Status: Acute Plan Has persistent abd pain, nausea and obstipation. ?ileus vs SBO. KUB yesterday unrevealing. Discussed SBFT or repeat CT scan with oral contrast with her given her persistent symptoms as diagnostic and possible therapeutic measure. She is in agreement. Time Spent With Patient Time: Total time managing care of this patient today ____ minutes. Quality Stroke Does the patient have a stroke diagnosis?: No VTE Prior VTE?: No VTE Risk Level:: Medical - moderate - high VTE Device Contraindication: Treatment Not Indicated VTE Drug Contraindication: N/A - Med Ordered
[2025-01-02] MEDS: Diatrizoate Meglumine, Sodium 120 ML SOLUTION 240 ML PO (12:56)
--- NOTE | 2025-01-02 13:02 | MHC.CM.PN ---
EMR REVIEWED AND PER MD ROUNDS, PT IS NOT MEDICALLY CLEARED FOR DC (ILEUS, ABDOMINAL PAIN, NAUSEA CONTINUES) PT TO HAVE BARIUM SWALLOW. CM WILL CONTINUE TO FOLLOW FOR ANY CHANGE TO DC PLAN/NEEDS
--- NOTE | 2025-01-02 15:48 | P.PNIM_ITS ---
Subjective Subjective Date of Service: 01/02/25 Interval History: Ielus ,asthma excerebation Review of Systems sob improved abd pain similar no nausea no bm yet Physical Exam 2 Vital Signs: Vital Signs: Last Vital Signs Temp 97.4 F 01/02/25 15:21 Pulse 72 01/02/25 15:21 Resp 16 01/02/25 15:21 BP 138/77 01/02/25 15:21 Pulse Ox 93 01/02/25 15:21 O2 Del Method Room Air 01/02/25 15:21 BMI result Body Mass Index 29.3 Appearance: Alert.? Oriented X3.? cvs: rrr, [id number] , no murmur res: clear to auscultation ,no rhonchii or wheezing abd: no rebound or guarding ,epigastric discomfort, bs present. ext pulses present , no cyanosis . neuro: axo3 , nonfocal. Objective Data Active Medications Acetaminophen (Acetaminophen 325 Mg Tablet) 975 mg PO Q6H PRN PRN Reason: Headache Albuterol/Ipratropium (Albuterol/Iprat 2.5/0.5mg 3 Ml Ampul.Neb) 3 ml INHALE Q4H PRN PRN Reason: Wheezing Last Admin: 01/02/25 04:38 Dose: 3 ml Documented By: ARTHUR Albuterol/Ipratropium (Albuterol/Iprat 2.5/0.5mg 3 Ml Ampul.Neb) 3 ml INHALE RQ4H WHILE AWAKE [facility] Last Admin: 01/02/25 12:02 Dose: Not Given Documented By: BRIELLE Non-Admin Reason: Not In Room Calcium Carbonate (Calcium Carbonate 750 Mg Tab.Chew) 750 mg PO Q4H PRN PRN Reason: Heartburn Enoxaparin Sodium (Enoxaparin Sodium 40 Mg/0.4 Ml Syringe) 40 mg SUBCUT Q24H [facility] Last Admin: 01/01/25 20:30 Dose: 40 mg Documented By: FRANCISCO JAVIER Guaifenesin/Codeine Phosphate (Guaifen/Codeine Sf 200/20/10ml 10 Ml Liquid) 10 ml PO Q4H PRN PRN Reason: Cough Last Admin: 01/02/25 08:05 Dose: 10 ml Documented By: ARANZA Lactated Ringer's (Lr) 1,000 mls @ 80 mls/hr IVCONT .[id number] [facility] Last Infusion: 01/02/25 13:25 Dose: 80 mls/hr Documented By: ARANZA Magnesium Hydroxide (Milk Of Magnesia 30 Ml Oral.Susp) 30 ml PO DAILY PRN PRN Reason: Constipation Melatonin (Melatonin 3 Mg Tablet) 6 mg PO BEDTIME PRN PRN Reason: Insomnia Morphine Sulfate (Morphine Sulfate 4 Mg/Ml Cartridge) 4 mg IVPUSH Q4H PRN; Protocol PRN Reason: Pain, Severe (Pain Scale 7-10) Last Admin: 01/02/25 13:20 Dose: 4 mg Documented By: ARANZA Ondansetron HCl (Ondansetron Hcl 4 Mg/2 Ml Vial) 4 mg IVPUSH Q8H PRN PRN Reason: Nausea and Vomiting Last Admin: 01/02/25 09:55 Dose: 4 mg Documented By: ARANZA Sodium Chloride (0.9 % Sodium Chloride Flush 3 Ml Syringe) 3 ml IVFLUSH QSHIFT [facility] Last Admin: 01/02/25 15:05 Dose: Not Given Documented By: ARANZA Non-Admin Reason: IV Running Trazodone HCl (Trazodone Hcl 50 Mg Tablet) 50 mg PO BEDTIME PRN PRN Reason: Sleep Labs 01/01/25 05:28 01/01/25 05:28 Microbiology Microbiology Results: Microbiology 12/31/24 15:29 Blood Culture - Preliminary Blood - Venous No growth after 24 hours. 12/31/24 15:28 Blood Culture - Preliminary Blood - Venous No growth after 24 hours. Assessment and Plan (1) RSV infection: Status: Acute Assessment and Plan: 49-year-old female with a past medical history significant for multiple abdominal surgeries including gastric bypass x3, cholecystectomy, appendectomy and multiple small bowel obstructions, fibromyalgia, insomnia, mild intermittent asthma, who presented to the ED today due to upper abdominal pain, nausea, vomiting, as well as wheezing and cough. Ileus- WBC 7.5, lactic acid normal, mild tachycardia (secondary to albuterol), no sepsis abdominopelvic CT with possible ileus,UA negative. KUB: No acute findings or evidence of bowel obstruction. Stable postoperative changes. seen by surgery-SBFT shows contrast in the colon going against SBO or ileus. plan: clear liquid diet added, IV fluids: LR 100ml/hr Acute asthma exacerbation secondary to RSV improving - DuoNebs q.4h p.r.n., adjusted solumedrol to 40mg qd - supportive care Full code VTE prophylaxis: Lovenox ongong need : Ielus -need monitering for return of bowel function and renal function/electrolytes monitering Quality Stroke Does the patient have a stroke diagnosis?: No VTE Prior VTE?: No VTE Risk Level:: Medical - moderate - high VTE Device Contraindication: Treatment Not Indicated VTE Drug Contraindication: N/A - Med Ordered
[2025-01-02] MEDS: Enoxaparin Sodium 40 MG/0.4 ML SYRINGE SUBCUT (21:20)
[2025-01-02] MEDS: 0.9 % Sodium Chloride Flush 3 ML SYRINGE IVFLUSH (23:36)
[2025-01-03] VITALS (10 sets, daily range): BP systolic 99–129; BP diastolic 54–80; PULSE 73–98; RESP 16–19; TEMP 36.2–36.6; O2SAT 93–96
[2025-01-03] MEDS: Albuterol/Iprat 2.5/0.5MG 3 ML AMPUL.NEB INHALE ×5 (01:12→20:39)
[2025-01-03] MEDS: Morphine Sulfate 4 MG/ML CARTRIDGE IVPUSH ×5 (02:14→20:41)
[2025-01-03] MEDS: guaiFEN/Codeine SF 200/20/10ML 10 ML LIQUID PO ×5 (02:14→20:38)
[2025-01-03] MEDS: Lactated Ringers 1,000 ML 80 ML IVCONT ×2 (05:18→16:27)
[2025-01-03] MEDS: ondansetron HCL 4 MG/2 ML VIAL IVPUSH ×2 (07:16→18:11)
[2025-01-03] MEDS: Butalb/Acetamin/Caff 50/325/40 TABLET 1 TAB PO (08:14)
[2025-01-03 10:39] LABS: Anion Gap 11 (12-20); Blood Urea Nitrogen 7 mg/dL (9-16); Calcium 8.6 mg/dL (8.4-10.2); Carbon Dioxide 26 mmol/L (22-29); Chloride 108 mmol/L (96-108); Creatinine Clr Calc Pharmacy 103.4; Estimated Glomerular Filt Rate > 60; Glucose Random 120 mg/dL (60-115); Potassium 2.9 mmol/L (3.3-5.1); Sodium 142 mmol/L (135-145)
--- NOTE | 2025-01-03 13:05 | HO.PM.IMPN ---
Subjective Subjective Date of Service: 01/03/25 Interval History: rsv , diarrhae abd pain Review of Systems abd pain seems improving has multple bouts of diarrhae no fevers Physical Exam Vital Signs: Vital Signs: Last Vital Signs Temp 98 F 01/03/25 07:00 Pulse 79 01/03/25 12:00 Resp 18 01/03/25 12:00 BP 129/80 01/03/25 07:00 Pulse Ox 95 01/03/25 07:00 O2 Del Method Room Air 01/03/25 07:00 BMI result Body Mass Index 29.3 Appearance: Alert.? Oriented X3.? cvs: rrr, [id number]. res: clear to auscultation ,no rhonchii or wheezing abd: no rebound or guarding ,epigastric discomfort, bs present. ext pulses present , no cyanosis . neuro: axo3 , nonfocal. Objective Data Active Medications Acetaminophen (Acetaminophen 325 Mg Tablet) 975 mg PO Q6H PRN PRN Reason: Headache Albuterol/Ipratropium (Albuterol/Iprat 2.5/0.5mg 3 Ml Ampul.Neb) 3 ml INHALE Q4H PRN PRN Reason: Wheezing Last Admin: 01/03/25 01:12 Dose: 3 ml Documented By: JAMEE Albuterol/Ipratropium (Albuterol/Iprat 2.5/0.5mg 3 Ml Ampul.Neb) 3 ml INHALE RQ4H WHILE AWAKE [facility] Last Admin: 01/03/25 12:00 Dose: 3 ml Documented By: BRIELLE Calcium Carbonate (Calcium Carbonate 750 Mg Tab.Chew) 750 mg PO Q4H PRN PRN Reason: Heartburn Enoxaparin Sodium (Enoxaparin Sodium 40 Mg/0.4 Ml Syringe) 40 mg SUBCUT Q24H [facility] Last Admin: 01/02/25 21:20 Dose: 40 mg Documented By: JAMEE Guaifenesin/Codeine Phosphate (Guaifen/Codeine Sf 200/20/10ml 10 Ml Liquid) 10 ml PO Q4H PRN PRN Reason: Cough Last Admin: 01/03/25 12:40 Dose: 10 ml Documented By: CARLOS Lactated Ringer's (Lr) 1,000 mls @ 80 mls/hr IVCONT .[id number] [facility] Last Admin: 01/03/25 05:18 Dose: 80 mls/hr Documented By: JAMEE Magnesium Hydroxide (Milk Of Magnesia 30 Ml Oral.Susp) 30 ml PO DAILY PRN PRN Reason: Constipation Melatonin (Melatonin 3 Mg Tablet) 6 mg PO BEDTIME PRN PRN Reason: Insomnia Morphine Sulfate (Morphine Sulfate 4 Mg/Ml Cartridge) 4 mg IVPUSH Q4H PRN; Protocol PRN Reason: Pain, Severe (Pain Scale 7-10) Last Admin: 01/03/25 12:40 Dose: 4 mg Documented By: CARLOS Ondansetron HCl (Ondansetron Hcl 4 Mg/2 Ml Vial) 4 mg IVPUSH Q8H PRN PRN Reason: Nausea and Vomiting Last Admin: 01/03/25 07:16 Dose: 4 mg Documented By: CARLOS Sodium Chloride (0.9 % Sodium Chloride Flush 3 Ml Syringe) 3 ml IVFLUSH QSHIFT [facility] Last Admin: 01/03/25 07:16 Dose: Not Given Documented By: CARLOS Non-Admin Reason: IV Running Trazodone HCl (Trazodone Hcl 50 Mg Tablet) 50 mg PO BEDTIME PRN PRN Reason: Sleep Labs 01/01/25 05:28 01/03/25 09:47 Labs: Laboratory Results - last 24 hr 01/03/25 09:47 Anion Gap 11 L Estim Creat Clear Calc 103.4 Estimated GFR > 60 Random Glucose 120 H Calcium 8.6 Microbiology Microbiology Results: Microbiology 12/31/24 15:29 Blood Culture - Preliminary Blood - Venous No growth after 48 hours. 12/31/24 15:28 Blood Culture - Preliminary Blood - Venous No growth after 48 hours. Assessment and Plan (1) RSV infection: Status: Acute Assessment and Plan: 49-year-old female with a past medical history significant for multiple abdominal surgeries including gastric bypass x3, cholecystectomy, appendectomy and multiple small bowel obstructions, fibromyalgia, insomnia, mild intermittent asthma, who presented to the ED today due to upper abdominal pain, nausea, vomiting, as well as wheezing and cough. Ileus- WBC 7.5, lactic acid normal, mild tachycardia (secondary to albuterol), no sepsis abdominopelvic CT with possible ileus,UA negative. KUB: No acute findings or evidence of bowel obstruction. Stable postoperative changes. seen by surgery-SBFT shows contrast in the colon going against SBO or ileus. plan: trail of full liquid if tolerate switch to regular diet , stool studies -GI panel, cdiff added continue IV fluids. acute hypokalemia-darren sce to diarrhae added po and iv replacements moniter bmp Acute asthma exacerbation secondary to RSV improving - DuoNebs q.4h p.r.n., po prednisone - supportive care Full code VTE prophylaxis: Lovenox ongoing need : Ielus -need monitering for return of bowel function and renal function/electrolytes monitering Quality Stroke Does the patient have a stroke diagnosis?: No VTE Prior VTE?: No VTE Risk Level:: Medical - moderate - high VTE Device Contraindication: Treatment Not Indicated VTE Drug Contraindication: N/A - Med Ordered
[2025-01-03 13:08] LABS: Adenovirus F 40/41 Not Detected (Not Detect.); Astrovirus Not Detected (Not Detect.); Campylobacter Not Detected (Not Detect.); Cryptosporidium Not Detected (Not Detect.); Cyclospora cayetanensis Not Detected (Not Detect.); E. coli EAEC Not Detected (Not Detect.); E. coli EPEC Not Detected (Not Detect.); E. coli ETEC Not Detected (Not Detect.); E. coli STEC Not Detected (Not Detect.); Entamoeba histolytica Not Detected (Not Detect.); Giardia lamblia Not Detected (Not Detect.); Norovirus GI/GII Not Detected (Not Detect.); Plesiomonas shigelloides Not Detected (Not Detect.); Rotavirus A Not Detected (Not Detect.); Salmonella Not Detected (Not Detect.); Sapovirus Not Detected (Not Detect.); Shigella sp./EIEC Not Detected (Not Detect.); Vibrio Not Detected (Not Detect.); Vibrio Cholerae Not Detected (Not Detect.); Yersinia enterocolitica Not Detected (Not Detect.)
[2025-01-03 13:16] LABS: Magnesium 1.6 mg/dL (1.6-2.6)
[2025-01-03] MEDS: Potassium Chloride ER 20 MEQ TAB.ER.PRT 40 MEQ PO (13:27)
[2025-01-03] MEDS: Potassium Chloride/H20 10 MEQ/100 ML PIGGYBACK 100 MEQ IV ×2 (13:28→14:29)
[2025-01-03] MEDS: predniSONE 10 MG TABLET 30 MG PO (13:29)
[2025-01-03] MEDS: Enoxaparin Sodium 40 MG/0.4 ML SYRINGE SUBCUT (20:38)
[2025-01-03] MEDS: traZODone HCL 50 MG TABLET PO (23:04)
[2025-01-04] VITALS (10 sets, daily range): BP systolic 100–130; BP diastolic 46–71; PULSE 72–111; RESP 16–20; TEMP 36.3–36.8; O2SAT 93–98
[2025-01-04] MEDS: guaiFEN/Codeine SF 200/20/10ML 10 ML LIQUID PO ×4 (01:00→15:29)
[2025-01-04] MEDS: Morphine Sulfate 4 MG/ML CARTRIDGE IVPUSH ×5 (01:00→20:58)
[2025-01-04] MEDS: Lactated Ringers 1,000 ML 80 ML IVCONT ×2 (04:42→17:31)
[2025-01-04] MEDS: Albuterol/Iprat 2.5/0.5MG 3 ML AMPUL.NEB INHALE ×4 (06:10→20:34)
[2025-01-04 06:40] LABS: Anion Gap 11 (12-20); Blood Urea Nitrogen 5 mg/dL (9-16); Calcium 8.8 mg/dL (8.4-10.2); Carbon Dioxide 28 mmol/L (22-29); Chloride 108 mmol/L (96-108); Creatinine Clr Calc Pharmacy 110.8; Estimated Glomerular Filt Rate > 60; Glucose Random 81 mg/dL (60-115); Potassium 3.7 mmol/L (3.3-5.1); Sodium 143 mmol/L (135-145)
--- NOTE | 2025-01-04 08:18 | P.DS_ITS ---
DS: Providers Provider Date of Service: 01/04/25 Date of admission: 12/31/24 20:08 Date of discharge: 01/04/25 Primary care physician: None Physician Consults: 01/01/25 08:02 Consult to General Surgery Routine Consulting Provider: [facility] General Surgeons Reason for consultation: Ielus ,hx of multiple surgeries in the past Has provider been notified: No Attending physician on discharge: Josh Funez Discharging clinician: Josh Funez DS: Diagnosis Discharge Diagnosis (1) RSV infection: Status: Acute DS: Summary Hospital Course Hospital Course: HPI: 49-year-old female with a past medical history significant for multiple abdominal surgeries including gastric bypass x3, cholecystectomy, appendectomy and multiple small bowel obstructions, fibromyalgia, insomnia, mild intermittent asthma, who presented to the ED today due to upper abdominal pain, nausea, vomiting, as well as wheezing and cough. She reports that her symptoms started 3 days ago initially with abdominal pain, nausea and vomiting. She reports chronic constipation usually goes about 3 days without a bowel movement which she has done again but has been unable to pass any gas and has severe abdominal discomfort. She also developed wheezing, cough and runny nose starting the following day. She has increased nausea and abdominal pain with eating. She measured a temperature at home of 101. She reports that she has been using her albuterol frequently for her cough and wheezing. She rates her epigastric pain at 10/10 as well as her nausea as severe. She was recently treated for an asthma exacerbation with albuterol and prednisone. Hospital course: 49-year-old female with a past medical history significant for multiple abdominal surgeries including gastric bypass x3, cholecystectomy, appendectomy and multiple small bowel obstructions, fibromyalgia, insomnia, mild intermittent asthma, who presented to the ED today due to upper abdominal pain, nausea, vomiting, as well as wheezing and cough: admitted for asthma excerebation in setting of rsv-started on steriods ,nebs ,cough meds , in addition given ivf ,bowel rest and seen by surgery - ordered SBFT which shows contrast in the colon going against SBO or ileus.subsequently patient started having bm's , diet advanced which patient is tolerating well,stool GI panel checked(because of diarrhae)-negative.patient seems to be improved with above supportive care. encouraged for hydration and po intake and prn luxative for constipation. patient requested nebuliser -verbal order for pharmacy placed. acute hypokalemia-likley sce to diarrhae -repleted and resolved .po intake better . patient will be going home with prednisone 20 mg x3 days . colace and miralex prn. plan: check bmp outpatient in 1 week. patient requested nebuliser -verbal order for pharmacy placed. patient will be going home with prednisone 20 mg x3 days . colace and miralex prn Above management discussed with the patient detail length-she understand and in agreement with the above plan, time spent 40 minute. Time Attestation Total time managing care of this patient today: 40 mintues. Discharge Coordination Time (in mins): 40 min Quality: Safe Use of Opioids Does Pt have an Active Cancer Diagnosis on the Problem List?: No Quality: Stroke Does the patient have a stroke diagnosis?: No Physical Exam Vital Signs: Vital Signs: Last Vital Signs Temp 98 F 01/04/25 07:02 Pulse 95 01/04/25 07:02 Resp 16 01/04/25 07:02 BP 127/66 01/04/25 07:02 Pulse Ox 95 01/04/25 07:02 O2 Del Method Room Air 01/04/25 07:02 BMI result Body Mass Index 29.3 Appearance: Alert.? Oriented X3.? cvs: rrr, [id number]. res: clear to auscultation ,no rhonchii or wheezing abd: no rebound or guarding ,nt, bs present. ext pulses present , no cyanosis . neuro: axo3 , nonfocal. DS: Data Data Completed and Pending Labs on day of discharge: Laboratory Results - last 24 hr 01/03/25 01/03/25 01/04/25 09:47 10:42 05:48 Sodium 142 143 Potassium 2.9 L* D 3.7 D Chloride 108 108 Carbon Dioxide 26 28 Anion Gap 11 L 11 L BUN 7 L 5 L Creatinine 0.60 0.56 Estim Creat Clear Calc 103.4 110.8 Estimated GFR > 60 > 60 Random Glucose 120 H 81 Calcium 8.6 8.8 Magnesium 1.6 Stl C. cayetanensis PCR Not Detected Stool Rotavirus A PCR Not Detected Stl Adenov F 40/41 PCR Not Detected Stool Astrovirus (PCR) Not Detected Stool Campylobacter PCR Not Detected Stool Cryptosporidium PCR Not Detected Stl Sh Tox Pr E STEC PCR Not Detected Stool E coli O157 PCR Not applicable Stl Enterotoxigenic E PCR Not Detected Stool EPEC (PCR) Not Detected Stool EAEC (PCR) Not Detected Stl E. histolytica PCR Not Detected Stool Giardia Lamblia PCR Not Detected Stl P. shigelloides PCR Not Detected Stool Salmonella PCR Not Detected Stool Sapovirus (PCR) Not Detected Stl Shigella/EIEC PCR Not Detected St Y.enterocolitica PCR Not Detected Stool Vibrio (PCR) Not Detected Stl Vibrio cholerae PCR Not Detected Stl Norovirus GI/GII PCR Not Detected C. difficile Tox B Gene Cancelled Preliminary micro results at discharge 12/31/24 15:29 Blood Culture - Preliminary Blood - Venous No growth after 48 hours. 12/31/24 15:28 Blood Culture - Preliminary Blood - Venous No growth after 48 hours. Imaging Chest x-ray: Radiologist's impression: ITS Impressions KUB X-Ray 01/01/25 09:00 IMPRESSION: 1. No acute findings or evidence of bowel obstruction. 2. Stable postoperative changes. Electronically signed by: Griffin Leahy MD 01/01/2025 08:49 AM EST RP Upper GI and Small Bowel X-Ray 01/02/25 10:10 IMPRESSION: 1. Minimally dilated left sided small bowel loops, however, no strictures or masses are present. 2. Contrast is seen in colon after 30 minutes. There was significant dilution of contrast, nonspecific. No small bowel obstruction is present. 3. Status post cholecystectomy and gastric bypass. This procedure was performed by Navarro Martin PA-C, and supervised by Dr. Leahy Electronically signed by: Griffin Leahy MD 01/02/2025 03:24 PM EST RP Chest X-Ray 01/03/25 08:50 IMPRESSION: Patchy increased opacity left base suggestive of subtle left base pneumonia. Electronically signed by: Griffin Leahy MD 01/03/2025 09:42 AM EST RP Discharge Plan Discharge Anticipated Discharge Date/Time: 01/04/25 08:08 Patient Disposition: Home, Self-Care Discharge Diagnosis: asthma excerebation ,Ielus Referrals: Physician,None [Primary Care Provider] - 1 Week Discharge Medications: New prednisone 10 mg Tablet 20 mg PO DAILY Qty: 6 0RF docusate sodium [Colace] 100 mg capsule 100 mg PO DAILY PRN (Reason: constipation) Qty: 30 0RF polyethylene glycol 3350 [Miralax] 17 gram/dose powder 17 g PO DAILY PRN (Reason: constipation) Qty: 119 0RF lidocaine [Lidocaine Pain Relief] 4 % Adhesive Patch,Medicated 1 patch transdermal DAILY Qty: 5 0RF Protocol: Apply to: Apply to: Affected area codeine-guaifenesin 10-100 mg/5 mL Liquid 10 ml PO Q4H PRN (Reason: Cough) Qty: 100 0RF loratadine 10 mg Tablet 10 mg PO DAILY Qty: 7 0RF Continued gabapentin 600 mg Tablet 300 mg PO TID PRN (Reason: Pain) melatonin 5 mg tablet 5 mg PO BEDTIME PRN (Reason: Sleep) methocarbamol 750 mg tablet 750 mg PO Q8H PRN (Reason: Muscle Spasm) trazodone 50 mg tablet 50 mg PO BEDTIME PRN (Reason: Sleep) albuterol sulfate 90 mcg/actuation HFA aerosol inhaler 2 puff inhalation Q6H PRN (Reason: shortness of breath or wheezing) Qty: 8.5 0RF Discharge Orders: Discharge Order (Routine); Ordered 01/07/25 Ordered By: Josh Funez Diet: Advance to usual diet Activity on Discharge: As tolerated Stand Alone Forms: Patient Portal Discharge page, Work/School Release Print Language: Thai Care Plan Goals: 49-year-old female with a past medical history significant for multiple abdominal surgeries including gastric bypass x3, cholecystectomy, appendectomy and multiple small bowel obstructions, fibromyalgia, insomnia, mild intermittent asthma, who presented to the ED today due to upper abdominal pain, nausea, vomiting, as well as wheezing and cough: admitted for asthma excerebation in setting of rsv-started on steriods ,nebs ,cough meds , in addition given ivf ,bowel rest and seen by surgery - ordered SBFT which shows contrast in the colon going against SBO or ileus.subsequently patient started having bm's , diet advanced which patient is tolerating well,stool GI panel checked(because of diarrhae)-negative.patient seems to be improved with above supportive care. encouraged for hydration and po intake and prn luxative for constipation. patient requested nebuliser -verbal order for pharmacy placed. acute hypokalemia-likley sce to diarrhae -repleted and resolved .po intake better . patient will be going home with prednisone 20 mg x3 days . colace and miralex prn Health Concerns: as above. Plan of Treatment: check bmp outpatient in 1 week. patient requested nebuliser -verbal order for pharmacy placed. patient will be going home with prednisone 20 mg x3 days . colace and miralex prn Assessment: as above.
[2025-01-04] MEDS: predniSONE 10 MG TABLET 30 MG PO (08:54)
[2025-01-04] MEDS: ondansetron HCL 4 MG/2 ML VIAL IVPUSH (09:55)
--- NOTE | 2025-01-04 12:07 | MHC.CM.PN ---
Patient requested to speak to CM re: PFML paperwork, as she does not have a PCP. PCP list provided. Patient will start making phone calls to schedule new patient appt prior to dc. She will continue to call re: cancellations for sooner appt. CM will continue to follow.
--- NOTE | 2025-01-04 13:35 | HO.PM.IMPN ---
Subjective Subjective Date of Service: 01/04/25 Interval History: rsv , abd pain Review of Systems diarrhae improving has aggressive cough abd pain somewhat improving generalised weak Physical Exam Vital Signs: Vital Signs: Last Vital Signs Temp 98 F 01/04/25 07:02 Pulse 72 01/04/25 11:48 Resp 18 01/04/25 11:48 BP 127/66 01/04/25 07:02 Pulse Ox 95 01/04/25 07:02 O2 Del Method Room Air 01/04/25 07:02 BMI result Body Mass Index 29.3 Appearance: Alert.? Oriented X3.? cvs: rrr, [id number]. res: clear to auscultation ,no rhonchii or wheezing abd: no rebound or guarding ,epigastric discomfort, bs present. ext pulses present , no cyanosis . neuro: axo3 , nonfocal. Objective Data Active Medications Acetaminophen (Acetaminophen 325 Mg Tablet) 975 mg PO Q6H PRN PRN Reason: Headache Albuterol/Ipratropium (Albuterol/Iprat 2.5/0.5mg 3 Ml Ampul.Neb) 3 ml INHALE Q4H PRN PRN Reason: Wheezing Last Admin: 01/03/25 01:12 Dose: 3 ml Documented By: JAMEE Albuterol/Ipratropium (Albuterol/Iprat 2.5/0.5mg 3 Ml Ampul.Neb) 3 ml INHALE RQ4H WHILE AWAKE [facility] Last Admin: 01/04/25 11:47 Dose: 3 ml Documented By: KARRI Calcium Carbonate (Calcium Carbonate 750 Mg Tab.Chew) 750 mg PO Q4H PRN PRN Reason: Heartburn Enoxaparin Sodium (Enoxaparin Sodium 40 Mg/0.4 Ml Syringe) 40 mg SUBCUT Q24H [facility] Last Admin: 01/03/25 20:38 Dose: 40 mg Documented By: DELMAR Guaifenesin/Codeine Phosphate (Guaifen/Codeine Sf 200/20/10ml 10 Ml Liquid) 10 ml PO Q4H PRN PRN Reason: Cough Last Admin: 01/04/25 09:54 Dose: 10 ml Documented By: CARLOS Lactated Ringer's (Lr) 1,000 mls @ 80 mls/hr IVCONT .[id number] [facility] Last Admin: 01/04/25 04:42 Dose: 80 mls/hr Documented By: DELMAR Magnesium Hydroxide (Milk Of Magnesia 30 Ml Oral.Susp) 30 ml PO DAILY PRN PRN Reason: Constipation Melatonin (Melatonin 3 Mg Tablet) 6 mg PO BEDTIME PRN PRN Reason: Insomnia Morphine Sulfate (Morphine Sulfate 4 Mg/Ml Cartridge) 4 mg IVPUSH Q4H PRN; Protocol PRN Reason: Pain, Severe (Pain Scale 7-10) Last Admin: 01/04/25 09:54 Dose: 4 mg Documented By: CARLOS Ondansetron HCl (Ondansetron Hcl 4 Mg/2 Ml Vial) 4 mg IVPUSH Q8H PRN PRN Reason: Nausea and Vomiting Last Admin: 01/04/25 09:55 Dose: 4 mg Documented By: CARLOS Prednisone (Prednisone 10 Mg Tablet) 30 mg PO DAILY [facility] Last Admin: 01/04/25 08:54 Dose: 30 mg Documented By: CARLOS Sodium Chloride (0.9 % Sodium Chloride Flush 3 Ml Syringe) 3 ml IVFLUSH QSHIFT [facility] Last Admin: 01/04/25 07:45 Dose: Not Given Documented By: CARLOS Non-Admin Reason: IV Running Trazodone HCl (Trazodone Hcl 50 Mg Tablet) 50 mg PO BEDTIME PRN PRN Reason: Sleep Last Admin: 01/03/25 23:04 Dose: 50 mg Documented By: DELMAR Labs 01/01/25 05:28 01/04/25 05:48 Labs: Laboratory Results - last 24 hr 01/03/25 01/04/25 10:42 05:48 Anion Gap 11 L Estim Creat Clear Calc 110.8 Estimated GFR > 60 Random Glucose 81 Calcium 8.8 C. difficile Tox B Gene Cancelled Assessment and Plan (1) RSV infection: Status: Acute (2) Acute asthma exacerbation: Status: Acute Assessment and Plan: 49-year-old female with a past medical history significant for multiple abdominal surgeries including gastric bypass x3, cholecystectomy, appendectomy and multiple small bowel obstructions, fibromyalgia, insomnia, mild intermittent asthma, who presented to the ED today due to upper abdominal pain, nausea, vomiting, as well as wheezing and cough. Ileus- WBC 7.5, lactic acid normal, mild tachycardia (secondary to albuterol), no sepsis abdominopelvic CT with possible ileus,UA negative. KUB: No acute findings or evidence of bowel obstruction. Stable postoperative changes. seen by surgery-SBFT shows contrast in the colon going against SBO or ileus. plan: gip panel negative has abd pain ,she does not feel improving yet continue IV fluids. acute hypokalemia-darren sce to diarrhae added po and iv replacements moniter bmp Acute asthma exacerbation secondary to RSV improving - DuoNebs q.4h p.r.n., po prednisone , loratidine ,cough syrup. - supportive care Full code VTE prophylaxis: Lovenox ongoing need to stay :Ielus -has abd pain ,somewhat imporving but not optimal yet, po intake is also not optimal yet. Quality Stroke Does the patient have a stroke diagnosis?: No VTE Prior VTE?: No VTE Risk Level:: Medical - moderate - high VTE Device Contraindication: Treatment Not Indicated VTE Drug Contraindication: N/A - Med Ordered
[2025-01-04] MEDS: Benzonatate 100 MG CAPSULE PO ×2 (14:32→20:58)
[2025-01-04] MEDS: Loratadine 10 MG TABLET PO (14:33)
[2025-01-04] MEDS: Dicyclomine HCl 10 MG CAPSULE PO (17:31)
[2025-01-04] MEDS: Enoxaparin Sodium 40 MG/0.4 ML SYRINGE SUBCUT (20:57)
[2025-01-05] VITALS (9 sets, daily range): BP systolic 106–126; BP diastolic 63–80; PULSE 80–109; RESP 16–20; TEMP 36.3–36.9; O2SAT 92–97
[2025-01-05] MEDS: Albuterol/Iprat 2.5/0.5MG 3 ML AMPUL.NEB INHALE ×5 (01:02→20:42)
[2025-01-05] MEDS: guaiFEN/Codeine SF 200/20/10ML 10 ML LIQUID PO ×3 (01:35→23:58)
[2025-01-05] MEDS: ondansetron HCL 4 MG/2 ML VIAL IVPUSH ×3 (01:35→20:45)
[2025-01-05] MEDS: Morphine Sulfate 4 MG/ML CARTRIDGE IVPUSH ×3 (01:36→09:50)
[2025-01-05] MEDS: traZODone HCL 50 MG TABLET PO (03:43)
[2025-01-05] MEDS: Lactated Ringers 1,000 ML 80 ML IVCONT ×2 (03:45→15:30)
[2025-01-05] MEDS: Loratadine 10 MG TABLET PO (08:22)
[2025-01-05] MEDS: predniSONE 10 MG TABLET 30 MG PO (08:22)
[2025-01-05] MEDS: Benzonatate 100 MG CAPSULE PO ×3 (08:22→20:45)
[2025-01-05] MEDS: Acetaminophen 325 MG TABLET 975 MG PO ×3 (11:33→23:58)
[2025-01-05] MEDS: traZODone HCL 25 MG HALFTAB PO ×3 (11:33→23:58)
[2025-01-05] MEDS: Lidocaine 4 % Patch ADH..PATCH 1 PATCH TRANSDERMA (11:34)
--- NOTE | 2025-01-05 16:04 | P.PNIM_ITS ---
Subjective Subjective Date of Service: 01/05/25 Interval History: sob abd pain Review of Systems seems improving but feels yet not improving tolerating diet Physical Exam 2 Vital Signs: Vital Signs: Last Vital Signs Temp 98.5 F 01/05/25 15:34 Pulse 109 H 01/05/25 15:34 Resp 18 01/05/25 15:34 BP 106/63 01/05/25 15:34 Pulse Ox 94 01/05/25 15:34 O2 Del Method Room Air 01/05/25 15:34 BMI result Body Mass Index 29.3 Appearance: Alert.? Oriented X3.? cvs: rrr, [id number]. res: clear to auscultation ,no rhonchii or wheezing abd: no rebound or guarding ,epigastric discomfort, bs present. ext pulses present , no cyanosis . neuro: axo3 , nonfocal. Objective Data Active Medications Acetaminophen (Acetaminophen 325 Mg Tablet) 975 mg PO Q6H [facility] Last Admin: 01/05/25 11:33 Dose: 975 mg Documented By: CANDY Albuterol/Ipratropium (Albuterol/Iprat 2.5/0.5mg 3 Ml Ampul.Neb) 3 ml INHALE Q4H PRN PRN Reason: Wheezing Last Admin: 01/05/25 01:02 Dose: 3 ml Documented By: BEENA Albuterol/Ipratropium (Albuterol/Iprat 2.5/0.5mg 3 Ml Ampul.Neb) 3 ml INHALE RQ4H WHILE AWAKE [facility] Last Admin: 01/05/25 15:04 Dose: 3 ml Documented By: BILL Benzonatate (Benzonatate 100 Mg Capsule) 100 mg PO TID [facility] Last Admin: 01/05/25 15:29 Dose: 100 mg Documented By: CANDY Calcium Carbonate (Calcium Carbonate 750 Mg Tab.Chew) 750 mg PO Q4H PRN PRN Reason: Heartburn Capsaicin (Capsaicin 0.025% Cream 60 Gm Tube) 1 appl TOPICAL QID PRN; Protocol PRN Reason: Pain, Mild 1-3,fever,headache Enoxaparin Sodium (Enoxaparin Sodium 40 Mg/0.4 Ml Syringe) 40 mg SUBCUT Q24H [facility] Last Admin: 01/04/25 20:57 Dose: 40 mg Documented By: MARLENI Guaifenesin/Codeine Phosphate (Guaifen/Codeine Sf 200/20/10ml 10 Ml Liquid) 10 ml PO Q4H PRN PRN Reason: Cough Last Admin: 01/05/25 01:35 Dose: 10 ml Documented By: MARLENI Lactated Ringer's (Lr) 1,000 mls @ 80 mls/hr IVCONT .[id number] [facility] Last Admin: 01/05/25 15:30 Dose: 80 mls/hr Documented By: CANDY Lidocaine (Lidocaine 4 % Patch Adh..Patch) 1 patch TRANSDERMA DAILY [facility]; Protocol Last Admin: 01/05/25 11:34 Dose: 1 patch Documented By: CANDY Loratadine (Loratadine 10 Mg Tablet) 10 mg PO DAILY [facility] Last Admin: 01/05/25 08:22 Dose: 10 mg Documented By: CANDY Magnesium Hydroxide (Milk Of Magnesia 30 Ml Oral.Susp) 30 ml PO DAILY PRN PRN Reason: Constipation Melatonin (Melatonin 3 Mg Tablet) 6 mg PO BEDTIME PRN PRN Reason: Insomnia Ondansetron HCl (Ondansetron Hcl 4 Mg/2 Ml Vial) 4 mg IVPUSH Q8H PRN PRN Reason: Nausea and Vomiting Last Admin: 01/05/25 09:50 Dose: 4 mg Documented By: CANDY Prednisone (Prednisone 10 Mg Tablet) 30 mg PO DAILY [facility] Last Admin: 01/05/25 08:22 Dose: 30 mg Documented By: CANDY Sodium Chloride (0.9 % Sodium Chloride Flush 3 Ml Syringe) 3 ml IVFLUSH QSHIFT [facility] Last Admin: 01/05/25 15:31 Dose: Not Given Documented By: CANDY Non-Admin Reason: IV Running Trazodone HCl (Trazodone Hcl 50 Mg Tablet) 50 mg PO BEDTIME PRN PRN Reason: Sleep Last Admin: 01/05/25 03:43 Dose: 50 mg Documented By: MARLENI Trazodone HCl (Trazodone Hcl 25 Mg Halftab) 25 mg PO Q6H [facility] Last Admin: 01/05/25 11:33 Dose: 25 mg Documented By: CANDY Labs 01/01/25 05:28 01/04/25 05:48 Assessment and Plan (1) Acute asthma exacerbation: Status: Acute Assessment and Plan: 49-year-old female with a past medical history significant for multiple abdominal surgeries including gastric bypass x3, cholecystectomy, appendectomy and multiple small bowel obstructions, fibromyalgia, insomnia, mild intermittent asthma, who presented to the ED today due to upper abdominal pain, nausea, vomiting, as well as wheezing and cough. Ileus- WBC 7.5, lactic acid normal, mild tachycardia (secondary to albuterol), no sepsis abdominopelvic CT with possible ileus,UA negative. KUB: No acute findings or evidence of bowel obstruction. Stable postoperative changes. seen by surgery-SBFT shows contrast in the colon going against SBO or ileus. improved ,has some abd discomfort but tolerating diet. encouraged to walk ,oob . acute hypokalemia-andresley sce to diarrhae repleted and resolved. Acute asthma exacerbation secondary to RSV improving - DuoNebs q.4h p.r.n., po prednisone - supportive care Full code VTE prophylaxis: Lovenox ongoing need : Ielus and asthma execerebation/rsv-feels like her respiratory status not optimal yet. Quality Stroke Does the patient have a stroke diagnosis?: No VTE Prior VTE?: No VTE Risk Level:: Medical - moderate - high VTE Device Contraindication: Treatment Not Indicated VTE Drug Contraindication: N/A - Med Ordered
[2025-01-05] MEDS: Capsaicin 0.025% Cream 60 GM TUBE 1 APPL TOPICAL (17:48)
[2025-01-05] MEDS: Enoxaparin Sodium 40 MG/0.4 ML SYRINGE SUBCUT (20:45)
[2025-01-05] MEDS: 0.9 % Sodium Chloride Flush 3 ML SYRINGE IVFLUSH (20:46)
[2025-01-06] VITALS (8 sets, daily range): BP systolic 101–117; BP diastolic 57–69; PULSE 84–117; RESP 16–20; TEMP 36.1–37.2; O2SAT 88–95
[2025-01-06] MEDS: traZODone HCL 25 MG HALFTAB PO ×4 (06:02→23:05)
[2025-01-06] MEDS: Acetaminophen 325 MG TABLET 975 MG PO ×4 (06:02→23:05)
[2025-01-06] MEDS: guaiFEN/Codeine SF 200/20/10ML 10 ML LIQUID PO ×4 (06:07→23:05)
[2025-01-06] MEDS: ondansetron HCL 4 MG/2 ML VIAL IVPUSH ×3 (06:07→23:06)
[2025-01-06] MEDS: Albuterol/Iprat 2.5/0.5MG 3 ML AMPUL.NEB INHALE ×5 (06:26→22:44)
[2025-01-06] MEDS: predniSONE 10 MG TABLET 30 MG PO (08:31)
[2025-01-06] MEDS: Benzonatate 100 MG CAPSULE PO ×3 (08:31→20:48)
[2025-01-06] MEDS: Lidocaine 4 % Patch ADH..PATCH 1 PATCH TRANSDERMA (08:32)
[2025-01-06] MEDS: 0.9 % Sodium Chloride Flush 3 ML SYRINGE IVFLUSH ×3 (08:32→20:48)
[2025-01-06] MEDS: Loratadine 10 MG TABLET PO (08:32)
--- NOTE | 2025-01-06 13:11 | HO.PM.IMPN ---
Subjective Subjective Date of Service: 01/06/25 Interval History: generalised weak rsv abd pain Review of Systems abd pain improved has significant cough Physical Exam Vital Signs: Vital Signs: Last Vital Signs Temp 98.9 F 01/06/25 07:37 Pulse 117 H 01/06/25 12:04 Resp 16 01/06/25 12:04 BP 101/57 L 01/06/25 07:37 Pulse Ox 94 01/06/25 07:37 O2 Del Method Room Air 01/06/25 07:37 BMI result Body Mass Index 29.3 Appearance: Alert.? Oriented X3.? cvs: rrr, [id number]. res: clear to auscultation ,no rhonchii or wheezing abd: no rebound or guarding ,nt, bs present. ext pulses present , no cyanosis . neuro: axo3 , nonfocal. Objective Data Active Medications Acetaminophen (Acetaminophen 325 Mg Tablet) 975 mg PO Q6H [facility] Last Admin: 01/06/25 11:24 Dose: 975 mg Documented By: CANDY Albuterol/Ipratropium (Albuterol/Iprat 2.5/0.5mg 3 Ml Ampul.Neb) 3 ml INHALE Q4H PRN PRN Reason: Wheezing Last Admin: 01/05/25 01:02 Dose: 3 ml Documented By: BEENA Albuterol/Ipratropium (Albuterol/Iprat 2.5/0.5mg 3 Ml Ampul.Neb) 3 ml INHALE RQ4H WHILE AWAKE [facility] Last Admin: 01/06/25 12:04 Dose: 3 ml Documented By: MANOLO Benzonatate (Benzonatate 100 Mg Capsule) 100 mg PO TID [facility] Last Admin: 01/06/25 08:31 Dose: 100 mg Documented By: CANDY Calcium Carbonate (Calcium Carbonate 750 Mg Tab.Chew) 750 mg PO Q4H PRN PRN Reason: Heartburn Capsaicin (Capsaicin 0.025% Cream 60 Gm Tube) 1 appl TOPICAL QID PRN; Protocol PRN Reason: Pain, Mild 1-3,fever,headache Last Admin: 01/05/25 17:48 Dose: 1 appl Documented By: CANDY Enoxaparin Sodium (Enoxaparin Sodium 40 Mg/0.4 Ml Syringe) 40 mg SUBCUT Q24H [facility] Last Admin: 01/05/25 20:45 Dose: 40 mg Documented By: MARLENI Guaifenesin (Guaifenesin 200 Mg/10 Ml 10 Ml Liquid) 10 ml PO Q4H PRN PRN Reason: Cough Guaifenesin/Codeine Phosphate (Guaifen/Codeine Sf 200/20/10ml 10 Ml Liquid) 10 ml PO Q4H PRN PRN Reason: Cough Last Admin: 01/06/25 11:24 Dose: 10 ml Documented By: CANDY Lidocaine (Lidocaine 4 % Patch Adh..Patch) 1 patch TRANSDERMA DAILY [facility]; Protocol Last Admin: 01/06/25 08:32 Dose: 1 patch Documented By: CANDY Loratadine (Loratadine 10 Mg Tablet) 10 mg PO DAILY [facility] Last Admin: 01/06/25 08:32 Dose: 10 mg Documented By: CANDY Magnesium Hydroxide (Milk Of Magnesia 30 Ml Oral.Susp) 30 ml PO DAILY PRN PRN Reason: Constipation Melatonin (Melatonin 3 Mg Tablet) 6 mg PO BEDTIME PRN PRN Reason: Insomnia Ondansetron HCl (Ondansetron Hcl 4 Mg/2 Ml Vial) 4 mg IVPUSH Q8H PRN PRN Reason: Nausea and Vomiting Last Admin: 01/06/25 06:07 Dose: 4 mg Documented By: MARLENI Prednisone (Prednisone 10 Mg Tablet) 30 mg PO DAILY [facility] Last Admin: 01/06/25 08:31 Dose: 30 mg Documented By: CANDY Sodium Chloride (0.9 % Sodium Chloride Flush 3 Ml Syringe) [facility] Last Admin: 01/06/25 08:32 Dose: 3 ml Documented By: CANDY Trazodone HCl (Trazodone Hcl 50 Mg Tablet) 50 mg PO BEDTIME PRN PRN Reason: Sleep Last Admin: 01/05/25 03:43 Dose: 50 mg Documented By: MARLENI Trazodone HCl (Trazodone Hcl 25 Mg Halftab) 25 mg PO Q6H [facility] Last Admin: 01/06/25 11:24 Dose: 25 mg Documented By: CANDY Labs 01/01/25 05:28 01/04/25 05:48 Microbiology Microbiology Results: Microbiology 12/31/24 15:29 Blood Culture - Final Blood - Venous No growth after 5 days. 12/31/24 15:28 Blood Culture - Final Blood - Venous No growth after 5 days. Assessment and Plan (1) RSV infection: Status: Acute (2) Acute asthma exacerbation: Status: Acute Assessment and Plan: 49-year-old female with a past medical history significant for multiple abdominal surgeries including gastric bypass x3, cholecystectomy, appendectomy and multiple small bowel obstructions, fibromyalgia, insomnia, mild intermittent asthma, who presented to the ED today due to upper abdominal pain, nausea, vomiting, as well as wheezing and cough. Ileus- WBC 7.5, lactic acid normal, mild tachycardia (secondary to albuterol), no sepsis abdominopelvic CT with possible ileus,UA negative. KUB: No acute findings or evidence of bowel obstruction. Stable postoperative changes. seen by surgery-SBFT shows contrast in the colon going against SBO or ileus. improved ,has some abd discomfort but tolerating diet. encouraged to walk ,oob . acute hypokalemia-andresley sce to diarrhae repleted and resolved. Acute asthma exacerbation secondary to RSV improving - DuoNebs q.4h p.r.n., po prednisone - supportive care Full code VTE prophylaxis: Lovenox ongoing need : Ielus and asthma execerebation/rsv-feels like her respiratory status not optimal yet. Quality Stroke Does the patient have a stroke diagnosis?: No VTE Prior VTE?: No VTE Risk Level:: Medical - moderate - high VTE Device Contraindication: Treatment Not Indicated VTE Drug Contraindication: N/A - Med Ordered
[2025-01-06] MEDS: Enoxaparin Sodium 40 MG/0.4 ML SYRINGE SUBCUT (20:48)
[2025-01-07 05:30] VITALS: PULSE 94; RESP 18; O2SAT 96
[2025-01-07] MEDS: Albuterol/Iprat 2.5/0.5MG 3 ML AMPUL.NEB INHALE ×4 (05:30→15:47)
[2025-01-07] MEDS: Acetaminophen 325 MG TABLET 975 MG PO ×2 (05:52→12:08)
[2025-01-07] MEDS: guaiFEN/Codeine SF 200/20/10ML 10 ML LIQUID PO ×2 (05:52→12:08)
[2025-01-07] MEDS: traZODone HCL 25 MG HALFTAB PO ×2 (05:52→12:08)
[2025-01-07 08:00] VITALS: BP 113/72; PULSE 97; RESP 18; TEMP 36.5; O2SAT 94
[2025-01-07 08:05] VITALS: PULSE 104; RESP 18; O2SAT 98
[2025-01-07] MEDS: Benzonatate 100 MG CAPSULE PO ×2 (08:40→14:40)
[2025-01-07] MEDS: Lidocaine 4 % Patch ADH..PATCH 1 PATCH TRANSDERMA (08:40)
[2025-01-07] MEDS: predniSONE 10 MG TABLET 30 MG PO (08:41)
[2025-01-07] MEDS: 0.9 % Sodium Chloride Flush 3 ML SYRINGE IVFLUSH (08:41)
[2025-01-07] MEDS: Loratadine 10 MG TABLET PO (08:41)
[2025-01-07] MEDS: ondansetron HCL 4 MG/2 ML VIAL IVPUSH (08:50)
[2025-01-07 11:23] VITALS: PULSE 112; RESP 20; O2SAT 95
--- NOTE | 2025-01-07 13:21 | MHC.CM.PN ---
Per MD patient medically cleared for dc home self care. Private transport.
[2025-01-07 14:26] VITALS: PULSE 112
[2025-01-07 15:51] VITALS: PULSE 102; RESP 18; O2SAT 98
== END 2025-01-07 16:07 | disposition home or self-care (01) | DRG 141 ==
LOC: HO.ED 19:17 → HO.EDOVER 20:27 → HO.S3 20:48
PROVIDERS: Physician Assistant Medical; Admitting Provider Student in an Organized Health Care Education/Training Program; Emergency Provider Emergency Medicine; Visit Provider Internal Medicine
DX: J45.21 Mild intermittent asthma with (acute) exacerbation (principal); K56.7 Ileus, unspecified; B97.4 Respiratory syncytial virus as the cause of diseases classified elsewhere; M79.7 Fibromyalgia; K59.00 Constipation, unspecified; E87.6 Hypokalemia; Z20.822 Contact with and (suspected) exposure to COVID-19; Z98.84 Bariatric surgery status; Z79.51 Long term (current) use of inhaled steroids; Z79.899 Other long term (current) drug therapy
CPT/HCPCS: 0241U; 36415; 71045; 71046; 74018; 74177; 74250; 80048; 80076; 81003; 81025; 83605; 83690; 83735; 84484; 84702; 85025; 87040; 87493; 87507; 93005; 94640; 97162; 97530; 99285; J1171; J1650; J2270; J2405; J2765; J2919; J3480; J7120; Q9967

== ENCOUNTER → 2024-12-31 14:46 | Outpatient (BNV) | payer OTHER, SELFPAY | PROVIDERS: Admitting Provider Student in an Organized Health Care Education/Training Program; Emergency Provider Emergency Medicine; Visit Provider Internal Medicine | DX: R07.9 Chest pain, unspecified (principal) | CPT/HCPCS: 93010 ==

== ENCOUNTER → 2024-12-31 14:46 | Outpatient (BNV) | payer OTHER, SELFPAY | PROVIDERS: Emergency Provider Emergency Medicine; Visit Provider Radiology Diagnostic Radiology | DX: K57.30 Diverticulosis of large intestine without perforation or abscess without bleeding (principal); R07.9 Chest pain, unspecified; K56.41 Fecal impaction | CPT/HCPCS: 71046; 74018; 74177 ==

== ENCOUNTER 2024-12-31 20:08 | Outpatient (BNV) | payer OTHER, SELFPAY | END 2025-01-03 08:50 | PROVIDERS: Admitting Provider Student in an Organized Health Care Education/Training Program; Emergency Provider Emergency Medicine; Visit Provider Radiology Diagnostic Radiology | DX: R06.02 Shortness of breath (principal); R05.9 Cough, unspecified | CPT/HCPCS: 71045 ==

== ENCOUNTER 2024-12-31 20:08 | Outpatient (BNV) | payer OTHER, SELFPAY | END 2025-01-02 10:10 | PROVIDERS: Admitting Provider Student in an Organized Health Care Education/Training Program; Emergency Provider Emergency Medicine; Visit Provider Physician Assistant Surgical | DX: R10.9 Unspecified abdominal pain (principal) | CPT/HCPCS: 74250 ==

== ENCOUNTER 2024-12-31 20:08 | Outpatient (BNV) | payer OTHER, SELFPAY | END 2025-01-01 09:00 | PROVIDERS: Admitting Provider Student in an Organized Health Care Education/Training Program; Emergency Provider Emergency Medicine; Visit Provider Radiology Diagnostic Radiology | DX: R10.9 Unspecified abdominal pain (principal) | CPT/HCPCS: 74018 ==

== ENCOUNTER → 2024-12-31 20:08 | Outpatient (BNV) | payer OTHER, SELFPAY | PROVIDERS: Admitting Provider Student in an Organized Health Care Education/Training Program; Emergency Provider Emergency Medicine; Visit Provider Surgery | DX: B33.8 Other specified viral diseases (principal); R10.9 Unspecified abdominal pain | CPT/HCPCS: 99222; 99232 ==

== ENCOUNTER → 2024-12-31 20:08 | Outpatient (BNV) | payer OTHER, SELFPAY | PROVIDERS: Admitting Provider Student in an Organized Health Care Education/Training Program; Emergency Provider Emergency Medicine; Visit Provider Physician Assistant | DX: B33.8 Other specified viral diseases (principal) | CPT/HCPCS: 99223; 99231; 99239 ==

== ENCOUNTER 2025-01-09 10:49 | Outpatient (AMB) | payer OTHER, SELFPAY ==
--- NOTE | 2025-01-09 11:00 | AM.OFFWIN_ITS ---
Intake Vital Signs 01/09/25 11:10 BP 128/84 Blood Pressure Location Lt brachial Position Sitting Pulse 88 Pulse Source Pulse Oximeter Temp 98.1 F Temp Source Oral Pulse Oximetry (%) 94 Oxygen Delivery Method Room Air Intake Visit Reasons: EP chest tightness, heart palpitations Intake Note: Patient here because she caught RSV while at the hospital and she is also having abdominal pain and was seen at the ED but did not get the care she was expecting. Patient Tobacco Use Status: Former Tobacco user Allergies hydrocodone [From Vicodin] Allergy (Verified 01/09/25 11:08) Anaphylaxis Penicillins Allergy (Verified 01/09/25 11:08) Rash Do you need a note to return to daycare/school/sports/work: Yes HPI HPI Comments History of Present Illness Details History - The patient is a 49-year-old female pr esenting with persistent respiratory symptoms and abdominal issues. She fell ill on December 28 with RSV, being hospitalized and discharged on January 07. Despite medication, she experiences unresolved shortness of breath, migraines, abdominal pain and coughing, using nebs every 5-6 hours. Also c/o abdominal pain, described as twisting in the lower left, occurs post intake, aggravated by constant coughing; dilated small bowel loops identified without obstruction on imaging. Following with Gen Surgery. She reports severe migraine headaches with insufficient prescription post discharge, causing additional distress. She did receive a med in the hospital that worked but she is not sure what it was. Has tried Tylenol with no relief, cannot take NSAIDs due to previous abd surgeries and issues. Medications include loratadine, prednisone, guaifenesin with codeine, and nebulizer treatments. No tobacco use is ongoing. Today was last day of prednisone. She also c/o anxiety 2/2 health and job concerns. Physical Exam General: Cooperative, healthy appearing, comfortable and no acute distress Orientation/consciousness: Patient oriented x3 Limitations: No limitations Head: Normal to inspection Ears: Hearing grossly normal bilaterally, external ears normal and TM's normal bilaterally Nose: Normal external nose present, Normal nares present and No nasal discharge present Face and sinus: Normal facial exam and bilat frontal sinuses tender Mouth: Normal oral and palatal mucosa present and moist mucous membranes Throat: Yes tonsils normal, Yes uvula midline. Posterior oropharynx erythema Eyes: Appearance normal, both eyes and all related structures Neck: Normal visual inspection Respiratory: rhonchi and exp wheezes. Normal respiratory effort, able to speak in complete sentences, Actively coughing, no respiratory distress, not tachypneic, no tripod positioning and no use of accessory muscles Cardiovascular: Regular rate and rhythm. Normal S1 and S2 Skin: No rashes or lesions noted Neuro: Patient oriented x3 Extremities: Normal to inspection and Yes no clubbing, cyanosis or edema PFSH Medical History (Updated 01/09/25 @ 11:40 by Heidy Knapp PA-C) Fibromyalgia Mild intermittent asthma History of small bowel obstruction Surgical History (Updated 12/31/24 @ 21:06 by Milagros Frausto PA-C) History of appendectomy H/O breast augmentation S/P cholecystectomy H/O gastric bypass Social History Household Members: Significant Other Housing: Apartment Do you presently have visiting nurse or other home services: No Patient Tobacco Use Status: Former Tobacco user Tobacco use type: Cigarette e-Cigarette/Vaping Use: Never Used Second Hand Smoke Exposure: No service: No Review of Systems Const All systems reviewed & are unremarkable except as noted in HPI and below Assessment & Plan Assessment & Plan (1) RSV infection: Code(s): B33.8 - Other specified viral diseases Qualifiers: RSV infection type: acute bronchitis Qualified Code(s): J20.5 - Acute bronchitis due to respiratory syncytial virus Plan: 94% on RA, pt well appearing but coughing quite a bit during exam. Will get CXR to rule out PNA. Flonase has been recommended for sinus congestion. The patient will continue nebulizer therapy every 5-6 hours to manage their respiratory condition and loratadine for symptomatic relief. A tapered prednisone course has been prescribed to manage inflammation from RSV, extending systemic corticosteroid therapy. Sent full Viral panel as well to rule out secondary viral illness. Wrote work note for 3 days. Patient was informed and verbally consented to the use of an ambient scribe for clinic note documentation during this visit (2) Acute asthma exacerbation: Code(s): J45.901 - Unspecified asthma with (acute) exacerbation Qualifiers: Asthma severity: mild Asthma persistence: persistent Qualified Code(s): J45.31 - Mild persistent asthma with (acute) exacerbation Plan: as above (3) Persistent headaches: Code(s): R51.9 - Headache, unspecified Plan: Fioricet has been prescribed for migraine relief with concurrent minimal acetaminophen use. Pt understands one time prescription. (4) Situational anxiety: Code(s): F41.8 - Other specified anxiety disorders Plan: A limited quantity of trazodone is supplied for sleep until further review by primary care. Also sent hydroxyzene for daytime use of anxiety due to lengthy illness and concerns for health and job. Orders: Orders Resp Pathogen [place] [facility] [place] J06.9 - Acute upper respiratory infection, unspecified XR chest 2V Today R05.9 - Cough, unspecified Medications: New ondansetron 4 mg PO Q8H PRN 15 tabs 0RF nausea and vomiting methylprednisolone PO PER PKG DIR for 6 days 21 ea 0RF [id number]-[id number]-rong 50-325-40 mg 1 tab PO Q4-6H PRN 10 tabs 0RF headache fluticasone propionate 50 mcg/actuation administer into each nostril 1 spray intranasal Q12H 16 grams 0RF trazodone 50 mg PO DAILY PRN 15 tabs 0RF insomnia hydroxyzine HCl 25 mg PO Q8H PRN 15 tabs 0RF anxiety Coding Level of Care Code New Pt Level 5 (74459) Diagnoses Respiratory syncytial virus (RSV) as cause of acute bronchitis J20.5 RSV infection type: acute bronchitis Mild persistent asthma with acute exacerbation J45.31 Asthma severity: mild Asthma persistence: persistent Persistent headaches R51.9 Situational anxiety F41.8
[2025-01-09 11:10] VITALS: BP 128/84; PULSE 88; TEMP 36.7; O2SAT 94
--- OUTSIDE RECORDS SUMMARY | 2025-01-09 13:25 | XMS_ITS | Clinical Summary ---
Author Organization [facility] Address [address] [place] [address] Care Team Providers Care Shell Maker Lockstitch Name Role Phone Unavailable Primary Care Provider [...]
--- OUTSIDE RECORDS SUMMARY | 2025-01-09 13:25 | XMS_ITS | Clinical Summary ---
Author Organization [facility] [place] [address] Care Team Providers Care Rugby Union Footballer Name Role Phone Unavailable Primary Care Provider Unavailabl e Social History Tobacco Use Types Packs/Day Years Used Date Smoking Tobacco: Never Assessed Comments Unknown Sex and Gender Information Value Date Recorded Sex Assigned at Not on file Legal Sex Female 2:11 PM EDT Gender Identity Not on file Sexual Orientation Not on file Obstetrics History Plan of Treatment Health Maintenance Due Date Last Done Comments Breast Cancer Screening 1973 DTaP,Tdap,and Td Vaccines (1 - Tdap) 1992 Hepatitis B Vaccines (1 of 3 - 19+ 3-dose series) 1992 Cervical Cancer Screening: P ap Smear 1994 Pneumococcal Vaccine: 50+ Ye ars (1 of 1 - PCV) 2023 Zoster Vaccines (1 of 2) 2023 COVID-19 Vaccine (1 - 2023-2 5 season) 2024 Influenza Vaccine (#1) 2024 [...] patient's age to complete this topic Meningococcal B Vacine Aged Out No lo nger eligible based on patient's age to complete [...]
== END 2025-01-09 11:44 | disposition home or self-care (01) ==
PROVIDERS: Visit Provider Physician Assistant
DX: J20.5 Acute bronchitis due to respiratory syncytial virus (principal); J45.31 Mild persistent asthma with (acute) exacerbation; R51.9 Headache, unspecified; F41.8 Other specified anxiety disorders

== ENCOUNTER 2025-01-09 10:49 | Outpatient (REF) | payer OTHER, SELFPAY ==
--- NOTE | ~2025-01-09 | XR_ITS ---
EXAMINATION: XR CHEST CLINICAL INFORMATION: R05.9 - Cough, unspecified COMPARISON: 01/03/2025. 12/31/2024. TECHNIQUE: 2 views of the chest were obtained. FINDINGS: The cardiac, hilar, and mediastinal contours are normal. Lungs demonstrate mild residual left base opacity, likely improving persistent pneumonia. Right lung is clear. There is no pneumothorax or pleural effusion. There is no focal osseous or soft tissue abnormality. There are cholecystectomy clips. XR/XR chest 2V IMPRESSION: Persistent but mildly improved left lower lobe pneumonia. No effusion. Electronically signed by: Griffin Leahy MD 01/09/2025 11:55 AM [facility] [place]
--- OUTSIDE RECORDS SUMMARY | 2025-01-09 14:40 | XMS_ITS | Clinical Summary ---
Author Organization [facility] [place] [address] Care Team Providers Care Leather Sponger Name Role Phone Unavailable Primary Care Provider [...]
--- OUTSIDE RECORDS SUMMARY | 2025-01-09 14:40 | XMS_ITS | Clinical Summary ---
Author Organization [facility] Address [address] [place] [address] Care Team Providers Care Spot Billing Clerk Name Role Phone Unavailable Primary Care Provider [...]
[2025-01-10 08:38] LABS: Adenovirus PCR Not Detected (Not Detect.); Bordetella parapertussis PCR Not Detected (Not Detect.); Bordetella pertussis PCR Not Detected (Not Detect.); Chlamydia pneumoniae PCR Not Detected (Not Detect.); Coronavirus 229E PCR Not Detected (Not Detect.); Coronavirus HKU1 PCR Not Detected (Not Detect.); Coronavirus NL63 PCR Not Detected (Not Detect.); Coronavirus OC43 PCR Not Detected (Not Detect.); Human metapneumovirus PCR Not Detected (Not Detect.); Influenza A PCR Not Detected (Not Detect.); Influenza B PCR Not Detected (Not Detect.); Mycoplasma pneumoniae PCR Not Detected (Not Detect.); Parainfluenza 1 PCR Not Detected (Not Detect.); Parainfluenza 2 PCR Not Detected (Not Detect.); Parainfluenza 3 PCR Not Detected (Not Detect.); Parainfluenza 4 PCR Not Detected (Not Detect.); RSV PCR Not Detected (Not Detect.); Rhino/Enterovirus PCR Not Detected (Not Detect.)
[2025-01-10 08:51] LABS: SARS-CoV-2 PCR Not Detected (Not Detect.)
== END 2025-01-09 10:50 | disposition home or self-care (01) ==
LOC: HO.HMGCX 10:49
PROVIDERS: Visit Provider Physician Assistant
DX: J20.5 Acute bronchitis due to respiratory syncytial virus (principal); J06.9 Acute upper respiratory infection, unspecified; R05.9 Cough, unspecified; J45.31 Mild persistent asthma with (acute) exacerbation; R51.9 Headache, unspecified; F41.8 Other specified anxiety disorders
CPT/HCPCS: 71046; 87633

== ENCOUNTER → 2025-01-09 11:40 | Outpatient (BNV) | payer OTHER, SELFPAY | PROVIDERS: Visit Provider Radiology Diagnostic Radiology | DX: J18.8 Other pneumonia, unspecified organism (principal); R05.9 Cough, unspecified | CPT/HCPCS: 71046 ==

== ENCOUNTER 2025-01-11 15:50 | Outpatient (AMB) | payer OTHER, SELFPAY ==
[2025-01-11 15:59] VITALS: BP 110/86; PULSE 99; TEMP 36.4; O2SAT 95; BMI 28.0
--- NOTE | 2025-01-11 15:59 | MHC.PC.OV ---
Vital Signs 01/11/25 15:59 Height 5 ft 2 in Weight 153 lb BMI 28.0 BP 110/86 Blood Pressure Location Lt brachial Position Sitting Pulse 99 Pulse Source Pulse Oximeter Temp 97.5 F Temp Source Temporal Artery Scan Pulse Oximetry (%) 95 Oxygen Delivery Method Room Air Intake Visit Reasons: establish care/ discharge [facility] 01/07 Shore Man Required: No Accompanied by: Self / Same As Patient Allergies hydrocodone [From Vicodin] Allergy (Verified 01/11/25 17:29) Anaphylaxis Penicillins Allergy (Verified 01/11/25 17:29) Rash Medication List - Last Reconciled 01/11/25 by OSCAR Lyon albuterol sulfate 90 mcg/actuation 2 puffs inhalation Q6H PRN azithromycin For 250 mg dose pack: take 500 mg today (day 1), then 250 mg for 4 days (days 2-5) PO znyemsyhhz-ocvzdlvskhwbh-iyan 50-325-40 mg 1 tab PO Q4-6H PRN cefpodoxime 200 mg PO Q12H codeine-guaifenesin 10-100 mg/5 mL 10 mL PO Q4H PRN docusate sodium (Colace) 100 mg PO DAILY PRN fluticasone propionate 50 mcg/actuation 1 spray intranasal Q12H gabapentin 300 mg PO TID PRN hydroxyzine HCl 25 mg PO Q8H PRN lidocaine 4% (Lidocaine Pain Relief) 1 patch See Protocol transdermal DAILY loratadine 10 mg PO DAILY melatonin 5 mg PO BEDTIME PRN methocarbamol 750 mg PO Q8H PRN methylprednisolone PO PER PKG DIR for 6 days ondansetron 4 mg PO Q8H PRN polyethylene glycol 3350 (Miralax) 17 grams PO DAILY PRN prednisone 20 mg (2 x 10 mg) PO DAILY trazodone 50 mg PO BEDTIME PRN trazodone 50 mg PO DAILY PRN Tobacco use date assessed: 01/11/25 Dental Screening Dental Screen Date: 01/11/25 Did you have a dental visit in the last 12 months?: Yes Did you have a dental problem in the last 6 months where you did not have access to dental care?: No Was dental information given to patient?: Patient has dentist HPI establish care/ discharge [facility] 01/07 HPI Details Patient is a 49 year old female who is presenting to establish care Patient is coughing on and off and reporting that it is hard for her to breathe Reports that she was diagnosed with pneumonia two days ago in the urgent care and is currently on cefpodoxime The patient also c/o severe diffuse abdominal pain Reports that she has a history of gastric bypass in 2003 and has have three obstructions in the past, with the last time 2013 in [place]. hx:of cholecystectomy, appendectomy and pancreatitis The patient reports that she has not moved her bowels since last (8 days) and she has been taking laxatives and drinking plenty of fluids The patient was recently hospitalized 12/31/2024 for asthma exacerbation in the setting of RSV-treated with steroids, nebs, cough meds and was given IV fluids and was discharged on 01/07/25 The patient was also worked up for acute abdomen while hospitalized due to complaints of abdominal pain Abominal CT showed possible ileus and the patient was seen by surgery. She underwent a SBFT which showed contrast in the colon going against SOB or ileus. The patient was discharged from [facility] 01/07. On exam: expiratory wheezes in upper bilateral lowers, diminished lung sounds in bilateral lower lobes. Abdomen round,distended and severe pain with light palpation. Discussed with patient that she needs to go the ER to r/o acute abdomen. Explained to the patient that she needed to go by ambulance because of the risk of having bowel perforation. Emergency service was called and I stayed with the patient till the ambulance arrived. Reported off to the EMS personal, who transport the patient onto a stretcher. The patient that was waiting in the waiting room was notified as well. He took the patient belongings and followed the stretcher out. [facility] Medical History Fibromyalgia Mild intermittent asthma History of small bowel obstruction Surgical History History of appendectomy H/O breast augmentation S/P cholecystectomy H/O gastric bypass Social History Household Members: Significant Other Housing: House Do you presently have visiting nurse or other home services: No Patient Tobacco Use Status: Former Tobacco user Tobacco use type: Cigarette e-Cigarette/Vaping Use: Never Used Second Hand Smoke Exposure: No service: No Cognitive needs: No Hearing needs: No Vision needs: No Questionnaire PHQ-9 Over the last 2 weeks, how often have you been bothered by any of the following problems? 1. Little interest or pleasure in doing things: several days 2. Feeling down, depressed, or hopeless: several days 3. Trouble falling or staying asleep, or sleeping too much: several days 4. Feeling tired or having little energy: several days 5. Poor appetite or overeating: several days 6. Feeling bad about yourself - or that you are a failure or have let yourself or your family down: not at all 7. Trouble concentrating on things, such as reading the newspaper or watching television: not at all 8. Moving or speaking so slowly that other people could have noticed. Or the opposite - being so fidgety or restless that you have been moving around a lot more than usual: several days 9. Thoughts that you would be better off or of hurting yourself in some way: not at all Total score: 6 Depression Screening Interpretation: Positive Depression Screening Done: Yes 65356 - PHQ-9 Billing: Yes Source: Developed by Drs. Charli Vizcaino, Roseanne Sinclair, Tico Vegas and colleagues, with an educational kalee from [employer]. Thrive Questionnaire Date Thrive assessed: 01/11/25 I am a: Patient What is your living situation today?: I have a steady place to live Within the past 12 months, did the food you bought not last and you didn't have the money to get more?: I choose not to answer this question Within the past 12 months, did you worry whether your food would run out before you got money to buy more?: Sometimes True Do you have trouble paying for medicines?: No Do you have trouble getting transportation to medical appointments?: No Do you have trouble paying your heating and electricity bill?: No Do you have trouble taking care of your child, family member or friend?: No Do you have trouble with day-to-day activities such as bathing, preparing meals, shopping, managing finances, etc.?: No Are you currently unemployed and looking for a job?: No Are you interested in more education?: No Please select the resources that you would like help with: Food Currently or been in a relationship where the following occur: No concerns reported THRIVE Score: 1 AUDIT C Alcohol Use Questionnaire (AUDIT-C) 1. How often do you have a drink containing alcohol?: Monthly or less 2. How many drinks containing alcohol do you have on a typical day when you are drinking?: 1 or 2 3. How often do you have six or more drinks on one occasion?: Never Total Score: 1 DONTRELL-7 AMB Questionnaire DONTRELL-7 Date DONTRELL - 7 assessed: 01/11/25 Feeling nervous, anxious, or on edge: 1 = Several days Not being able to stop or control worryin = Several days Worrying too much about different things: 1 = Several days Trouble relaxin = Several days Being so restless that it is hard to sit still: 1 = Several days Becoming easily annoyed or irritable: 1 = Several days Feeling afraid as if something awful might happen: 0 = Not at all Total DONTRELL-7 score (0-4 normal; 5-9 mild; 10-14 moderate; 15-21 severe): 6 Source: Developed by Drs. Charli Vizcaino, Roseanne Sinclair, Tico Vegas and colleagues, with an educational kalee from [employer]. DONTRELL-7 Assessment Billing DONTRELL-7 Assessment Tool: DONTRELL-7 Assessment 27780 Review of Systems Const Details: Denies chills, Denies fatigue, Denies fever(s), Denies headache(s) and Denies weakness HEENT Denies change in vision, Denies dizziness, Denies headache(s), Denies hearing loss, Denies nasal congestion, Denies sinus pain, Denies sinus pressure and Denies sore throat Card Denies chest pain, Denies lightheadedness, + dyspnea and Denies other (palpitations) Resp +cough, + dyspnea and + wheezing GI reports severe abdominal pain, Denies melena, Denies hematochezia, reports constipation for 8 days, + dyspepsia and + nausea and vomiting Denies hematuria and Denies dysuria Physical exam (Primary Care) Vital Signs: Last Vital Signs Temp 97.5 F 01/11/25 15:59 Pulse 99 01/11/25 15:59 BP 110/86 01/11/25 15:59 Pulse Ox 95 01/11/25 15:59 Oxygen Delivery Method Room Air 01/11/25 15:59 BMI result Body Mass Index 28.0 Tobacco/Smoking Status: Tobacco use Status Tobacco use date assessed 01/11/25 01/11/25 16:05 Patient Tobacco Use Status Former Tobacco user 01/11/25 15:59 Tobacco use type Cigarette 01/11/25 15:59 e-Cigarette/Vaping Use Never Used 01/11/25 15:59 PHQ-9: PHQ-9 Score PHQ-9: Total score 6 01/11/25 17:27 Depression Screening Interpretation: Positive Thrive Assessment: Date of Thrive Assessment Date Thrive assessed 01/11/25 01/11/25 16:05 Currently or been in a relationship where the following occur: No concerns reported Const Other: General: no acute distress, well developed, alert and awake Nutritional Appearance: well nourished Orientation/consciousness: patient oriented x3 HENMT Head: Yes normocephalic and Yes atraumatic Ears: hearing grossly normal bilaterally and TM's normal bilaterally General nose exam: Normal external nose present and Normal nares present Mouth: Normal oral and palatal mucosa present and moist mucous membranes Eyes Pupils: Equal, round and reactive pupils present and Pupil accommodation reflex normal EOM: EOMs intact bilaterally Neck Neck: Yes normal visual inspection, Yes no lymphadenopathy and Yes trachea midline Thyroid: Thyroid normal Lymphatic: no lymphadenopathy noted Resp Effort & Inspection: normal respiratory effort Auscultation: expiratory wheezes in upper lobes and diminished breath sounds in lower lobes Cardio Rate: regular rate Rhythm: regular rhythm Heart sounds: S1 normal heart sound present, S2 normal heart sound present, no gallops, no murmurs and no rubs GI Palpation (GI): abomen soft, round, distended, severe pain to light palpation Auscultation: hypoactive bowel sounds General: Yes no CVA tenderness Coding Level of Care Code New Pt Level 5 (17830) Diagnoses Generalized abdominal pain R10.84 Abdominal location: generalized Pneumonia of lower lobe due to infectious organism, unspecified laterality J18.9 Pneumonia type: due to unspecified organism Laterality: unspecified laterality Lung location: lower lobe of lung Chronic idiopathic constipation K59.04 Constipation type: chronic idiopathic constipation Mild persistent asthma with acute exacerbation J45.31 Asthma severity: mild Asthma persistence: persistent Additional Codes DONTRELL-7 Assessment Billing - DONTRELL-7 Assessment Tool: DONTRELL-7 Assessment [id number] ([id number]) PHQ-9 - 35435 - PHQ-9 Billing: Yes ([id number]) Time Spent (min) 47 Assessment & Plan Assessment & Plan (1) Abdominal pain: Code(s): R10.9 - Unspecified abdominal pain Category: Medical Qualifiers: Abdominal location: generalized Qualified Code(s): R10.84 - Generalized abdominal pain Plan: Severe abdominal pain to light palpation. Abdomen round and distended. The patient was sent to the ER via ambulance. (2) Pneumonia: Code(s): J18.9 - Pneumonia, unspecified organism Category: Medical Qualifiers: Pneumonia type: due to unspecified organism Laterality: unspecified laterality Lung location: lower lobe of lung Qualified Code(s): J18.9 - Pneumonia, unspecified organism Plan: The patient is currently being treated for pneumonia with cefpodoxime. She was diagnosed in urgent care two days ago Reports that she has not started feeling better as yet. (3) Constipation: Code(s): K59.00 - Constipation, unspecified Category: Medical Qualifiers: Constipation type: chronic idiopathic constipation Qualified Code(s): K59.04 - Chronic idiopathic constipation Plan: The patient reports that she has not moved her bowels since last (8 days ago). She has a hx of constipation and at times goes every 3 days. She reports trying to take laxatives and increase fluids intake without any success (4) Acute asthma exacerbation: Code(s): J45.901 - Unspecified asthma with (acute) exacerbation Category: Medical Qualifiers: Asthma severity: mild Asthma persistence: persistent Qualified Code(s): J45.31 - Mild persistent asthma with (acute) exacerbation Plan: The patient was discharged from the hospital on 01/07. Treated for asthma exacerbation in the setting of +RSV. The patient is reporting difficulty breathing, coughing and wheezing. Reports using nebulizer tx with some relief.
--- OUTSIDE RECORDS SUMMARY | 2025-01-11 17:49 | XMS_ITS | Clinical Summary ---
Author Organization [facility] [place] [address] Care Team Providers Care Valver Name Role Phone Unavailable Primary Care Provider [...]
--- OUTSIDE RECORDS SUMMARY | 2025-01-11 17:49 | XMS_ITS ---
Author Name [facility] Organization Unknown Results Test Name/Text Value Interpretation Date Range Source FLUBV RNA Nph Ql AIDAN+non-probe Not Detected Normal [id number] [facility] FLUAV RNA Nph Ql AIDAN+non-probe Not Detected Normal [id number] [facility] Service [facility] XXX-Imp Tim Alinity M Normal [id number] [facility] RSV RNA Nph Ql AIDAN+non-probe Not Detected Normal [id number] [facility] Troponin I SerPl HS-mCnc 4ng/L Normal [id number] 0 - 14 [facility] CREAT SERPL MCNC 0.6mg/dL Normal [id number] 0.5 - 1 [facility] SODIUM SERPL SCNC 141mmol/L Normal [id number] 135 - 145 [facility] GLUCOSE SERPL MCNC 79mg/dL Normal [id number] 70 - 199 [facility] Glomerular filtration rate/1.73 sq M. predicted 109 Normal [id number] 60 - [facility] CHLORIDE SERPL SCNC 104mmol/L Normal [id number] 98 - 107 [facility] HCO3 SER SCNC 25mmol/L Normal [id number] 24 - 32 CTT [facility] POTASSIUM SERPL SCNC 3.9mmol/L Normal [id number] 3.5 - 5.1 [facility] ANION GAP SERPL SCNC 12mmol/L Normal [id number] 5 - 14 [facility] BUN SERPL MCNC 10mg/dL Normal [id number] 7 - 17 CT [facility] CALCIUM SERPL MCNC 9.7mg/dL Normal [id number] 8.4 - 10.2 [facility] MAGNESIUM SERPL MCNC 1.9mg/dL Normal [id number] 1.7 - 2.8 [facility] DIFFERENTIAL TYPE AUTOMATED Normal [id number] [facility] NEUTROPHILS NFR BLD AUTO 52.5% Normal [id number] 44 - 74 [facility] BASOPHILS NFR BLD AUTO 0.6% Normal [id number] 0 - 2 [facility] MONOCYTES NFR BLD AUTO 10.2% Normal [id number] 2 - 12 [facility] HCT VFR BLD AUTO 41.4% Normal [id number] 37 - 47 [facility] MONOCYTES NO. BLD AUTO 0.5K/uL Normal [id number] 0 - 0.8 [facility] RDW RBC AUTO RTO 14% Normal [id number] 12.1 - 16.2 [facility] PLATELET NO. BLD AUTO 216K/uL Normal [id number] 150 - 450 [facility] EOSINOPHIL NO. BLD AUTO 0.1K/uL Normal [id number] 0 - 0.5 [facility] RBC NO. BLD AUTO 4.3M/uL Normal [id number] 4.2 - 5.4 [facility] MCH RBC QN AUTO 33.3pg Above high normal [id number] 25 - 33 [facility] MCHC RBC AUTO MCNC 34.6g/dL Normal [id number] 32 - 36 [facility] HGB BLD MCNC 14.3g/dL Normal [id number] 12.5 - 16 [facility] BASOPHILS IN BLOOD BY AUTOMATED COUNT 0K/uL Normal [id number] 0 - 0.2 [facility] WBC NO. BLD AUTO 4.9K/uL Normal [id number] 4 - 10.5 [facility] EOSINOPHIL NFR BLD AUTO 1.8% Normal [id number] 0 - 6 [facility] LYMPHOCYTES NFR BLD AUTO 34.9% Normal [id number] 20 - 48 [facility] MCV RBC AUTO 96.2fL Normal [id number] 78 - 100 [facility] NEUTROPHILS NO. BLD AUTO 2.6K/uL Normal [id number] 1.8 - 7.8 [facility] LYMPHOCYTES NO. BLD AUTO 1.7K/uL Normal [id number] 1 - 3.2 [facility] PMV BLD AUTO 9.3fL Normal [id number] 7.4 - 11.4 [facility]TT [facility] SPECIMEN SOURCE XXX NASOPHARYNGEAL Normal [id number] [facility] History of Medication Use Medication Directions Dispensed Refills Start Date End Date Stat acetaminophen (TYLENOL) tablet 650 mg 650 mg, Oral, Once, On Tue07/09/24 at 2100, For 1 dose 07/10/2024 07/10/2024 completed LORazepam (ATIVAN) 2 MG/ML injection 0.5 mg 0.5 mg, Intravenous, Once, On 07/09/24 at 2100, For 1 dose 07/10/2024 07/10/2024 completed traZODone (DESYREL) 50 MG tablet Take 1 tablet (50 mg total) by mouth every night at bedtime for 30 days. 07/10/2024 08/10/2024 active melatonin 3 MG TABS tablet Take 1 tablet (3 mg total) by mouth every night at bedtime. 07/10/2024 active ondansetron (ZOFRAN) 8 MG tablet Take 0.5 tablets (4 mg total) by mouth every 8 (eight) hours as needed for nausea. 07/10/2024 active Problems Problem Status Onset Date Problem Type Date of Resoluti on Source Chest pain active EncounterDiagnosisAct [facility] Grief reaction active EncounterDiagnosisAct [facility]
--- OUTSIDE RECORDS SUMMARY | 2025-01-11 17:49 | XMS_ITS | Clinical Summary ---
Author Organization [facility] Address [address] [place] [address] Care Team Providers Care Photograph Mounter Name Role Phone Unavailable Primary Care Provider [...]
== END 2025-01-11 17:00 | disposition home or self-care (01) ==
DX: R10.84 Generalized abdominal pain (principal); J18.9 Pneumonia, unspecified organism; K59.04 Chronic idiopathic constipation; J45.31 Mild persistent asthma with (acute) exacerbation

== ENCOUNTER → 2025-01-11 15:50 | Outpatient (BNVA) | payer OTHER, SELFPAY | DX: R10.84 Generalized abdominal pain (principal); J18.9 Pneumonia, unspecified organism; K59.04 Chronic idiopathic constipation; J45.31 Mild persistent asthma with (acute) exacerbation | CPT/HCPCS: 96127 ==

== ENCOUNTER 2025-01-11 17:16 | Inpatient (IN) | payer OTHER, SELFPAY ==
[2025-01-11] VITALS (7 sets, daily range): BP systolic 115–136; BP diastolic 76–100; PULSE 85–100; RESP 16–26; TEMP 36.9–37.1; O2SAT 85–98; BMI 25.4
--- NOTE | ~2025-01-11 | XR_ITS ---
CLINICAL HISTORY: cough 1 view chest x-ray Comparison: CR/SR - XR CHEST 2V - 01/09/25 11:50 EST CR/SR - XR CHEST 1V - 01/03/25 08:50 EST Findings: Slight increase in left basilar opacity may be worsening pneumonia or atelectasis. Normal size heart. No acute fracture. IMPRESSION: 1. Increasing left basilar opacity, may represent worsening pneumonia or atelectasis. This document has been electronically signed by: Jenni Walters MD on 01/11/2025 18:54:58
--- NOTE | ~2025-01-11 | US_ITS ---
CLINICAL HISTORY: pain, swelling Venous duplex ultrasound right lower extremity Comparison: None Findings: The visualized deep veins are fully compressible with normal Doppler color flow and spectral tracings. No popliteal cyst. IMPRESSION: 1. Negative for right lower extremity deep vein thrombosis. This document has been electronically signed by: Lucas Castillo MD on 01/11/2025 22:08:50
--- NOTE | ~2025-01-11 | CT_ITS ---
CLINICAL HISTORY: infection CT chest with contrast Comparison: CR - XR CHEST 1V - 01/11/25 18:[address]/SR - CT ABDOMEN PELVIS W IV CON - 12/31/24 17:19 EST Findings: The heart is normal size. The visualized thyroid and mediastinum are unremarkable. Bilateral breast implants. Bilateral lower lobe consolidations. No pleural effusion or pneumothorax. The visualized upper abdomen is unremarkable. No acute fractures. IMPRESSION: 1. Bilateral lower lobe consolidations, concerning for pneumonia. This document has been electronically signed by: Jenni Walters MD on 01/11/2025 21:42:30
--- NOTE | ~2025-01-11 | CT_ITS ---
CLINICAL HISTORY: pain, sbo? cant tolerate PO CT abdomen and pelvis with contrast Comparison: CT/SR - CT ABDOMEN PELVIS W IV CON - 12/31/24 17:19 EST Findings: Bilateral lower lobe consolidations. Bilateral breast implants. Cholecystectomy. No biliary duct dilatation. Liver, spleen, pancreas, and adrenal glands are within normal limits. No hydronephrosis. Symmetric contrast enhancement of the kidneys. Parenchymal calcification in the right upper pole. Postsurgical changes in the stomach. No bowel obstruction, pneumatosis or pneumoperitoneum. Stool throughout the colon. IUD in the endometrial cavity. Urinary bladder is within normal limits. No acute fracture. IMPRESSION: 1. Bilateral lower lobe consolidations, concerning for pneumonia. 2. No acute abdominal or pelvic findings. No bowel obstruction. This document has been electronically signed by: Jenni Walters MD on 01/11/2025 21:40:33
--- NOTE | 2025-01-11 17:28 | ECG_ITS ---
Test Reason : SOB Blood Pressure : */* mmHG Vent. Rate : 85 BPM Atrial Rate : 85 BPM P-R Int : 134 ms QRS Dur : 70 ms QT Int : 380 ms P-R-T Axes : 41 21 22 degrees QTcB Int : 452 ms Normal sinus rhythm Normal ECG When compared with ECG of 31-Dec-2024 15:03, No significant change was found Referred By: Abigail Clemente Electronically Signed By: Ian Johnson
[2025-01-11] MEDS: Albuterol Sulfate 5 MG, Albuterol/Iprat 2.5/0.5MG 3 ML 3 ML INHALE (17:33)
[2025-01-11] MEDS: Magnesium Sulfate/H2O 2 GM/50 ML PIGGYBACK IV (17:44)
[2025-01-11] MEDS: methylPREDNISolone Sod Succ 125 MG/2 ML VIAL IVPUSH (17:44)
[2025-01-11] MEDS: ondansetron HCL 4 MG/2 ML VIAL IVPUSH (17:44)
[2025-01-11] MEDS: HYDROmorphone HCl 1 MG/ML SYRINGE IVPUSH ×3 (17:44→22:33)
[2025-01-11] MEDS: 0.9 % Sodium Chloride 1,000 ML 999 ML IV ×2 (17:45→17:57)
--- NOTE | 2025-01-11 17:48 | ED_ITS ---
HPI - General Adult General Chief complaint: General Medical Stated complaint: abd pain, diff breathing Time Seen by Provider: 01/11/25 17:25 Source: patient Limitations: no limitations History of Present Illness ED Provider: Abigail Clemente PA-C HPI narrative: 49-year-old female with a history of multiple abdominal surgeries including gastric bypass x3, cholecystectomy, appendectomy and multiple small bowel obstructions, fibromyalgia, insomnia, mild intermittent asthma, recent hospital admission for ileus found to be positive for RSV at that time, just discharge January 04, presents with the abdominal pain and shortness of breath. Patient's cough is dry and repetitive, she was placed on antibiotics at the time of her discharge. Patient was found to be hypoxic, mid 80s on room air. Denies fever. In regard to her abdominal discomfort, the patient states it is generalized, and severe. Denies abdominal distention, she has not had a bowel movement for 5 days, she is passing minimal flatus from below. Associated nausea vomiting. Related Data Home Medications ?Medication ?Instructions ?Recorded ?Confirmed trazodone 50 mg tablet 50 mg PO BEDTIME PRN Sleep 08/02/24 01/11/25 gabapentin 600 mg tablet 300 mg PO TID PRN Pain 12/31/24 01/11/25 melatonin 5 mg tablet 5 mg PO BEDTIME PRN Sleep 12/31/24 01/11/25 methocarbamol 750 mg tablet 750 mg PO Q8H PRN Muscle Spasm 12/31/24 01/11/25 Previous Rx's ?Medication ?Instructions ?Recorded albuterol sulfate 90 mcg/actuation 2 puff inhalation Q6H PRN 12/18/24 aerosol inhaler shortness of breath or wheezing #8.5 grams docusate sodium 100 mg capsule 100 mg PO DAILY PRN constipation 01/04/25 (Colace) #30 caps polyethylene glycol 3350 17 17 g PO DAILY PRN constipation 01/04/25 gram/dose oral powder (Miralax) #119 grams prednisone 10 mg tablet 20 mg (2 x 10 mg) PO DAILY #6 tabs 01/04/25 codeine 10 mg-guaifenesin 100 mg/5 10 ml PO Q4H PRN Cough #100 mL 01/07/25 mL oral liquid lidocaine 4 % topical patch 1 patch transdermal DAILY #5 ea 01/07/25 (Lidocaine Pain Relief) loratadine 10 mg tablet 10 mg PO DAILY #7 tabs 01/07/25 azithromycin 250 mg tablet See Rx Instructions PO .COMPLEX #6 01/09/25 tabs ohxbbermpt-qpngggabauege-kpzzopka 1 tab PO Q4-6H PRN headache #10 01/09/25 50 mg-325 mg-40 mg tablet tabs cefpodoxime 200 mg tablet 200 mg PO Q12H #14 tabs 01/09/25 fluticasone propionate 50 1 spray intranasal Q12H #16 grams 01/09/25 mcg/actuation nasal spray,suspension hydroxyzine HCl 25 mg tablet 25 mg PO Q8H PRN anxiety #15 tabs 01/09/25 methylprednisolone 4 mg tablets in See Rx Instructions PO PER PKG DIR 01/09/25 a dose pack #21 ea ondansetron 4 mg disintegrating 4 mg PO Q8H PRN nausea and 01/09/25 tablet vomiting #15 tabs trazodone 50 mg tablet 50 mg PO DAILY PRN insomnia #15 01/09/25 tabs Allergies Allergy/AdvReac Type Severity Reaction Status Date / Time hydrocodone [From Vicodin] Allergy Anaphylaxis Verified 01/11/25 17:29 Penicillins Allergy Rash Verified 01/11/25 17:29 Review of Systems 2 Review of Systems: Yes all other systems are reviewed and are negative Constitutional: Constitutional: Reports fatigue, Denies fever(s) and Reports malaise Cardiovascular: Cardiovascular: Denies chest pain and Reports dyspnea Respiratory: Respiratory: Reports cough, Reports dyspnea and Denies wheezing Gastrointestinal: Gastrointestinal: Reports abdominal pain, Reports constipation, Reports nausea and Reports vomiting Endocrine: Endocrine: Reports fatigue Allergic/Immunologic: Allergic/Immunologic: Denies wheezing [facility] Past Medical History Attestation statement: The following information was validated with the patient. Medical History Fibromyalgia Mild intermittent asthma History of small bowel obstruction Surgical History History of appendectomy H/O breast augmentation S/P cholecystectomy H/O gastric bypass Social History Social History Household Members: Significant Other Housing: Apartment Do you presently have visiting nurse or other home services: No Patient Tobacco Use Status: Former Tobacco user Tobacco use type: Cigarette e-Cigarette/Vaping Use: Never Used Second Hand Smoke Exposure: No Advance Directives: No Advance Directives Information Provided: No service: No Cognitive needs: No Hearing needs: No Vision needs: No Physical Exam ED Vital Signs: Vital Signs - 24 hr 01/11/25 17:27 01/11/25 17:34 01/11/25 17:44 Temperature 98.4 F Pulse Rate 96 97 Respiratory Rate 24 H 26 H 22 H Blood Pressure Pulse Oximetry 95 Oxygen Delivery Method Nasal Cannula Oxygen Flow Rate 01/11/25 18:47 01/11/25 19:45 01/11/25 20:00 Temperature 98.7 F Pulse Rate 86 85 Respiratory Rate 22 H 16 16 Blood Pressure 118/76 127/77 Pulse Oximetry 98 98 Oxygen Delivery Method Nasal Cannula Nasal Cannula Oxygen Flow Rate 2 2 BMI result Body Mass Index 25.4 Const Other: Alert Orientation/consciousness: patient oriented x3 Resp Other: Mildly tachypneic, no wheezing on exam, active cough Cardio Other: Normal peripheral perfusion GI Other: Abdomen is soft, nondistended, generalized tenderness to palpation without guarding Skin Other: Warm dry no rash Neuro General: patient oriented x3, no focal motor deficits and CN's II-XI intact bilaterally Psych Other: Calm cooperative Course Reevaluation(s) Reevaluation #1: Concern for sepsis, she is hypoxic, she has known RSV, I am concerned that she has progressed to pneumonia. We will be ordering screening labs including blood cultures and lactic acid, she is normotensive, she was not require weight based IV fluid therapy at this time, we will start empiric antibiotics. Time: 17:48 Medications Administered Generic Name Dose Route Start Last Admin Trade Name Freq PRN Reason Stop Dose Admin Enoxaparin Sodium 40 mg 01/11/25 21:45 01/11/25 22:33 Enoxaparin Sodium 40 Mg/0.4 Ml Syringe SUBCUT 40 mg Q24H TAYA Administration Hydromorphone HCl 1 mg 01/11/25 21:38 01/11/25 22:33 Hydromorphone Hcl 1 Mg/Ml Syringe IVPUSH 1 mg Q4H PRN Administration Pain, Severe (Pain Scale 7-10) Protocol Azithromycin 500 mg/ Sodium 250 mls @ 125 mls/hr 01/11/25 22:00 01/11/25 22:34 Chloride IV 125 mls/hr Q24H TAYA Administration Sodium Chloride 3 ml 01/12/25 00:00 01/11/25 23:01 0.9 % Sodium Chloride Flush 3 Ml Syringe IVFLUSH Not Given QSHIFT TAYA Discontinued Medications Generic Name Dose Route Start Last Admin Trade Name Freq PRN Reason Stop Dose Admin Bisacodyl 10 mg 01/11/25 21:57 01/11/25 22:33 Bisacodyl 5 Mg Tablet. PO 01/11/25 21:58 10 mg ONCE ONE Administration Ceftriaxone Sodium 2 gm 01/11/25 17:52 01/11/25 17:56 Ceftriaxone Sodium 2 Gm Vial IVPUSH 01/11/25 17:53 2 gm ONCE ONE Administration Ceftriaxone Sodium 1 gm 01/11/25 22:00 01/11/25 23:00 Ceftriaxone Sodium 1 Gm Vial IVPUSH Not Given Q24H TAYA Albuterol Sulfate 5 mg/ 0 mg 01/11/25 17:31 01/11/25 17:33 Albuterol/Ipratropium 3 ml INHALE 01/11/25 17:32 1 each ONCE ONE Administration Hydromorphone HCl 1 mg 01/11/25 17:32 01/11/25 17:44 Hydromorphone Hcl 1 Mg/Ml Syringe IVPUSH 01/11/25 17:33 1 mg ONCE ONE Administration Protocol Hydromorphone HCl 1 mg 01/11/25 18:36 01/11/25 18:47 Hydromorphone Hcl 1 Mg/Ml Syringe IVPUSH 01/11/25 18:37 1 mg ONCE ONE Administration Protocol Sodium Chloride 1,000 mls @ 999 mls/hr 01/11/25 17:30 01/11/25 19:44 Ns IV 01/11/25 18:30 Infused .Q1H1M TAYA Infusion Magnesium Sulfate 2 gm in 50 mls @ 25 mls/hr 01/11/25 17:29 01/11/25 17:57 Magnesium Sulfate/H2o IV 01/11/25 19:28 Infused ONCE ONE Infusion Sodium Chloride 1,000 mls @ 999 mls/hr 01/11/25 18:00 01/11/25 19:44 Ns IV 01/11/25 19:00 Infused .Q1H1M TAYA Infusion Doxycycline Hyclate 100 mg/ 250 mls @ 166.67 mls/hr 01/11/25 19:19 01/11/25 21:51 Sodium Chloride IV 01/11/25 20:48 Infused ONCE ONE Infusion Iohexol 85 ml 01/11/25 20:24 01/11/25 20:25 Iohexol 350 Mg/Ml 100 Ml Infus..Btl IV 01/11/25 20:25 85 ml ONCE ONE Administration Methylprednisolone Sodium Succinate 125 mg 01/11/25 17:29 01/11/25 17:44 Methylprednisolone Sod Succ 125 Mg/2 Ml Vial IVPUSH 01/11/25 17:30 125 mg ONCE ONE Administration Ondansetron HCl 4 mg 01/11/25 17:32 01/11/25 17:44 Ondansetron Hcl 4 Mg/2 Ml Vial IVPUSH 01/11/25 17:33 4 mg ONCE ONE Administration Promethazine HCl 12.5 mg 01/11/25 18:36 01/11/25 18:48 Promethazine Hcl 25 Mg/Ml Vial IM 01/11/25 18:37 12.5 mg ONCE ONE Administration Procedures Procedure Narrative Procedure Narrative: Ultrasound-guided IV 18 gauge 1-3/4 inch IV placed in left upper extremity. Adequate blood return, flushes well secured with Tegaderm The line infiltrated while she was receiving treatment, the catheter was bent, I suspect she bent her arm having to place another 1 18 gauge 1-3/4 inch IV placed in right upper extremity, adequate blood return, flushes well secured with Tegaderm Medical Decision Making Medical Decision Making MDM Narrative: 49-year-old female with a history of multiple abdominal surgeries including gastric bypass x3, cholecystectomy, appendectomy and multiple small bowel obstructions, fibromyalgia, insomnia, mild intermittent asthma, recent hospital admission for ileus found to be positive for RSV at that time, just discharge January 04, presents with the abdominal pain and shortness of breath. Patient's cough is dry and repetitive, she was placed on antibiotics at the time of her discharge. Patient was found to be hypoxic, mid 80s on room air. Denies fever. In regard to her abdominal discomfort, the patient states it is generalized, and severe. Denies abdominal distention, she has not had a bowel movement for 5 days, she is passing minimal flatus from below. Associated nausea vomiting. Patient also complains of right lower extremity pain, she has had a clot in the leg before, the pain is behind the knee. Problem: Prior bowel obstruction, asthma, known RSV infection History: Per patient I have considered the following differential diagnoses: Viral syndrome, pneumonia, bronchitis, bowel obstruction, DVT Plan: In regard to the patient's respiratory complaint, she has known RSV, her symptoms have clearly progressed. Concern for sepsis, she is hypoxic, she has known RSV, I am concerned that she has progressed to pneumonia. We will be ordering screening labs including blood cultures and lactic acid, she is normotensive, she was not require weight based IV fluid therapy at this time, we will start empiric antibiotics. Regard to her abdominal pain, she had an ileus during her admission, perhaps she now has a bowel obstruction, we will be obtaining a CT scan of the abdomen. Giving antiemetic, analgesia and some IV fluid. We will give steroid, she is not currently wheezing. I spoke with the inpatient team they would like a CT of the chest. The patient also complains of left lower extremity pain behind the knee, she has had a DVT in the past, we will order an ultrasound. I have independently reviewed the following tests: Labs: No leukocytosis, not anemic, no electrolyte abnormality, lactic acid 1.8, viral panel negative CXR: Findings: Slight increase in left basilar opacity may be worsening pneumonia or atelectasis. Normal size heart. No acute fracture. IMPRESSION: 1. Increasing left basilar opacity, may represent worsening pneumonia or atelectasis. This document has been electronically signed by: Jenni Walters MD on 01/11/2025 18:54:[address]: MPRESSION: 1. Bilateral lower lobe consolidations, concerning for pneumonia. This document has been electronically signed by: Jenni Walters MD on 01/11/2025 21:42:30 DVT study right lower extremity:MPRESSION: 1. Negative for right lower extremity deep vein thrombosis. This document has been electronically signed by: Lucas Castillo MD on 01/11/2025 22:08:50 Lab Data 01/11/25 17:51 01/11/25 17:51 Labs: Lab Results 01/11/25 01/11/25 01/11/25 Range/Units 17:33 17:50 17:51 WBC 9.0 (4.8-10.8) X10*3/uL RBC 4.33 (4.20-5.50) X10*6/uL Hgb 13.7 (12.0-16.0) g/dl Hct 40.7 (37.0-47.0) % MCV 94.0 (80.0-98.0) fL MCH 31.6 (27.0-33.0) pg MCHC 33.7 (31.0-35.0) g/dl RDW 12.5 (11.0-16.0) % Plt Count 296 D (160-400) X10*3/uL MPV 10.3 (9.4-12.3) fL Immature Gran % (Auto) 0.4 (0.0-0.4) % Neut % (Auto) 63.2 (45-73) % Lymph % (Auto) 25.9 (20-40) % [place] % (Auto) 8.7 (2-11) % Eos % (Auto) 1.4 (0-4) % Baso % (Auto) 0.4 (0-2) % Lymph # (Auto) 2.3 (1.2-4.9) X10*3/uL [place] # (Auto) 0.8 (0.1-1.2) X10*3/uL Eos # (Auto) 0.1 (0.0-0.4) X10*3/uL Baso # (Auto) 0.0 (0.0-0.2) X10*3/uL Abs Immat Gran (auto) 0.04 H (0.00-0.03) X10*3/uL Absolute Neuts (auto) 5.7 (2.0-8.3) x10*3/uL Absolute Nucleated RBC 0.000 (0.0-0.012) X10*3/uL Nucleated RBC % (auto) 0.0 (0.0-0.2) /100WBC VBG pH (7.32-7.43) VBG pCO2 mmHg VBG pO2 mmHg VBG HCO3 (22-26) mmol/L VBG O2 Saturation % VBG Base Excess mmol/L Sodium 138 (135-145) mmol/L Potassium 4.3 (3.3-5.1) mmol/L Chloride 104 (96-108) mmol/L Carbon Dioxide 21 L (22-29) mmol/L Anion Gap 17 (12-20) BUN 9 (9-16) mg/dL Creatinine 0.77 (0.5-1.4) mg/dL Estim Creat Clear Calc 75.4 Estimated GFR > 60 Random Glucose 88 (60-115) mg/dL Lactic Acid 1.8 (0.5-2.0) mmol/L Calcium 9.6 D (8.4-10.2) mg/dL Magnesium 2.4 2.3 (1.6-2.6) mg/dL Total Bilirubin 0.5 (0.0-1.0) mg/dL AST 36 H (5-31) U/L ALT 36 H (0-31) U/L Alkaline Phosphatase 88 (39-117) U/L Total Protein 8.0 (6.5-8.0) g/dL Albumin 4.0 (3.5-5.0) g/dL Lipase 33 (8-78) U/L Beta HCG, Quant < 2 mIU/mL Influenza Type A (PCR) NEGATIVE (Negative) Influenza Type B (PCR) NEGATIVE (Negative) RSV RNA Qual (PCR) NEGATIVE (Negative) SARS-CoV-2 RNA (RT-PCR) NEGATIVE (Negative) 01/11/25 Range/Units 17:59 WBC (4.8-10.8) X10*3/uL RBC (4.20-5.50) X10*6/uL Hgb (12.0-16.0) g/dl Hct (37.0-47.0) % MCV (80.0-98.0) fL MCH (27.0-33.0) pg MCHC (31.0-35.0) g/dl RDW (11.0-16.0) % Plt Count (160-400) X10*3/uL MPV (9.4-12.3) fL Immature Gran % (Auto) (0.0-0.4) % Neut % (Auto) (45-73) % Lymph % (Auto) (20-40) % [place] % (Auto) (2-11) % Eos % (Auto) (0-4) % Baso % (Auto) (0-2) % Lymph # (Auto) (1.2-4.9) X10*3/uL [place] # (Auto) (0.1-1.2) X10*3/uL Eos # (Auto) (0.0-0.4) X10*3/uL Baso # (Auto) (0.0-0.2) X10*3/uL Abs Immat Gran (auto) (0.00-0.03) X10*3/uL Absolute Neuts (auto) (2.0-8.3) x10*3/uL Absolute Nucleated RBC (0.0-0.012) X10*3/uL Nucleated RBC % (auto) (0.0-0.2) /100WBC VBG pH 7.60 H* (7.32-7.43) VBG pCO2 23 mmHg VBG pO2 70 mmHg VBG HCO3 23 (22-26) mmol/L VBG O2 Saturation 96.0 % VBG Base Excess 3.8 mmol/L Sodium (135-145) mmol/L Potassium (3.3-5.1) mmol/L Chloride (96-108) mmol/L Carbon Dioxide (22-29) mmol/L Anion Gap (12-20) BUN (9-16) mg/dL Creatinine (0.5-1.4) mg/dL Estim Creat Clear Calc Estimated GFR Random Glucose (60-115) mg/dL Lactic Acid (0.5-2.0) mmol/L Calcium (8.4-10.2) mg/dL Magnesium (1.6-2.6) mg/dL Total Bilirubin (0.0-1.0) mg/dL AST (5-31) U/L ALT (0-31) U/L Alkaline Phosphatase (39-117) U/L Total Protein (6.5-8.0) g/dL Albumin (3.5-5.0) g/dL Lipase (8-78) U/L Beta HCG, Quant mIU/mL Influenza Type A (PCR) (Negative) Influenza Type B (PCR) (Negative) RSV RNA Qual (PCR) (Negative) SARS-CoV-2 RNA (RT-PCR) (Negative) Discharge Plan Discharge Clinical Impression: Pneumonia, Hypoxia, Constipation Patient Disposition: Admitted As Inpatient
[2025-01-11] MEDS: cefTRIAXone sodium 2 GM VIAL IVPUSH (17:56)
[2025-01-11 17:59] LABS: MANUAL DIFF FLAG NO
[2025-01-11 18:09] LABS: VBG Base Excess 3.8 mmol/L; VBG HCO3 23 mmol/L (22-26); VBG pCO2 23 mmHg; VBG pO2 70 mmHg
[2025-01-11 18:16] LABS: Venous Blood Gas Refer to POC result
[2025-01-11 18:20] LABS: Magnesium 2.4 mg/dL (1.6-2.6)
[2025-01-11 18:23] LABS: Basophils Percent Auto 0.4 % (0-2); Eosinophils Absolute Auto 0.1 X10*3/uL (0.0-0.4); Eosinophils Percent Auto 1.4 % (0-4); Hematocrit 40.7 % (37.0-47.0); Hemoglobin 13.7 g/dl (12.0-16.0); Imm Gran Abs Auto 0.04 X10*3/uL (0.00-0.03); Imm Gran Pct Auto 0.4 % (0.0-0.4); Lactic Acid 1.8 mmol/L (0.5-2.0); Lymphocytes Absolute Auto 2.3 X10*3/uL (1.2-4.9); Lymphocytes Percent Auto 25.9 % (20-40); Mean Corpuscular HGB Conc 33.7 g/dl (31.0-35.0); Mean Corpuscular Hemoglobin 31.6 pg (27.0-33.0); Mean Platelet Volume 10.3 fL (9.4-12.3); Monocytes Absolute Auto 0.8 X10*3/uL (0.1-1.2); Monocytes Percent Auto 8.7 % (2-11); Neutrophils Absolute Auto 5.7 x10*3/uL (2.0-8.3); Neutrophils Percent Auto 63.2 % (45-73); Platelet Count 296 X10*3/uL (160-400); Red Blood Count 4.33 X10*6/uL (4.20-5.50); Red Cell Distribution Width 12.5 % (11.0-16.0)
[2025-01-11 18:38] LABS: Influenza A PCR NEGATIVE (Negative); Influenza B PCR NEGATIVE (Negative); Resp Syncy Virus RNA Qual PCR NEGATIVE (Negative); SARS COV2 PCR INHOUSE NEGATIVE (Negative)
[2025-01-11 18:39] LABS: Alanine Aminotransferase 36 U/L (0-31); Alkaline Phosphatase 88 U/L (39-117); Anion Gap 17 (12-20); Aspartate Amino Transferase 36 U/L (5-31); Bilirubin Total 0.5 mg/dL (0.0-1.0); Blood Urea Nitrogen 9 mg/dL (9-16); Calcium 9.6 mg/dL (8.4-10.2); Carbon Dioxide 21 mmol/L (22-29); Chloride 104 mmol/L (96-108); Creatinine Clr Calc Pharmacy 75.4; Estimated Glomerular Filt Rate > 60; Glucose Random 88 mg/dL (60-115); HCG Quantitative < 2 mIU/mL; Lipase 33 U/L (8-78); Magnesium 2.3 mg/dL (1.6-2.6); Potassium 4.3 mmol/L (3.3-5.1); Sodium 138 mmol/L (135-145)
[2025-01-11] MEDS: Promethazine HCL 25 MG/ML VIAL 12.5 MG IM (18:48)
--- NOTE | 2025-01-11 18:59 | PC.NURSE ---
Pt brought into ED from [address], pt was not moving any air, 84% on RA 4L would bring her up to 92-94% see MAR for medication admin, PA at bedside to place IV. Pt currently awaiting results at this time. Pt reporting she feels like she was not ready to be dc when she was. Reporting she has not had a BM since last , has had decreased PO intake at home.
[2025-01-11] MEDS: Doxycycline Hyclate 100 MG in 0.9 % Sodium Chloride 250 ML 166.67 MG IV (19:41)
--- NOTE | 2025-01-11 19:45 | PC.NURSE ---
iv noted to be infiltrated. Rena MUNOZ made aware, currently at bedside to attempt for new u/s iv.
[2025-01-11] MEDS: iohexoL 350 MG/ML 100 ML INFUS..BTL 85 ML IV (20:25)
--- NOTE | 2025-01-11 22:02 | PM.IMHP ---
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 Pt recently hospitalized from 12/31-01/06 where she was treated for RSV and possible ileus. Was seen by General surgery who ordered SBFT which showed contrast in the colon which argued against either SBO or ileus. Patient's soon after began moving her bowels and diet was advanced. Was discharged home on prednisone taper. Since discharge pt continues to complain of increased and unrelenting left lower quadrant pain and pressure. Reports has not had a bowel movement since last , though has been passing gas. Also complains of increased weakness, dizziness, as well as nonproductive cough and wheezing. Has had nasal congestion, ear fullness/ringing, and headache. Also complains of right lower extremity cramping and pain in her right upper thigh that she reports feels similar to when she had previous DVTs. In the ED pt was tachycardic up to 99, tachypneic up to 24, and hypoxic as low as 87% on RA. Labs were significant for mildly elevated AST 36 and ALT 36, and VBG pH 7.6 with pCO2 23 and bicarb 23. No significant electrolyte abnormalities. No leukocytosis. Lactic acid WNL. Tested negative for flu, RSV, COVID. CXR showed increased left basilar opacity that may represent worsening pneumonia or atelectasis. CT of chest showed bilateral lower lobe consolidations concerning for pneumonia. CT of abdomen and pelvis negative for acute findings. No bowel obstruction or large stool burden. Venous duplex of right lower extremity negative for DVT. EKG demonstrated normal sinus rhythm without evidence of significant ST elevations or depressions. Pt was treated with DuoNeb, Mag sulfate, Solu-Medrol, ondansetron, IVF, hydromorphone, promethazine, ceftriaxone, and doxycycline. Pt will be admitted to the hospital for treatment and further evaluation of acute hypoxic respiratory failure in the setting of acute asthma exacerbation with superimposed bilateral pneumonia with sepsis. Review of Systems Review of Systems: Negative except for that which is stated in the [facility] Medical History Fibromyalgia Mild intermittent asthma History of small bowel obstruction Surgical History History of appendectomy H/O breast augmentation S/P cholecystectomy H/O gastric bypass Social History Household Members: Significant Other Housing: Apartment Do you presently have visiting nurse or other home services: No Patient Tobacco Use Status: Former Tobacco user Tobacco use type: Cigarette e-Cigarette/Vaping Use: Never Used Second Hand Smoke Exposure: No Advance Directives: No Advance Directives Information Provided: No service: No Cognitive needs: No Hearing needs: No Vision needs: No Meds Allergies Allergy/AdvReac Type Severity Reaction Status Date / Time hydrocodone [From Vicodin] Allergy Anaphylaxis Verified 01/11/25 17:29 Penicillins Allergy Rash Verified 01/11/25 17:29 Active Medications: Current Medications Acetaminophen (Acetaminophen 325 Mg Tablet) 650 mg PO Q6H PRN PRN Reason: Pain, Mild 1-3,fever,headache Albuterol/Ipratropium (Albuterol/Iprat 2.5/0.5mg 3 Ml Ampul.Neb) 3 ml INHALE RQ4H WHILE AWAKE TAYA Albuterol/Ipratropium (Albuterol/Iprat 2.5/0.5mg 3 Ml Ampul.Neb) 3 ml INHALE Q4H PRN PRN Reason: Wheezing Calcium Carbonate (Calcium Carbonate 750 Mg Tab.Chew) 750 mg PO Q4H PRN PRN Reason: Heartburn Ceftriaxone Sodium (Ceftriaxone Sodium 1 Gm Vial) 1 gm IVPUSH Q24H TAYA Enoxaparin Sodium (Enoxaparin Sodium 40 Mg/0.4 Ml Syringe) 40 mg SUBCUT Q24H TAYA Hydromorphone HCl (Hydromorphone Hcl 1 Mg/Ml Syringe) 1 mg IVPUSH Q4H PRN; Protocol PRN Reason: Pain, Severe (Pain Scale 7-10) Azithromycin 500 mg/ Sodium (Chloride) 250 mls @ 125 mls/hr IV Q24H TAYA Magnesium Hydroxide (Milk Of Magnesia 30 Ml Oral.Susp) 30 ml PO DAILY PRN PRN Reason: Constipation Melatonin (Melatonin 3 Mg Tablet) 6 mg PO BEDTIME PRN PRN Reason: Insomnia Methylprednisolone Sodium Succinate (Methylprednisolone Sod Succ 40 Mg/Ml Vial) 40 mg IVPUSH Q12H TAYA Ondansetron HCl (Ondansetron Hcl 4 Mg/2 Ml Vial) 4 mg IVPUSH Q8H PRN PRN Reason: Nausea and Vomiting Oxymetazoline HCl (Oxymetazoline Hcl 0.05 % Nasal 15 Ml [place]) 2 spray NOSTRIL-B BID PRN PRN Reason: Nasal Congestion Sodium Chloride (0.9 % Sodium Chloride Flush 3 Ml Syringe) 3 ml IVFLUSH QSHIFT [facility] Home Medications ?Medication ?Instructions ?Recorded ?Confirmed ?Last Taken ?Type trazodone 50 mg tablet 50 mg PO BEDTIME PRN Sleep 08/02/24 01/11/25 12/24/24 History gabapentin 600 mg tablet 300 mg PO TID PRN Pain 12/31/24 01/11/25 12/28/24 History melatonin 5 mg tablet 5 mg PO BEDTIME PRN Sleep 12/31/24 01/11/25 Unknown History methocarbamol 750 mg tablet 750 mg PO Q8H PRN Muscle Spasm 12/31/24 01/11/25 12/31/24 07:00 History Physical Exam Vital Signs and Narrative: Vital Signs: Last Vital Signs Temp 98.7 F 01/11/25 20:00 Pulse 85 01/11/25 20:00 Resp 16 01/11/25 20:00 BP 127/77 01/11/25 20:00 Pulse Ox 98 01/11/25 20:00 O2 Del Method Nasal Cannula 01/11/25 20:00 O2 Flow Rate 2 01/11/25 20:00 Oxygen Flow Rate 4 01/11/25 17:27 BMI result Body Mass Index 25.4 General: AOx3, no acute distress Resp: Diffuse bilateral wheezing and rhonchi CVS: S1, S2, regular rhythm, tachycardic GI: LLQ tenderness, +BS, no distention, soft Skin: Warm, dry Neuro: Cranial nerves II-XII grossly intact bilaterally. Motor grossly intact bilaterally Extremities: No edema. Right posterior thigh tenderness Psych: Appropriate affect Results Labs 01/11/25 17:51 01/11/25 17:51 Labs: Laboratory Results - last 24 hr 01/11/25 01/11/25 01/11/25 17:33 17:50 17:51 MCV 94.0 MCH 31.6 MCHC 33.7 RDW 12.5 Plt Count 296 D MPV 10.3 Immature Gran % (Auto) 0.4 Neut % (Auto) 63.2 Lymph % (Auto) 25.9 Mcpherson % (Auto) 8.7 Eos % (Auto) 1.4 Baso % (Auto) 0.4 Lymph # (Auto) 2.3 Mcpherson # (Auto) 0.8 Eos # (Auto) 0.1 Baso # (Auto) 0.0 Abs Immat Gran (auto) 0.04 H Absolute Neuts (auto) 5.7 Absolute Nucleated RBC 0.000 Nucleated RBC % (auto) 0.0 VBG pH VBG pCO2 VBG pO2 VBG HCO3 VBG O2 Saturation VBG Base Excess Anion Gap 17 Estim Creat Clear Calc 75.4 Estimated GFR > 60 Random Glucose 88 Lactic Acid 1.8 Calcium 9.6 D Magnesium 2.4 2.3 Total Bilirubin 0.5 AST 36 H ALT 36 H Alkaline Phosphatase 88 Total Protein 8.0 Albumin 4.0 Lipase 33 Beta HCG, Quant < 2 Influenza Type A (PCR) NEGATIVE Influenza Type B (PCR) NEGATIVE RSV RNA Qual (PCR) NEGATIVE SARS-CoV-2 RNA (RT-PCR) NEGATIVE 01/11/25 17:59 MCV MCH MCHC RDW Plt Count MPV Immature Gran % (Auto) Neut % (Auto) Lymph % (Auto) Mcpherson % (Auto) Eos % (Auto) Baso % (Auto) Lymph # (Auto) Mcpherson # (Auto) Eos # (Auto) Baso # (Auto) Abs Immat Gran (auto) Absolute Neuts (auto) Absolute Nucleated RBC Nucleated RBC % (auto) VBG pH 7.60 H* VBG pCO2 23 VBG pO2 70 VBG HCO3 23 VBG O2 Saturation 96.0 VBG Base Excess 3.8 Anion Gap Estim Creat Clear Calc Estimated GFR Random Glucose Lactic Acid Calcium Magnesium Total Bilirubin AST ALT Alkaline Phosphatase Total Protein Albumin Lipase Beta HCG, Quant Influenza Type A (PCR) Influenza Type B (PCR) RSV RNA Qual (PCR) SARS-CoV-2 RNA (RT-PCR) Assessment and Plan (1) Acute hypoxic respiratory failure: Status: Acute Plan Pt is a 49-year-old female with a PMH significant for?asthma, fibromyalgia, 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 Pt will be admitted to the hospital for treatment and further evaluation of acute hypoxic respiratory failure in the setting of acute asthma exacerbation with superimposed bilateral pneumonia with sepsis. Acute hypoxic respiratory failure in the setting of acute asthma exacerbation with superimposed bilateral pneumonia with sepsis Pt desatting to the 80s on RA, wheezing and rhonchi upon auscultation, CT of chest showing bilateral lower lobe pneumonia Meets sepsis criteria with tachycardia and tachypnea; lactic acid WNL Will treat with ceftriaxone and azithromycin, started 01/11/2025 DuoNebs, Solu-Medrol, guaifenesin Titrate supplemental O2 >92, wean as tolerated Monitor respiratory status Intractable abdominal pain Pt with intractable abdominal pain, nausea but no vomiting x2 weeks Reports extensive hx of multiple abdominal surgeries complicated by SBO x3 CT on 12/31/2024 concerning for possible ileus; pt underwent SBFT that was negative with contrast entering into colon Additional workup included negative GI panel and C diff Repeat CT today negative for acute abdomen Unclear etiology Analgesics and antiemetics Advance diet as tolerated Consider GI consult if symptoms persist URI symptoms Pt with nasal congestion, ear fullness/ringing Afrin p.r.n. x6 doses max Treat additionally as above with antibiotics Peripheral neuropathy Continue gabapentin Full Code Attending:?Dr. Pavon DVT Prophylaxis: Lovenox Pt will require a hospitalization of at least two nights for treatment of?acute hypoxic respiratory failure in the setting of acute asthma exacerbation with superimposed bilateral pneumonia with sepsis. Pt will require hospital level care for administration of IV antibiotics, supplemental oxygen, IV steroids, breathing treatments, and close monitoring of respiratory status. Quality Stroke Does the patient have a stroke diagnosis?: No VTE Prior VTE?: No VTE Risk Level:: Medical - moderate - high VTE Device Contraindication: Treatment Not Indicated VTE Drug Contraindication: N/A - Med Ordered
[2025-01-11] MEDS: Enoxaparin Sodium 40 MG/0.4 ML SYRINGE SUBCUT (22:33)
[2025-01-11] MEDS: bisacodyL 5 MG TABLET.DR 10 MG PO (22:33)
[2025-01-11] MEDS: Azithromycin 500 MG in 0.9 % Sodium Chloride 250 ML 125 MG IV (22:34)
[2025-01-12] VITALS (9 sets, daily range): BP systolic 107–136; BP diastolic 66–80; PULSE 85–107; RESP 16–18; TEMP 36.4–37; O2SAT 92–98
[2025-01-12] MEDS: ondansetron HCL 4 MG/2 ML VIAL IVPUSH ×3 (00:59→18:29)
[2025-01-12] MEDS: guaiFENesin DM 200/20/10 ML 10 ML SYRUP PO ×4 (02:02→20:12)
[2025-01-12] MEDS: HYDROmorphone HCl 1 MG/ML SYRINGE IVPUSH ×5 (03:26→20:12)
[2025-01-12] MEDS: Acetaminophen 325 MG TABLET 650 MG PO (03:27)
--- NOTE | 2025-01-12 03:30 | PC.NURSE ---
Pt medicated for 10/10 abdominal pain with Dilaudid and Tylenol per request. VSS. Pt resting in bed, lights dim, call julian within reach. Pt aware of plan to admit, awaiting room assignment.
[2025-01-12] MEDS: traZODone HCL 50 MG TABLET PO (04:17)
--- NOTE | 2025-01-12 04:53 | PC.NURSE ---
U/S iv to RUE noted to be infiltrated. iv removed and catheter intact. EJ placed to L. neck by MD Michelle, pt tolerated well. report given to FERNANDA Soliz. pt being transported to room 385 at this time.
[2025-01-12 06:54] LABS: MANUAL DIFF FLAG NO
[2025-01-12 07:09] LABS: Basophils Percent Auto 0.2 % (0-2); Hematocrit 38.2 % (37.0-47.0); Hemoglobin 12.8 g/dl (12.0-16.0); Imm Gran Abs Auto 0.03 X10*3/uL (0.00-0.03); Imm Gran Pct Auto 0.5 % (0.0-0.4); Lymphocytes Absolute Auto 1.1 X10*3/uL (1.2-4.9); Mean Corpuscular HGB Conc 33.5 g/dl (31.0-35.0); Mean Corpuscular Hemoglobin 31.4 pg (27.0-33.0); Mean Corpuscular Volume 93.6 fL (80.0-98.0); Mean Platelet Volume 10.5 fL (9.4-12.3); Monocytes Absolute Auto 0.4 X10*3/uL (0.1-1.2); Monocytes Percent Auto 6.7 % (2-11); Neutrophils Absolute Auto 4.6 x10*3/uL (2.0-8.3); Neutrophils Percent Auto 74.6 % (45-73); Platelet Count 308 X10*3/uL (160-400); Red Blood Count 4.08 X10*6/uL (4.20-5.50); Red Cell Distribution Width 12.3 % (11.0-16.0); White Blood Count 6.1 X10*3/uL (4.8-10.8)
[2025-01-12 07:23] LABS: Anion Gap 15 (12-20); Blood Urea Nitrogen 7 mg/dL (9-16); Calcium 9.3 mg/dL (8.4-10.2); Carbon Dioxide 22 mmol/L (22-29); Chloride 106 mmol/L (96-108); Creatinine Clr Calc Pharmacy 84.2; Estimated Glomerular Filt Rate > 60; Glucose Random 98 mg/dL (60-115); Potassium 4.2 mmol/L (3.3-5.1); Sodium 139 mmol/L (135-145)
[2025-01-12] MEDS: methylPREDNISolone Sod Succ 40 MG/ML VIAL IVPUSH ×2 (07:27→20:02)
[2025-01-12] MEDS: 0.9 % Sodium Chloride Flush 3 ML SYRINGE IVFLUSH ×3 (07:28→20:02)
[2025-01-12] MEDS: Albuterol/Iprat 2.5/0.5MG 3 ML AMPUL.NEB INHALE ×4 (08:01→20:35)
--- NOTE | 2025-01-12 08:48 | HO.PM.IMPN ---
Subjective Subjective Date of Service: 01/12/25 Interval History: c/o constapation sob Physical Exam Vital Signs: Vital Signs: Last Vital Signs Temp 98.1 F 01/12/25 07:39 Pulse 94 01/12/25 08:01 Resp 17 01/12/25 08:01 BP 107/70 01/12/25 07:39 Pulse Ox 94 01/12/25 07:39 O2 Del Method Nasal Cannula 01/12/25 07:39 O2 Flow Rate 2 01/12/25 07:39 Oxygen Flow Rate 4 01/11/25 17:27 BMI result Body Mass Index 25.4 Const: Other: General: AO X 3, no acute distress Resp: mild wheeze, normal efort CVS: S1,S2,RRR GI: +BS, NT, no distention Skin: No rash Neuro: motor grossly intact Psych: appropriate affect Objective Data Active Medications Acetaminophen (Acetaminophen 325 Mg Tablet) 650 mg PO Q6H PRN PRN Reason: Pain, Mild 1-3,fever,headache Last Admin: 01/12/25 03:27 Dose: 650 mg Documented By: PINKY Albuterol/Ipratropium (Albuterol/Iprat 2.5/0.5mg 3 Ml Ampul.Neb) 3 ml INHALE RQ4H WHILE AWAKE [facility] Last Admin: 01/12/25 08:01 Dose: 3 ml Documented By: BRIELLE Albuterol/Ipratropium (Albuterol/Iprat 2.5/0.5mg 3 Ml Ampul.Neb) 3 ml INHALE Q4H PRN PRN Reason: Wheezing Calcium Carbonate (Calcium Carbonate 750 Mg Tab.Chew) 750 mg PO Q4H PRN PRN Reason: Heartburn Ceftriaxone Sodium (Ceftriaxone Sodium 1 Gm Vial) 1 gm IVPUSH Q24H [facility] Enoxaparin Sodium (Enoxaparin Sodium 40 Mg/0.4 Ml Syringe) 40 mg SUBCUT Q24H [facility] Last Admin: 01/11/25 22:33 Dose: 40 mg Documented By: SUNITHA Guaifenesin/Dextromethorphan (Guaifenesin Dm 200/20/10 Ml 10 Ml Syrup) 10 ml PO Q4H PRN PRN Reason: Cough Last Admin: 01/12/25 07:39 Dose: 10 ml Documented By: ONELIA Hydromorphone HCl (Hydromorphone Hcl 1 Mg/Ml Syringe) 1 mg IVPUSH Q4H PRN; Protocol PRN Reason: Pain, Severe (Pain Scale 7-10) Last Admin: 01/12/25 07:28 Dose: 1 mg Documented By: ONELIA Azithromycin 500 mg/ Sodium (Chloride) 250 mls @ 125 mls/hr IV Q24H [facility] Last Infusion: 01/12/25 00:34 Dose: Infused Documented By: SUNITHA Magnesium Hydroxide (Milk Of Magnesia 30 Ml Oral.Susp) 30 ml PO DAILY PRN PRN Reason: Constipation Melatonin (Melatonin 3 Mg Tablet) 6 mg PO BEDTIME PRN PRN Reason: Insomnia Methylprednisolone Sodium Succinate (Methylprednisolone Sod Succ 40 Mg/Ml Vial) 40 mg IVPUSH Q12H [facility] Last Admin: 01/12/25 07:27 Dose: 40 mg Documented By: ONELIA Ondansetron HCl (Ondansetron Hcl 4 Mg/2 Ml Vial) 4 mg IVPUSH Q8H PRN PRN Reason: Nausea and Vomiting Last Admin: 01/12/25 00:59 Dose: 4 mg Documented By: SUNITHA Oxymetazoline HCl (Oxymetazoline Hcl 0.05 % Nasal 15 Ml Benedict) 2 spray NOSTRIL-B BID PRN PRN Reason: Nasal Congestion Sodium Chloride (0.9 % Sodium Chloride Flush 3 Ml Syringe) 3 ml IVFLUSH QSHIFT [facility] Last Admin: 01/12/25 07:28 Dose: 3 ml Documented By: ONELIA Labs 01/12/25 05:28 01/12/25 05:28 Labs: Laboratory Results - last 24 hr 01/11/25 01/11/25 01/11/25 17:33 17:50 17:51 MCV 94.0 MCH 31.6 MCHC 33.7 RDW 12.5 Plt Count 296 D MPV 10.3 Immature Gran % (Auto) 0.4 Neut % (Auto) 63.2 Lymph % (Auto) 25.9 Randall % (Auto) 8.7 Eos % (Auto) 1.4 Baso % (Auto) 0.4 Lymph # (Auto) 2.3 Randall # (Auto) 0.8 Eos # (Auto) 0.1 Baso # (Auto) 0.0 Abs Immat Gran (auto) 0.04 H Absolute Neuts (auto) 5.7 Absolute Nucleated RBC 0.000 Nucleated RBC % (auto) 0.0 VBG pH VBG pCO2 VBG pO2 VBG HCO3 VBG O2 Saturation VBG Base Excess Anion Gap 17 Estim Creat Clear Calc 75.4 Estimated GFR > 60 Random Glucose 88 Lactic Acid 1.8 Calcium 9.6 D Magnesium 2.4 2.3 Total Bilirubin 0.5 AST 36 H ALT 36 H Alkaline Phosphatase 88 Total Protein 8.0 Albumin 4.0 Lipase 33 Beta HCG, Quant < 2 Influenza Type A (PCR) NEGATIVE Influenza Type B (PCR) NEGATIVE RSV RNA Qual (PCR) NEGATIVE SARS-CoV-2 RNA (RT-PCR) NEGATIVE 01/11/25 01/12/25 17:59 05:28 MCV 93.6 MCH 31.4 MCHC 33.5 RDW 12.3 Plt Count 308 MPV 10.5 Immature Gran % (Auto) 0.5 H Neut % (Auto) 74.6 H Lymph % (Auto) 18.0 L Randall % (Auto) 6.7 Eos % (Auto) 0.0 Baso % (Auto) 0.2 Lymph # (Auto) 1.1 L Randall # (Auto) 0.4 Eos # (Auto) 0.0 Baso # (Auto) 0.0 Abs Immat Gran (auto) 0.03 Absolute Neuts (auto) 4.6 Absolute Nucleated RBC 0.000 Nucleated RBC % (auto) 0.0 VBG pH 7.60 H* VBG pCO2 23 VBG pO2 70 VBG HCO3 23 VBG O2 Saturation 96.0 VBG Base Excess 3.8 Anion Gap 15 Estim Creat Clear Calc 84.2 Estimated GFR > 60 Random Glucose 98 Lactic Acid Calcium 9.3 Magnesium Total Bilirubin AST ALT Alkaline Phosphatase Total Protein Albumin Lipase Beta HCG, Quant Influenza Type A (PCR) Influenza Type B (PCR) RSV RNA Qual (PCR) SARS-CoV-2 RNA (RT-PCR) Assessment and Plan (1) Acute hypoxic respiratory failure: Status: Acute (2) Pneumonia: Status: Acute Plan Pt is a 49-year-old female with a PMH significant for?asthma, fibromyalgia, 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 Pt will be admitted to the hospital for treatment and further evaluation of acute hypoxic respiratory failure in the setting of acute asthma exacerbation with superimposed bilateral pneumonia with sepsis. Acute hypoxic respiratory failure in the setting of acute asthma exacerbation with superimposed bilateral pneumonia with sepsis Pt desatting to the 80s on RA, wheezing and rhonchi upon auscultation, CT of chest showing bilateral lower lobe pneumonia Meets sepsis criteria with tachycardia and tachypnea; lactic acid WNL continue ceftriaxone and azithromycin, started 01/11/2025 DuoNebs, Solu-Medrol, guaifenesin Titrate supplemental O2 >92, wean as tolerated Intractable abdominal pain Pt with intractable abdominal pain, nausea but no vomiting x2 weeks Reports extensive hx of multiple abdominal surgeries complicated by SBO x3 CT on 12/31/2024 concerning for possible ileus; pt underwent SBFT that was negative with contrast entering into colon Additional workup included negative GI panel and C diff Repeat CT today negative for acute abdomen Unclear etiology Analgesics and antiemetics Advance diet as tolerated Consider GI consult if symptoms persist bowel regimen for constiaption URI symptoms Pt with nasal congestion, ear fullness/ringing Afrin p.r.n. x6 doses max Treat additionally as above with antibiotics Peripheral neuropathy Continue gabapentin Full Code Attending:?Dr. Pavon DVT Prophylaxis: Lovenox Pt will require a hospitalization of at least two nights for treatment of?acute hypoxic respiratory failure in the setting of acute asthma exacerbation with superimposed bilateral pneumonia with sepsis. Pt will require hospital level care for administration of IV antibiotics, supplemental oxygen, IV steroids, breathing treatments, and close monitoring of respiratory status. Quality Stroke Does the patient have a stroke diagnosis?: No VTE Prior VTE?: No VTE Risk Level:: Medical - moderate - high VTE Device Contraindication: Treatment Not Indicated VTE Drug Contraindication: N/A - Med Ordered
--- NOTE | 2025-01-12 10:18 | MHC.CM.PN ---
PT REPORTS SHE LIVES WITH FAMILY AND IS INDEPENDENT WITH CARE SHE HAS NO DME AND NO SERVICES AND [place] [facility] [place] CONCERNED ABOUT PFMLA PAPERWORK, SHE IS AWARE SHE WILL NEED TO DISCUSS IT WITH HER PCP SHE HAS A NEW PT APPT WITH SUJEY MENEZES AT [facility] [place]/25 DCP: HOME NO SERVICES VIA PRIVATE TRANSPORT
--- NOTE | 2025-01-12 12:28 | PHA.MEDREC ---
Addendum entered by Harper Simms [facility] 01/12/25 13:28: Reviewed by pharmacist Original Note: Pharmacy Consult ? Medication Reconciliation Pharmacy has completed the medication reconciliation. Spoke with patient to confirm. She finished cough syrup and prednisone from last admission. She finished methylprednisolone day 3 and azithromycin day 3 yesterday 01/11. She is still taking Cefpodoxime q12h, last had yesterday at 9AM. She reports she takes OTC magnesium and potassium for leg cramps, she did not know doses. She reports she is out of gabapentin, last had 12/24. Patient reported she still had lorazepam at home however last med rec on 12/31 she told this financial writer she ran out 6 weeks prior. [facility] confirmed [facility] fill [facility] 07/2024, no recent claims from our inpatient pharmacy. Leaving off of med rec.
[2025-01-12] MEDS: Enoxaparin Sodium 40 MG/0.4 ML SYRINGE SUBCUT (20:02)
[2025-01-12] MEDS: cefTRIAXone sodium 1 GM VIAL IVPUSH (20:03)
[2025-01-12] MEDS: Azithromycin 500 MG in 0.9 % Sodium Chloride 250 ML 125 MG IV (21:52)
[2025-01-12] MEDS: Fluticasone Propionate Nasal 16 GM SPRAY 1 SPRAY NOSTRIL-B (22:01)
[2025-01-12] MEDS: hydrOXYzine HCL 25 MG TABLET PO (22:01)
[2025-01-12] MEDS: Fluconazole 150 MG TABLET PO (22:01)
[2025-01-12] MEDS: polyethylene glycoL 3350 17 GM POWD.PACK PO (22:01)
[2025-01-13] VITALS (8 sets, daily range): BP systolic 118–135; BP diastolic 61–81; PULSE 89–106; RESP 18; TEMP 36.3–36.6; O2SAT 92–98
[2025-01-13] MEDS: HYDROmorphone HCl 1 MG/ML SYRINGE IVPUSH ×6 (00:31→23:10)
[2025-01-13] MEDS: traZODone HCL 50 MG TABLET PO (00:31)
[2025-01-13] MEDS: guaiFENesin DM 200/20/10 ML 10 ML SYRUP PO ×3 (06:11→17:01)
[2025-01-13] MEDS: Albuterol/Iprat 2.5/0.5MG 3 ML AMPUL.NEB INHALE ×4 (08:12→19:18)
[2025-01-13] MEDS: ondansetron HCL 4 MG/2 ML VIAL IVPUSH ×2 (08:20→17:01)
[2025-01-13] MEDS: 0.9 % Sodium Chloride Flush 3 ML SYRINGE IVFLUSH ×2 (08:20→21:09)
[2025-01-13] MEDS: Fluticasone Propionate Nasal 16 GM SPRAY 1 SPRAY NOSTRIL-B ×2 (08:20→21:05)
[2025-01-13] MEDS: bisacodyL 10 MG SUPP.RECT PR (08:20)
[2025-01-13] MEDS: methylPREDNISolone Sod Succ 40 MG/ML VIAL IVPUSH ×2 (08:20→21:05)
--- NOTE | 2025-01-13 10:54 | P.PNIM_ITS ---
Subjective Subjective Date of Service: 01/13/25 Interval History: c/o constapation sob, still on oxygen Physical Exam 2 Vital Signs: Vital Signs: Last Vital Signs Temp 97.5 F 01/13/25 08:00 Pulse 93 01/13/25 08:12 Resp 18 01/13/25 08:12 BP 132/75 01/13/25 08:00 Pulse Ox 95 01/13/25 08:00 O2 Del Method Room Air 01/13/25 08:00 O2 Flow Rate 2 01/12/25 23:50 Oxygen Flow Rate 4 01/11/25 17:27 BMI result Body Mass Index 25.4 Const: Other: General: AO X 3, no acute distress Resp: some wheezing, rhonchi, normal effort CVS: S1,S2,RRR GI: +BS, NT, no distention Skin: No rash Neuro: motor grossly intact Psych: appropriate affect Objective Data Active Medications Acetaminophen (Acetaminophen 325 Mg Tablet) 650 mg PO Q6H PRN PRN Reason: Pain, Mild 1-3,fever,headache Last Admin: 01/12/25 03:27 Dose: 650 mg Documented By: PINKY Acetaminophen/Butalbital/Caffeine (Butalb/Acetamin/Caff 50/325/40 Tablet) 1 tab PO Q4H PRN PRN Reason: headache Albuterol/Ipratropium (Albuterol/Iprat 2.5/0.5mg 3 Ml Ampul.Neb) 3 ml INHALE RQ4H WHILE AWAKE [facility] Last Admin: 01/13/25 08:12 Dose: 3 ml Documented By: BRIELLE Albuterol/Ipratropium (Albuterol/Iprat 2.5/0.5mg 3 Ml Ampul.Neb) 3 ml INHALE Q4H PRN PRN Reason: Wheezing Calcium Carbonate (Calcium Carbonate 750 Mg Tab.Chew) 750 mg PO Q4H PRN PRN Reason: Heartburn Ceftriaxone Sodium (Ceftriaxone Sodium 1 Gm Vial) 1 gm IVPUSH Q24H [facility] Last Admin: 01/12/25 20:03 Dose: 1 gm Documented By: SAÚL Docusate Sodium (Docusate Sodium 100 Mg Capsule) 100 mg PO DAILY PRN PRN Reason: constipation Enoxaparin Sodium (Enoxaparin Sodium 40 Mg/0.4 Ml Syringe) 40 mg SUBCUT Q24H [facility] Last Admin: 01/12/25 20:02 Dose: 40 mg Documented By: SAÚL Fluticasone Propionate (Fluticasone Propionate Nasal 16 Gm [place]) 1 spray NOSTRIL-B Q12H [facility] Last Admin: 01/13/25 08:20 Dose: 1 spray Documented By: ONELIA Guaifenesin/Dextromethorphan (Guaifenesin Dm 200/20/10 Ml 10 Ml Syrup) 10 ml PO Q4H PRN PRN Reason: Cough Last Admin: 01/13/25 10:48 Dose: 10 ml Documented By: ONELIA Hydromorphone HCl (Hydromorphone Hcl 1 Mg/Ml Syringe) 1 mg IVPUSH Q4H PRN; Protocol PRN Reason: Pain, Severe (Pain Scale 7-10) Last Admin: 01/13/25 10:49 Dose: 1 mg Documented By: ONELIA Hydroxyzine HCl (Hydroxyzine Hcl 25 Mg Tablet) 25 mg PO Q8H PRN PRN Reason: anxiety Last Admin: 01/12/25 22:01 Dose: 25 mg Documented By: SAÚL Azithromycin 500 mg/ Sodium (Chloride) 250 mls @ 125 mls/hr IV Q24H [facility] Last Infusion: 01/13/25 00:59 Dose: Infused Documented By: SAÚL Magnesium Hydroxide (Milk Of Magnesia 30 Ml Oral.Susp) 30 ml PO DAILY PRN PRN Reason: Constipation Melatonin (Melatonin 3 Mg Tablet) 6 mg PO BEDTIME PRN PRN Reason: Insomnia Methylprednisolone Sodium Succinate (Methylprednisolone Sod Succ 40 Mg/Ml Vial) 40 mg IVPUSH Q12H [facility] Last Admin: 01/13/25 08:20 Dose: 40 mg Documented By: ONELIA Ondansetron HCl (Ondansetron Hcl 4 Mg/2 Ml Vial) 4 mg IVPUSH Q8H PRN PRN Reason: Nausea and Vomiting Last Admin: 01/13/25 08:20 Dose: 4 mg Documented By: ONELIA Oxymetazoline HCl (Oxymetazoline Hcl 0.05 % Nasal 15 Ml [place]) 2 spray NOSTRIL- B BID PRN PRN Reason: Nasal Congestion Polyethylene Glycol (Polyethylene Glycol 3350 17 Gm Powd.Pack) 17 gm PO BID PRN PRN Reason: constipation Last Admin: 01/12/25 22:01 Dose: 17 gm Documented By: SAÚL Sodium Chloride (0.9 % Sodium Chloride Flush 3 Ml Syringe) 3 ml IVFLUSH QSHIFT TAYA Last Admin: 01/13/25 08:20 Dose: 3 ml Documented By: ONELIA Trazodone HCl (Trazodone Hcl 50 Mg Tablet) 50 mg PO BEDTIME PRN PRN Reason: Sleep Last Admin: 01/13/25 00:31 Dose: 50 mg Documented By: SAÚL Labs 01/12/25 05:28 01/12/25 05:28 Microbiology Microbiology Results: Microbiology 01/11/25 17:50 Blood Culture - Preliminary Blood - Venous No growth after 24 hours. 01/11/25 17:50 Blood Culture - Preliminary Blood - Venous No growth after 24 hours. 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 Pt will be admitted to the hospital for treatment and further evaluation of acute hypoxic respiratory failure in the setting of acute asthma exacerbation with superimposed bilateral pneumonia with sepsis. Acute hypoxic respiratory failure in the setting of acute asthma exacerbation with superimposed bilateral pneumonia with sepsis Pt desatted to the 80s on RA, less wheezing CT of chest showing bilateral lower lobe pneumonia Meets sepsis criteria with tachycardia and tachypnea; lactic acid WNL continue ceftriaxone and azithromycin, started 01/11/2025 DuoNebs, Solu-Medrol, guaifenesin Titrate supplemental O2 >92, wean as tolerated Intractable abdominal pain Pt with intractable abdominal pain, nausea but no vomiting x2 weeks Reports extensive hx of multiple abdominal surgeries complicated by SBO x3 CT on 12/31/2024 concerning for possible ileus; pt underwent SBFT that was negative with contrast entering into colon Additional workup included negative GI panel and C diff Repeat CT today negative for acute abdomen Unclear etiology Analgesics and antiemetics Advance diet as tolerated Consider GI consult if symptoms persist bowel regimen for constiaption URI symptoms Pt with nasal congestion, ear fullness/ringing Afrin p.r.n. x6 doses max Treat additionally as above with antibiotics Peripheral neuropathy Continue gabapentin Full Code DVT Prophylaxis: Lovenox Ongoing hospitalization for hypoxia, asthma exacerbation and pneumonia ' Quality Stroke Does the patient have a stroke diagnosis?: No VTE Prior VTE?: No VTE Risk Level:: Medical - moderate - high VTE Device Contraindication: Treatment Not Indicated VTE Drug Contraindication: N/A - Med Ordered
[2025-01-13] MEDS: Lactulose 20 GM/30 ML SOLUTION PO (11:49)
[2025-01-13 12:56] LABS: Hemoglobin 12.3 g/dl (12.0-16.0); Mean Corpuscular HGB Conc 33.2 g/dl (31.0-35.0); Mean Corpuscular Hemoglobin 31.6 pg (27.0-33.0); Mean Corpuscular Volume 95.1 fL (80.0-98.0); Mean Platelet Volume 10.4 fL (9.4-12.3); Platelet Count 277 X10*3/uL (160-400); Red Blood Count 3.89 X10*6/uL (4.20-5.50); Red Cell Distribution Width 12.3 % (11.0-16.0); White Blood Count 9.5 X10*3/uL (4.8-10.8)
[2025-01-13 13:14] LABS: Anion Gap 14 (12-20); Blood Urea Nitrogen 8 mg/dL (9-16); Calcium 9.3 mg/dL (8.4-10.2); Carbon Dioxide 25 mmol/L (22-29); Chloride 107 mmol/L (96-108); Creatinine Clr Calc Pharmacy 85.3; Estimated Glomerular Filt Rate > 60; Glucose Random 93 mg/dL (60-115); Potassium 4.2 mmol/L (3.3-5.1); Sodium 142 mmol/L (135-145)
[2025-01-13] MEDS: Calcium Carbonate 750 MG TAB.CHEW PO (17:01)
[2025-01-13] MEDS: cefTRIAXone sodium 1 GM VIAL IVPUSH (21:05)
[2025-01-13] MEDS: Enoxaparin Sodium 40 MG/0.4 ML SYRINGE SUBCUT (21:05)
[2025-01-13] MEDS: Ketorolac Tromethamine 30 MG/ML VIAL IVPUSH (22:06)
[2025-01-13] MEDS: polyethylene glycoL 3350 17 GM POWD.PACK PO (22:09)
[2025-01-13] MEDS: Docusate Sodium 100 MG CAPSULE PO (22:09)
[2025-01-13] MEDS: Azithromycin 500 MG in 0.9 % Sodium Chloride 250 ML 125 MG IV (22:10)
[2025-01-14] VITALS (7 sets, daily range): BP systolic 98–113; BP diastolic 56–75; PULSE 77–93; RESP 16–20; TEMP 36.7; O2SAT 95–98
[2025-01-14] MEDS: guaiFENesin DM 200/20/10 ML 10 ML SYRUP PO ×3 (00:03→15:19)
[2025-01-14] MEDS: traZODone HCL 50 MG TABLET PO (02:18)
[2025-01-14] MEDS: HYDROmorphone HCl 1 MG/ML SYRINGE IVPUSH ×3 (03:39→12:41)
[2025-01-14] MEDS: ondansetron HCL 4 MG/2 ML VIAL IVPUSH ×2 (03:43→12:40)
[2025-01-14] MEDS: predniSONE 20 MG TABLET 40 MG PO (08:01)
[2025-01-14] MEDS: Fluticasone Propionate Nasal 16 GM SPRAY 1 SPRAY NOSTRIL-B (08:05)
[2025-01-14] MEDS: 0.9 % Sodium Chloride Flush 3 ML SYRINGE IVFLUSH (08:06)
[2025-01-14] MEDS: Albuterol/Iprat 2.5/0.5MG 3 ML AMPUL.NEB INHALE ×2 (08:11→15:19)
[2025-01-14] MEDS: polyethylene glycoL 3350 17 GM POWD.PACK PO (10:22)
--- NOTE | 2025-01-14 11:42 | P.PNIM_ITS ---
Subjective Subjective Date of Service: 01/14/25 Interval History: Weaned off O2 still c/o constipation Physical Exam 2 Vital Signs: Vital Signs: Last Vital Signs Temp 98.0 F 01/14/25 07:22 Pulse 89 01/14/25 08:11 Resp 16 01/14/25 08:11 BP 109/73 01/14/25 07:22 Pulse Ox 96 01/14/25 09:13 O2 Del Method Room Air 01/14/25 09:13 O2 Flow Rate 2 01/14/25 07:22 Oxygen Flow Rate 4 01/11/25 17:27 BMI result Body Mass Index 25.4 Const: Other: General: AO X 3, no acute distress Resp: CTA bilateral CVS: S1,S2,RRR GI: +BS, NT, no distention Skin: No rash Neuro: motor grossly intact Psych: appropriate affect Objective Data Active Medications Acetaminophen (Acetaminophen 325 Mg Tablet) 650 mg PO Q6H PRN PRN Reason: Pain, Mild 1-3,fever,headache Last Admin: 01/12/25 03:27 Dose: 650 mg Documented By: PINKY Acetaminophen/Butalbital/Caffeine (Butalb/Acetamin/Caff 50/325/40 Tablet) 1 tab PO Q4H PRN PRN Reason: headache Albuterol/Ipratropium (Albuterol/Iprat 2.5/0.5mg 3 Ml Ampul.Neb) 3 ml INHALE RQ4H WHILE AWAKE [facility] Last Admin: 01/14/25 08:11 Dose: 3 ml Documented By: MANOLO Albuterol/Ipratropium (Albuterol/Iprat 2.5/0.5mg 3 Ml Ampul.Neb) 3 ml INHALE Q4H PRN PRN Reason: Wheezing Calcium Carbonate (Calcium Carbonate 750 Mg Tab.Chew) 750 mg PO Q4H PRN PRN Reason: Heartburn Last Admin: 01/13/25 17:01 Dose: 750 mg Documented By: ONELIA Ceftriaxone Sodium (Ceftriaxone Sodium 1 Gm Vial) 1 gm IVPUSH Q24H [facility] Last Admin: 01/13/25 21:05 Dose: 1 gm Documented By: JAMEE Docusate Sodium (Docusate Sodium 100 Mg Capsule) 100 mg PO DAILY PRN PRN Reason: constipation Last Admin: 01/13/25 22:09 Dose: 100 mg Documented By: JAMEE Enoxaparin Sodium (Enoxaparin Sodium 40 Mg/0.4 Ml Syringe) 40 mg SUBCUT Q24H [facility] Last Admin: 01/13/25 21:05 Dose: 40 mg Documented By: JAMEE Fluticasone Propionate (Fluticasone Propionate Nasal 16 Gm [place]) 1 spray NOSTRIL-B Q12H [facility] Last Admin: 01/14/25 08:05 Dose: 1 spray Documented By: ANN Guaifenesin/Dextromethorphan (Guaifenesin Dm 200/20/10 Ml 10 Ml Syrup) 10 ml PO Q4H PRN PRN Reason: Cough Last Admin: 01/14/25 00:03 Dose: 10 ml Documented By: JAMEE Hydromorphone HCl (Hydromorphone Hcl 1 Mg/Ml Syringe) 1 mg IVPUSH Q4H PRN; Protocol PRN Reason: Pain, Severe (Pain Scale 7-10) Last Admin: 01/14/25 08:01 Dose: 1 mg Documented By: ANN Hydroxyzine HCl (Hydroxyzine Hcl 25 Mg Tablet) 25 mg PO Q8H PRN PRN Reason: anxiety Last Admin: 01/12/25 22:01 Dose: 25 mg Documented By: SAÚL Azithromycin 500 mg/ Sodium (Chloride) 250 mls @ 125 mls/hr IV Q24H [facility] Last Infusion: 01/14/25 00:10 Dose: Infused Documented By: JAMEE Magnesium Hydroxide (Milk Of Magnesia 30 Ml Oral.Susp) 30 ml PO DAILY PRN PRN Reason: Constipation Melatonin (Melatonin 3 Mg Tablet) 6 mg PO BEDTIME PRN PRN Reason: Insomnia Ondansetron HCl (Ondansetron Hcl 4 Mg/2 Ml Vial) 4 mg IVPUSH Q8H PRN PRN Reason: Nausea and Vomiting Last Admin: 01/14/25 03:43 Dose: 4 mg Documented By: JAMEE Oxymetazoline HCl (Oxymetazoline Hcl 0.05 % Nasal 15 Ml [place]) 2 spray NOSTRIL- B BID PRN PRN Reason: Nasal Congestion Polyethylene Glycol (Polyethylene Glycol 3350 17 Gm Powd.Pack) 17 gm PO BID PRN PRN Reason: constipation Last Admin: 01/14/25 10:22 Dose: 17 gm Documented By: ANN Prednisone (Prednisone 20 Mg Tablet) 40 mg PO DAILY [facility] Last Admin: 01/14/25 08:01 Dose: 40 mg Documented By: ANN Sodium Chloride (0.9 % Sodium Chloride Flush 3 Ml Syringe) 3 ml IVFLUSH QSHIFT [facility] Last Admin: 01/14/25 08:06 Dose: 3 ml Documented By: ANN Trazodone HCl (Trazodone Hcl 50 Mg Tablet) 50 mg PO BEDTIME PRN PRN Reason: Sleep Last Admin: 01/14/25 02:18 Dose: 50 mg Documented By: ERIKK Labs 01/13/25 11:33 01/13/25 11:33 Labs: Laboratory Results - last 24 hr 01/13/25 11:33 MCV 95.1 MCH 31.6 MCHC 33.2 RDW 12.3 Plt Count 277 MPV 10.4 Absolute Nucleated RBC 0.000 Nucleated RBC % (auto) 0.0 Anion Gap 14 Estim Creat Clear Calc 85.3 Estimated GFR > 60 Random Glucose 93 Calcium 9.3 Microbiology Microbiology Results: Microbiology 01/11/25 17:50 Blood Culture - Preliminary Blood - Venous No growth after 48 hours. 01/11/25 17:50 Blood Culture - Preliminary Blood - Venous No growth after 48 hours. 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 Pt will be admitted to the hospital for treatment and further evaluation of acute hypoxic respiratory failure in the setting of acute asthma exacerbation with superimposed bilateral pneumonia with sepsis. Acute hypoxic respiratory failure in the setting of acute asthma exacerbation with superimposed bilateral pneumonia on CTwith sepsis Off O2 continue ceftriaxone and azithromycin, started 01/11/2025[facility] [place] DuoNebs, Solu-Medrol, guaifenesin Intractable abdominal pain Pt with intractable abdominal pain, nausea but no vomiting x2 weeks Reports extensive hx of multiple abdominal surgeries complicated by SBO x3 CT on 12/31/2024 concerning for possible ileus; pt underwent SBFT that was negative with contrast entering into colon Additional workup included negative GI panel and C diff Repeat CT today negative for acute abdomen Unclear etiology Analgesics and antiemetics Advance diet as tolerated Consider GI consult if symptoms persist bowel regimen for constiaption Enema URI symptoms Pt with nasal congestion, ear fullness/ringing Afrin p.r.n. x6 doses max Treat additionally as above with antibiotics Peripheral neuropathy Continue gabapentin Full Code DVT Prophylaxis: Lovenox Ongoing hospitalization for hypoxia, asthma exacerbation and pneumonia ' Quality Stroke Does the patient have a stroke diagnosis?: No VTE Prior VTE?: No VTE Risk Level:: Medical - moderate - high VTE Device Contraindication: Treatment Not Indicated VTE Drug Contraindication: N/A - Med Ordered
--- NOTE | 2025-01-14 12:07 | MHC.CM.PN ---
Addendum entered by Michelle Talley RN 01/14/25 15:40: Patient medically cleared for dc home self care via private transport. Original Note: Per MD rounds patient not medically cleared for dc. CM will continue to follow.
--- NOTE | 2025-01-14 15:29 | P.DS_ITS ---
DS: Providers Provider Date of Service: 01/14/25 Date of admission: 01/11/25 21:38 Date of discharge: 01/14/25 Primary care physician: Leslie Physician DS: Diagnosis Discharge Diagnosis (1) Acute hypoxic respiratory failure: Status: Acute (2) Pneumonia: Status: Acute DS: Summary Hospital Course Hospital Course: The patient is a 49-year-old female with a history of asthma, fibromyalgia, pre vious DVTs (no longer on anticoagulation), anxiety, and multiple abdominal surgeries, including three gastric bypass procedures, cholecystectomy, appendectomy, and three episodes of small bowel obstruction. She presents with shortness of breath, cough, nausea, and abdominal pain for two weeks. She is being admitted for further evaluation and treatment of acute hypoxic respiratory failure due to an acute asthma exacerbation with superimposed bilateral pneumonia and sepsis. Her acute hypoxic respiratory failure is secondary to an asthma exacerbation and pneumonia, confirmed on CT. She initially required supplemental oxygen, which has since been weaned off, and she is now maintaining 98% saturation on room air. She has been on ceftriaxone and azithromycin since 01/11/2025, with plans to transition to Ceftin upon discharge for a total of seven days of antibiotics. Azithromycin has been completed after five days. She has also completed a five- day course of steroids, and her lung exam is now clear. She has had persistent abdominal pain and nausea for two weeks without vomiting. Given her history of multiple abdominal surgeries and prior small bowel obstructions, a CT scan on 12/31/2024 raised concern for a possible ileus. However, a small bowel follow-through study showed contrast progressing into the colon, ruling out obstruction. Additional workup, including a GI panel and C. difficile testing, was negative. A repeat CT scan today showed no evidence of acute pathology. Her symptoms were attributed to severe constipation, which improved after multiple interventions, including an enema that resulted in a large bowel movement, resolving her abdominal pain. She also reports upper respiratory symptoms, including nasal congestion and ear fullness with ringing. These are being managed with Afrin as needed for up to six doses, along with her antibiotic regimen. For peripheral neuropathy, she will continue gabapentin. She is comfortable going home. Time Attestation Discharge Coordination Time (in mins): 40 Quality: Safe Use of Opioids Does Pt have an Active Cancer Diagnosis on the Problem List?: No Quality: Stroke Does the patient have a stroke diagnosis?: No Physical Exam Vital Signs: Vital Signs: Last Vital Signs Temp 98.0 F 01/14/25 15:20 Pulse 90 01/14/25 15:20 Resp 18 01/14/25 15:20 BP 113/75 01/14/25 15:20 Pulse Ox 98 01/14/25 15:20 O2 Del Method Room Air 01/14/25 09:13 O2 Flow Rate 2 01/14/25 07:22 Oxygen Flow Rate 4 01/11/25 17:27 BMI result Body Mass Index 25.4 DS: Data Data Completed and Pending Labs on day of discharge: Preliminary micro results at discharge 01/11/25 17:50 Blood Culture - Preliminary Blood - Venous No growth after 48 hours. 01/11/25 17:50 Blood Culture - Preliminary Blood - Venous No growth after 48 hours. Discharge Plan Discharge Anticipated Discharge Date/Time: 01/14/25 15:31 Patient Disposition: Home, Self-Care Discharge Diagnosis: Acute hypoxic respiratory failure due to pneumonia, asthma Referrals: Physician,None [Primary Care Provider] - 1 Week Discharge Medications: New cefuroxime axetil 500 mg tablet 500 mg PO BID 2 Days Qty: 4 0RF Continued albuterol sulfate 2.5 mg /3 mL (0.083 %) solution for nebulization 2.5 mg inhalation Q4H PRN (Reason: Shortness Of Breath Or Wheezing) polyethylene glycol 3350 [Miralax] 17 gram/dose powder 17 g PO BID PRN (Reason: constipation) gabapentin 600 mg Tablet 300 mg PO TID PRN (Reason: Pain) melatonin 5 mg tablet 5 mg PO BEDTIME PRN (Reason: Sleep) methocarbamol 750 mg tablet 750 mg PO Q8H PRN (Reason: Muscle Spasm) docusate sodium [Colace] 100 mg capsule 100 mg PO DAILY PRN (Reason: constipation) Qty: 30 0RF lidocaine [Lidocaine Pain Relief] 4 % Adhesive Patch,Medicated 1 patch transdermal DAILY Qty: 5 0RF Protocol: Apply to: Apply to: Affected area loratadine 10 mg Tablet 10 mg PO DAILY Qty: 7 0RF ondansetron 4 mg tablet,disintegrating 4 mg PO Q8H PRN (Reason: nausea and vomiting) Qty: 15 0RF jvzqdkdcon-ceotoozbhcmju-vczi 50-325-40 mg tablet 1 tab PO Q4-6H PRN (Reason: headache) Qty: 10 0RF hydroxyzine HCl 25 mg tablet 25 mg PO Q8H PRN (Reason: anxiety) Qty: 15 0RF fluticasone propionate 50 mcg/actuation spray,suspension 1 spray intranasal Q12H Qty: 16 0RF Rx Instructions: administer into each nostril trazodone 50 mg tablet 50 mg PO BEDTIME PRN (Reason: Sleep) albuterol sulfate 90 mcg/actuation HFA aerosol inhaler 2 puff inhalation Q6H PRN (Reason: shortness of breath or wheezing) Qty: 8.5 0RF Discontinued cefpodoxime 200 mg tablet 200 mg PO Q12H Qty: 14 0RF Rx Instructions: must administer with a meal/food azithromycin 250 mg tablet See Rx Instructions PO .COMPLEX Qty: 6 0RF Patient Comments: finished day 3 on 01/11/25 Rx Instructions: For 250 mg dose pack: take 500 mg today (day 1), then 250 mg for 4 days (days 2-5) PO methylprednisolone 4 mg tablets,dose pack See Rx Instructions PO PER PKG DIR Qty: 21 0RF Patient Comments: finished day 3 on 01/11/25 Rx Instructions: 6 tabs on day 1, 5 tabs on day 2, 4 tabs on day 3, 3 tabs on day 4, 2 tabs on day 5, 1 tab on day 6. Discharge Orders: Discharge Order (Routine); Ordered 01/14/25 Ordered By: Alonso Melgoza Diet: Advance to usual diet Activity on Discharge: As tolerated Stand Alone Forms: Patient Portal Discharge page Print Language: Nepalese Care Plan Goals: recovery from acute hypoxic respriatory failure pneumonia, asthma and constipation Health Concerns: Acute hypoxic respiratory failure, pneumonia, asthma exacerbation, constipation, Plan of Treatment: Take Cefuroxime as directed and follow up with your doctor in a week Assessment: see above
--- NOTE | 2025-01-15 13:44 | P.CDIM_ITS ---
PROVIDER RESPONSE TEXT: To clarify, the appropriate diagnosis supported by the clinical indicators: Moderate persistent QUERY TEXT: PHYSICIAN'S DOCUMENTATION REQUEST Date of Query: 01/14/2025 09:16 AM EST Patient Name: Marcy Gold Admit Date: 01/12/2025 Dear Alonso Melgoza MD, A review of the medical record indicates additional documentation may be needed. Please review below and update the documentation accordingly. Progress note 3/2 - Acute hypoxic respiratory failure in the setting of acute asthma exacerbation superimposed bilateral pneumonia with sepsis. DuoNebs, Solumedrol, guaifenesin Based on the above, please clarify in the Progress Notes further specificity regarding the type of as thma: Mild intermittent Mild persistent Moderate persistent Severe persistent Exercise induced Other (explain) Clinically unable to determine (explain) Thank you, Joan Santiago, CCS, CDIS Use of terms such as suspected, likely, concern for, or probable (associated with a specific diagnosi s that is being evaluated, monitored, or treated as if it exists) are acceptable and can be coded in the inpatient se tting, when documented at the time of discharge. Please use your independent medical judgment in providing your response. THIS QUERY IS PART OF THE PERMANENT MEDICAL RECORD
== END 2025-01-14 16:28 | disposition home or self-care (01) | DRG 720 ==
LOC: HO.ED 21:56 → HO.EDOVER 22:12 → HO.S3 01-12 04:17
PROVIDERS: Physician Assistant Medical; Admitting Provider Student in an Organized Health Care Education/Training Program; Emergency Provider Emergency Medicine; Visit Provider Internal Medicine
DX: A41.9 Sepsis, unspecified organism (principal); J96.01 Acute respiratory failure with hypoxia; J18.9 Pneumonia, unspecified organism; J45.41 Moderate persistent asthma with (acute) exacerbation; K59.00 Constipation, unspecified; M79.7 Fibromyalgia; G62.9 Polyneuropathy, unspecified; Z20.822 Contact with and (suspected) exposure to COVID-19; Z86.718 Personal history of other venous thrombosis and embolism; Z98.84 Bariatric surgery status; Z87.891 Personal history of nicotine dependence; Z79.51 Long term (current) use of inhaled steroids; Z79.899 Other long term (current) drug therapy
CPT/HCPCS: 0241U; 36415; 71045; 71260; 74177; 80048; 80053; 82803; 83605; 83690; 83735; 84702; 85025; 85027; 87040; 93005; 93971; 94640; 99285; J0456; J0696; J1171; J1650; J1885; J2405; J2550; J2919; J3475; Q9967

== ENCOUNTER → 2025-01-11 17:28 | Outpatient (BNV) | payer OTHER, SELFPAY | PROVIDERS: Emergency Provider Emergency Medicine; Visit Provider Radiology Diagnostic Radiology | DX: R10.9 Unspecified abdominal pain (principal); R91.8 Other nonspecific abnormal finding of lung field; R05.9 Cough, unspecified | CPT/HCPCS: 71045; 71260; 74177; 93971 ==

== ENCOUNTER → 2025-01-11 17:28 | Outpatient (BNV) | payer OTHER, SELFPAY | PROVIDERS: Admitting Provider Student in an Organized Health Care Education/Training Program; Emergency Provider Emergency Medicine; Visit Provider Internal Medicine Cardiovascular Disease | DX: R06.02 Shortness of breath (principal) | CPT/HCPCS: 93010 ==

== ENCOUNTER → 2025-01-11 21:38 | Outpatient (BNV) | payer OTHER, SELFPAY | PROVIDERS: Admitting Provider Student in an Organized Health Care Education/Training Program; Emergency Provider Emergency Medicine; Visit Provider Student in an Organized Health Care Education/Training Program | DX: J96.01 Acute respiratory failure with hypoxia (principal); J18.9 Pneumonia, unspecified organism | CPT/HCPCS: 99223; 99232 ==

== ENCOUNTER 2025-01-17 14:03 | Outpatient (AMB) | payer OTHER, SELFPAY ==
--- NOTE | 2025-01-17 14:15 | MHC.PC.OV ---
Vital Signs 01/17/25 14:17 Height 5 ft 2 in Weight 156 lb 8 oz BMI 28.6 BP 130/70 Blood Pressure Location Lt brachial Position Sitting Pulse 102 H Pulse Source Pulse Oximeter Temp 97.3 F Temp Source Temporal Artery Scan Pulse Oximetry (%) 96 Oxygen Delivery Method Room Air Intake Visit Reasons: [facility] 3/3 difficulty breathing and abdominal pain Intake Note: Patient is here for hospital discharge follow up. Patient was discharged from [facility] on 01/14/25. 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[employer] Reading Teacher: Present Accompanied by: Spouse Allergies hydrocodone [From Vicodin] Allergy (Verified 01/17/25 14:23) Anaphylaxis Penicillins Allergy (Verified 01/17/25 14:23) Rash Medication List - Last Reconciled 01/17/25 by OSCAR Lyon albuterol sulfate 2.5 mg inhalation Q4H PRN albuterol sulfate 90 mcg/actuation 2 puffs inhalation Q6H PRN pgimzrlcqy-gakllylnykgig-fmyn 50-325-40 mg 1 tab PO Q4-6H PRN cefuroxime axetil 500 mg PO BID 2 days docusate sodium (Colace) 100 mg PO DAILY PRN fluticasone propionate 50 mcg/actuation 1 spray intranasal Q12H gabapentin 300 mg PO TID PRN hydroxyzine HCl 25 mg PO Q8H PRN lidocaine 4% (Lidocaine Pain Relief) 1 patch See Protocol transdermal DAILY loratadine 10 mg PO DAILY melatonin 5 mg PO BEDTIME PRN methocarbamol 750 mg PO Q8H PRN ondansetron 4 mg PO Q8H PRN polyethylene glycol 3350 (Miralax) 17 grams PO BID PRN trazodone 50 mg PO BEDTIME PRN Tobacco use date assessed: 01/17/25 Dental Screening Dental Screen Date: 01/11/25 HPI [facility] 3/3 difficulty breathing and abdominal pain HPI Details The patient is a 49-year-old female presenting post [facility] admission The patient was last seen in office on 01/11/2025. At that visit the patient was sent to the ER via ambulance for concerns of acute abdomen Prior to that visit, the patient was treated at [facility] for hypoxic respiratory failure, asthma exacerbation secondary to RSV The patient was also worked up for possible bowel obstruction, due to complaints of abdominal pain, constipation and her history of multiple bowel obstructions-CT scan on 12/31/2024 raised concern for possible ileus. However a tderv-zdzxo-apbyen-through study showed contrast progressing into the colon, ruling out obstruction Two days after being discharged, the patient went to the urgent care with concerns of respiratory distress, chest x-ray was completed and the patient was started on antibiotics for pneumonia The patient was seen in office 2 days after urgent care 01/11/2025. The patient was teary-eyed, grimacing and describing severe abdominal pain. Light palpation to abdomen illicit severe response. The patient also appeared to be in phcc-pd-[id number] respiratory distress. As a result, the patient was sent to [facility] ED for evaluation. Today's visit: The patient reports that she has not moved her bowels since she left the hospital. Reports that she has not eating anything and only has been drinking due to her abdominal pain Reports that she would like something for the pain and that the lidocaine patch is falling off and she would like something stronger Discussed with patient that due to her severe constipation she is not a candidate for narcotics The patient reports that she also can not stopped burping and she feels like her inside is twisting Omeprazole 40 mg daily ordered-discussed with patient that a referral will be placed for GI The patient reports that her breathing has been terrible Reports that she is almost out of her medication for her nebulizer and reports that she is also using the rescue inhaler Advair Diskus 250-50 mcg/dose 1 inhalation b.i.d. ordered. We will put in a pulmonary referral; patient reports that she was recommended to see Dr. Vu [facility] Medical History (Updated 01/18/25 @ 00:04 by OSCAR Lyon) Fibromyalgia History of small bowel obstruction Surgical History History of appendectomy H/O breast augmentation S/P cholecystectomy H/O gastric bypass Family History Other Mental health disorder Social History Household Members: Significant Other Housing: House Do you presently have visiting nurse or other home services: No Alcohol intake: never Patient Tobacco Use Status: Former Tobacco user Tobacco use type: Cigarette e-Cigarette/Vaping Use: Never Used Second Hand Smoke Exposure: Yes service: No Cognitive needs: No Hearing needs: No Vision needs: No Questionnaire Thrive Questionnaire Date Thrive assessed: 01/11/25 I am a: Patient What is your living situation today?: I have a steady place to live Within the past 12 months, did the food you bought not last and you didn't have the money to get more?: I choose not to answer this question Within the past 12 months, did you worry whether your food would run out before you got money to buy more?: Sometimes True Do you have trouble paying for medicines?: No Do you have trouble getting transportation to medical appointments?: No Do you have trouble paying your heating and electricity bill?: No Do you have trouble taking care of your child, family member or friend?: No Do you have trouble with day-to-day activities such as bathing, preparing meals, shopping, managing finances, etc.?: No Are you currently unemployed and looking for a job?: No Are you interested in more education?: No Please select the resources that you would like help with: Food Currently or been in a relationship where the following occur: No concerns reported THRIVE Score: 1 DONTRELL-7 AMB Questionnaire DONTRELL-7 Date DONTRELL - 7 assessed: 01/11/25 Source: Developed by Drs. Charli Vizcaino, Roseanne Sinclair, Tico Vegas and colleagues, with an educational kalee from [employer]. Review of Systems Const Details: Denies chills, Denies fatigue, Denies fever(s), Denies headache(s) and Denies weakness HEENT Denies change in vision, Denies dizziness, Denies headache(s), Denies hearing loss, reports nasal congestion, Denies sinus pain, Denies sinus pressure and Denies sore throat Card Denies chest pain, Denies lightheadedness, reports dyspnea and Denies other (palpitations) Resp Reports cough, reports dyspnea and reports wheezing GI + abdominal pain (feels like lower abdomen is twitching, worse on the right side), Denies melena, Denies hematochezia, Denies change in bowel habits, +dyspepsia and +nausea, reports constant burping Denies hematuria and Denies dysuria Physical exam (Primary Care) Vital Signs: Last Vital Signs Temp 97.3 F 01/17/25 14:17 Pulse 102 H 01/17/25 14:17 BP 130/70 01/17/25 14:17 Pulse Ox 96 01/17/25 14:17 Oxygen Delivery Method Room Air 01/17/25 14:17 BMI result Body Mass Index 28.6 Tobacco/Smoking Status: Tobacco use Status Tobacco use date assessed 01/17/25 01/17/25 14:21 Patient Tobacco Use Status Former Tobacco user 01/17/25 14:21 Tobacco use type Cigarette 01/17/25 14:21 e-Cigarette/Vaping Use Never Used 01/17/25 14:21 Thrive Assessment: Date of Thrive Assessment Date Thrive assessed 01/11/25 01/17/25 14:21 Currently or been in a relationship where the following occur: No concerns reported Const Other: General: no acute distress, well developed, alert and awake Nutritional Appearance: well nourished Orientation/consciousness: patient oriented x3 HENMT Head: Yes normocephalic and Yes atraumatic Ears: hearing grossly normal bilaterally and TM's normal bilaterally General nose exam: Normal external nose present and he nares present Mouth: Normal oral and palatal mucosa present and moist mucous membranes Teeth and gingiva: dentition normal Throat: Yes oropharynx normal Eyes Pupils: Equal, round and reactive pupils present and Pupil accommodation reflex normal EOM: EOMs intact bilaterally Neck Neck: Yes normal visual inspection, Yes no lymphadenopathy and Yes trachea midline Thyroid: Thyroid normal Carotids: no bruits Lymphatic: no lymphadenopathy noted Chest Chest palpation & inspection: normal inspection of the chest Resp Effort & Inspection: mild increase in respiratory effort, able to speak in full sentences Auscultation: clear to auscultation bilaterally Cardio Rate: regular rate Rhythm: regular rhythm Heart sounds: S1 normal heart sound present, S2 normal heart sound present, no gallops, no murmurs and no rubs Bruits: no abdominal aortic bruits and no carotid bruits GI Palpation (GI): diffuse abdominal tenderness Auscultation: normal bowel sounds General: Yes no CVA tenderness Coding Level of Care Code Est Pt Level 4 (19848) Diagnoses Heart burn R12 Moderate persistent asthma with status asthmaticus J45.42 Asthma complication type: with status asthmaticus Pneumonia of lower lobe due to infectious organism, unspecified laterality J18.9 Laterality: unspecified laterality Lung location: lower lobe of lung Pneumonia type: due to unspecified organism Chronic idiopathic constipation K59.04 Constipation type: chronic idiopathic constipation Generalized abdominal pain R10.84 Abdominal location: generalized Time Spent (min) 39 Assessment & Plan Assessment & Plan (1) Heart burn: Code(s): R12 - Heartburn Category: Medical Plan: Omeprazole 40 mg ordered Reinforced dietary restriction (2) Moderate persistent asthma: Code(s): J45.40 - Moderate persistent asthma, uncomplicated Category: Medical Qualifiers: Asthma complication type: with status asthmaticus Qualified Code(s): J45.42 - Moderate persistent asthma with status asthmaticus Plan: Refilled nebulizer supplies, Advair Diskus 250-50 mcg inhalation b.i.d. ordered and pulmonary referral placed (3) Pneumonia: Code(s): J18.9 - Pneumonia, unspecified organism Category: Medical Qualifiers: Laterality: unspecified laterality Lung location: lower lobe of lung Pneumonia type: due to unspecified organism Qualified Code(s): J18.9 - Pneumonia, unspecified organism Plan: Patient completed treatment for pneumonia. She continued to have respiratory flare-up, concern for uncontrolled asthma-Advair Diskus 250-50 mcg inhalation b.i.d. ordered (4) Constipation: Code(s): K59.00 - Constipation, unspecified Category: Medical Qualifiers: Constipation type: chronic idiopathic constipation Qualified Code(s): K59.04 - Chronic idiopathic constipation Plan: Patient reports that she has not moved her bowels for 3 days. Reports that she has not been eating either. Reports taking Colace once a day and MiraLax b.i.d. Colace was increased to b.i.d., senna tabs b.i.d. p.r.n. ordered and the patient was encouraged to increase dietary fiber and fluids intake. We will refer the patient to GI for further evaluation (5) Abdominal pain: Code(s): R10.9 - Unspecified abdominal pain Category: Medical Qualifiers: Abdominal location: generalized Qualified Code(s): R10.84 - Generalized abdominal pain Plan: Patient is complaining of twisting pain in her lower abdomen, worse on the right side. Diffuse pain to palpation. The patient was noted in the hospital to have severe constipation. The patient was encouraged to comply with laxatives. GI referral placed Orders: Referrals Gastroenterology Referral K59.04 - Chronic idiopathic constipation, R10.84 - Generalized abdominal pain, R12 - Heartburn, Z87.19 - Personal history of other diseases of the digestive system Pulmonology Referral J45.31 - Mild persistent asthma with (acute) exacerbation, J45.42 - Moderate persistent asthma with status asthmaticus Medications: New polyethylene glycol 3350 (Miralax) 17 grams PO BID PRN 119 grams 3RF constipation sennosides (Senna Lax) 8.6 mg PO BID PRN 60 tabs 3RF constipation K59.04 - Chronic idiopathic constipation fluticasone propion-salmeterol 250-50 mcg/dose (Advair Diskus) 1 inh inhalation BID 60 ea 3RF J45.40 - Moderate persistent asthma, uncomplicated albuterol sulfate 2.5 mg (3 mL) inhalation Q4H PRN 90 mL 3RF Shortness Of Breath Or Wheezing J45.40 - Moderate persistent asthma, uncomplicated omeprazole 40 mg PO DAILY 60 caps 3RF R12 - Heartburn Changed From docusate sodium (Colace) 100 mg PO DAILY PRN 30 caps 0RF constipation To docusate sodium (Colace) 100 mg PO BID PRN 60 caps 3RF constipation
[2025-01-17 14:17] VITALS: BP 130/70; PULSE 102; TEMP 36.3; O2SAT 96; BMI 28.6
--- OUTSIDE RECORDS SUMMARY | 2025-01-17 17:12 | XMS_ITS | Clinical Summary ---
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
--- OUTSIDE RECORDS SUMMARY | 2025-01-17 17:12 | XMS_ITS | Clinical Summary ---
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
== END 2025-01-17 15:04 | disposition home or self-care (01) ==
DX: R12 Heartburn (principal); J45.42 Moderate persistent asthma with status asthmaticus; J18.9 Pneumonia, unspecified organism; K59.04 Chronic idiopathic constipation; R10.84 Generalized abdominal pain

== ENCOUNTER 2025-01-31 15:21 | Outpatient (AMB) | payer OTHER, SELFPAY ==
[2025-01-31 15:26] VITALS: BP 106/72; PULSE 94; TEMP 36.9; O2SAT 96; BMI 29.4
--- NOTE | 2025-01-31 15:26 | A.OFFPC_ITS ---
Vital Signs 01/31/25 15:26 Height 5 ft 2 in Weight 160 lb 9.6 oz BMI 29.4 BP 106/72 Blood Pressure Location Lt brachial Position Sitting Pulse 94 Pulse Source Pulse Oximeter Temp 98.4 F Temp Source Oral Pulse Oximetry (%) 96 Oxygen Delivery Method Room Air Intake Visit Reasons: abdominal pain Program And Research Coordinator Required: No Accompanied by: Significant Other Allergies hydrocodone [From Vicodin] Allergy (Verified 01/31/25 17:03) Anaphylaxis Penicillins Allergy (Verified 01/31/25 17:03) Rash Medication List - Last Reconciled 01/31/25 by OSCAR Lyon albuterol sulfate 90 mcg/actuation 2 puffs inhalation Q6H PRN albuterol sulfate 2.5 mg (3 mL) inhalation Q4H PRN benzonatate 200 mg PO BID PRN 30 days [id number] 50-325-40 mg 1 tab PO Q4-6H PRN dicyclomine 20 mg (2 x 10 mg) PO QID PRN 30 days docusate sodium (Colace) 100 mg PO BID PRN fluticasone propion-salmeterol 250-50 mcg/dose (Advair Diskus) 1 inh inhalation BID fluticasone propionate 50 mcg/actuation 1 spray intranasal Q12H gabapentin 300 mg PO TID PRN hydroxyzine HCl 25 mg PO Q8H PRN lactulose 15 mL PO BEDTIME PRN 30 days lidocaine 4% (Lidocaine Pain Relief) 1 patch See Protocol transdermal DAILY loratadine 10 mg PO DAILY lorazepam 0.5 mg PO Q6H PRN melatonin 5 mg PO BEDTIME PRN methocarbamol 750 mg PO Q8H PRN nebulizer and compressor (All-In-One Nebulizer System) As directed omeprazole 40 mg PO DAILY ondansetron 4 mg PO Q8H PRN polyethylene glycol 3350 (Miralax) 17 grams PO BID PRN sennosides (Senna Lax) 8.6 mg PO BID PRN trazodone 50 mg PO BEDTIME PRN Tobacco use date assessed: 01/31/25 Dental Screening Dental Screen Date: 01/31/25 Did you have a dental visit in the last 12 months?: Yes Did you have a dental problem in the last 6 months where you did not have access to dental care?: No Was dental information given to patient?: Patient has dentist HPI abdominal pain HPI Details The patient is a 49 year old female with significant past medical history of moderate persistent asthma, h/o gastric bypass, history of small bowel obstruction, s/p cholecystectomy, situational anxiety, panic attacks, and asthma The patient is presenting with c/o abdominal pain, accompanied by her Reports that she had NO BM for six days The patient reports that she started having extreme lower back four days ago On exam; diffused abdominal pain, bowel sounds hyperactive. Abdominal semi-firm and distended The patient also reports that she has not been able to breath out of her nose Bilateral nostrils erythematous and boggy turbinates present Breath sounds clear to auscultation-The patient is speaking in full sentences The patient was recommended to go back to the ER due to the possibility of acute abdomen Spoke with the patient for days ago and she complained that about constipation Lactulose was added to her regimen and Colace was changed to b.i.d.-without any success [facility] Medical History Fibromyalgia History of small bowel obstruction Surgical History History of appendectomy H/O breast augmentation S/P cholecystectomy H/O gastric bypass Family History Other Mental health disorder Social History Household Members: Significant Other Housing: House Do you presently have visiting nurse or other home services: No Alcohol intake: never Patient Tobacco Use Status: Former Tobacco user Tobacco use type: Cigarette Smoked in Last 30 Days: No e-Cigarette/Vaping Use: Never Used Second Hand Smoke Exposure: Yes Use of substances other than those prescribed or required for medical reasons: No Advance Directives: No Advance Directives Information Provided: No Do you have a plan to hurt others: No Plan Patient : No service: No Cognitive needs: No Hearing needs: No Vision needs: No Questionnaire PHQ-9 Over the last 2 weeks, how often have you been bothered by any of the following problems? 1. Little interest or pleasure in doing things: several days 2. Feeling down, depressed, or hopeless: several days 3. Trouble falling or staying asleep, or sleeping too much: nearly every day 4. Feeling tired or having little energy: nearly every day 5. Poor appetite or overeating: several days 6. Feeling bad about yourself - or that you are a failure or have let yourself or your family down: nearly every day 7. Trouble concentrating on things, such as reading the newspaper or watching television: more than half the days 8. Moving or speaking so slowly that other people could have noticed. Or the opposite - being so fidgety or restless that you have been moving around a lot more than usual: nearly every day 9. Thoughts that you would be better off or of hurting yourself in some way: not at all Total score: 17 Depression Screening Interpretation: Positive Depression Screening Done: Yes 40039 - PHQ-9 Billing: Yes Source: Developed by Drs. Charli Vizcaino, Roseanne Sinclair, Tico Vegas and colleagues, with an educational kalee from [employer]. Thrive Questionnaire Date Thrive assessed: 01/31/25 I am a: Patient What is your living situation today?: I have a steady place to live Within the past 12 months, did the food you bought not last and you didn't have the money to get more?: I choose not to answer this question Within the past 12 months, did you worry whether your food would run out before you got money to buy more?: Sometimes True Do you have trouble paying for medicines?: No Do you have trouble getting transportation to medical appointments?: No Do you have trouble paying your heating and electricity bill?: No Do you have trouble taking care of your child, family member or friend?: No Do you have trouble with day-to-day activities such as bathing, preparing meals, shopping, managing finances, etc.?: No Are you currently unemployed and looking for a job?: No Are you interested in more education?: No Please select the resources that you would like help with: Food Currently or been in a relationship where the following occur: No concerns reported THRIVE Score: 1 AUDIT C Alcohol Use Questionnaire (AUDIT-C) 1. How often do you have a drink containing alcohol?: Monthly or less 2. How many drinks containing alcohol do you have on a typical day when you are drinking?: 1 or 2 3. How often do you have six or more drinks on one occasion?: Never Total Score: 1 DONTRELL-7 AMB Questionnaire DONTRELL-7 Date DONTRELL - 7 assessed: 01/31/25 Feeling nervous, anxious, or on edge: 3 = Nearly every day Not being able to stop or control worryin = Nearly every day Worrying too much about different things: 3 = Nearly every day Trouble relaxin = Nearly every day Being so restless that it is hard to sit still: 3 = Nearly every day Becoming easily annoyed or irritable: 3 = Nearly every day Feeling afraid as if something awful might happen: 3 = Nearly every day Total DONTRELL-7 score (0-4 normal; 5-9 mild; 10-14 moderate; 15-21 severe): 21 Source: Developed by Drs. Charli Vizcaino, Roseanne Sinclair, Tico Vegas and colleagues, with an educational kalee from [employer]. DONTRELL-7 Assessment Billing DONTRELL-7 Assessment Tool: DONTRELL-7 Assessment 16036 Review of Systems ENT Reports otalgia, Reports facial pain, Reports nasal congestion, Reports tinnitus, Reports sinus pain and Denies sore throat Card Denies chest pain, Denies leg edema, Denies lightheadedness and Reports dyspnea on exertion Resp Denies cough, Denies hemoptysis and Reports dyspnea on exertion GI Reports abdominal pain, Denies melena, Reports constipation, Reports GI cramping, Reports heartburn, Denies diarrhea and Denies vomiting Denies urinary frequency, Denies dysuria and Denies urinary urgency Neuro Denies Abnormal speech present Psych Reports anxiety, Reports depression, Reports hopelessness and Reports irritability Physical exam (Primary Care) Vital Signs: Last Vital Signs Temp 98.4 F 01/31/25 15:26 Pulse 94 01/31/25 15:26 BP 106/72 01/31/25 15:26 Pulse Ox 96 01/31/25 15:26 Oxygen Delivery Method Room Air 01/31/25 15:26 BMI result Body Mass Index 29.4 Tobacco/Smoking Status: Tobacco use Status Tobacco use date assessed 01/31/25 01/31/25 15:43 Patient Tobacco Use Status Former Tobacco user 01/31/25 15:43 Tobacco use type Cigarette 01/31/25 15:43 e-Cigarette/Vaping Use Never Used 01/31/25 15:43 PHQ-9: PHQ-9 Score PHQ-9: Total score 17 01/31/25 15:53 Depression Screening Interpretation: Positive Thrive Assessment: Date of Thrive Assessment Date Thrive assessed 01/31/25 01/31/25 15:43 Currently or been in a relationship where the following occur: No concerns reported Const General: cooperative and acute distress (Abdominal pain) Nutritional Appearance: well nourished Orientation/consciousness: oriented to person, oriented to place and oriented to time HENMT Ears: TM's normal bilaterally General nose exam: Abnormal mucous membranes and turbinates present boggy and erythematous Mouth: oropharynx normal Eyes Conjunctivae: conjunctivae normal Sclerae: sclerae normal Pupils: Equal, round and reactive pupils present Neck Neck: Yes no lymphadenopathy and Yes no JVD Thyroid: Thyroid normal Carotids: no bruits Resp Effort & Inspection: normal respiratory effort and not tachypneic Auscultation: no crackles, no rales, no rhonchi and no wheezes Cardio Rate: regular rate Rhythm: regular rhythm Heart sounds: no murmurs and normal S1 and S2 GI Palpation (GI): Soft to palpation, Firmness to palpation present (GI) in the LLQ, in the RLQ, in the LUQ, in the RUQ and other (Semi-firm) and Tenderness to palpation present (GI) Auscultation: Hyperactive bowel sounds present Rectal Exam - Female: deferred Skin General skin exam: no rashes or lesions noted and dry skin Neuro General: oriented to person, oriented to place and oriented to time Cranial nerves: Yes Equal, round and reactive pupils present Speech: No Abnormal speech present Gait exam (Neuro): Normal gait present Motor exam (neuro): no tremor noted Extrem Right upper extremity: full ROM Left upper extremity: full ROM Right lower extremity: full ROM; no edema Left lower extremity: full ROM; no edema Psych Mental Status: mental status grossly normal Speech and movement: Normal speech and movement present Affect: normal affect Attitude: cooperative Thought process: Normal thought process present Coding Level of Care Code Est Pt Level 5 (14166) Diagnoses Generalized abdominal pain R10.84 Abdominal location: generalized Moderate persistent asthma with status asthmaticus J45.42 Asthma complication type: with status asthmaticus Rhinosinusitis J32.9 Additional Codes DONTRELL-7 Assessment Billing - DONTRELL-7 Assessment Tool: DONTRELL-7 Assessment 93643 ([id number]) PHQ-9 - 74820 - PHQ-9 Billing: Yes ([id number]) Time Spent (min) 43 Assessment & Plan Assessment & Plan (1) Abdominal pain: Code(s): R10.9 - Unspecified abdominal pain Category: Medical Qualifiers: Abdominal location: generalized Qualified Code(s): R10.84 - Generalized abdominal pain Plan: Patient has not moved her bowel in 6 days. Diffused abdominal pain with light touch. Bowel sounds hypoactive throughout. Patient was recommended to go back to the ED. The ambulance was called, waited with the patient, and the patient was transported via stretcher. The patient was with her; he took he belongings and followed the stretcher. (2) Moderate persistent asthma: Code(s): J45.40 - Moderate persistent asthma, uncomplicated Category: Medical Qualifiers: Asthma complication type: with status asthmaticus Qualified Code(s): J45.42 - Moderate persistent asthma with status asthmaticus Plan: The patient c/o ongoing chest tightness. Lungs clear on auscultation. Continue Albuterol sulfate 2.5 mg via neb tx q 4H PRN, ALBUTEROL SULFATE 90 MCG/ACTUATION 2 PUFFS INHALATION Q.6 P.R.N., and Advair 250-50 mcg/dose 1 inhalation b.i.d. (3) Rhinosinusitis: Code(s): J32.9 - Chronic sinusitis, unspecified Category: Medical Plan: Deferred treatment to hospital. The patient was transferred to the hospital for severe abdominal pain. Discussed with the patient that she should mention her nasal congestion in the hospital, so she could be a treated appropriately
== END 2025-01-31 16:30 | disposition home or self-care (01) ==
LOC: HO.HMCH 15:22
DX: R10.84 Generalized abdominal pain (principal); J45.42 Moderate persistent asthma with status asthmaticus; J32.9 Chronic sinusitis, unspecified

== ENCOUNTER → 2025-01-31 15:21 | Outpatient (BNVA) | payer OTHER, SELFPAY | DX: R10.84 Generalized abdominal pain (principal); J45.42 Moderate persistent asthma with status asthmaticus; J32.9 Chronic sinusitis, unspecified | CPT/HCPCS: 96127 ==

== ENCOUNTER 2025-01-31 16:37 | Emergency (ER) | payer OTHER, SELFPAY ==
--- NOTE | ~2025-01-31 | CT_ITS ---
CLINICAL HISTORY: constipation hx of bowel obstruciton CT abdomen and pelvis without contrast Comparison: 01/11/2025 Findings: The lung bases are clear. Solid organs are within normal limits. There are no abnormal findings in the gallbladder fossa. No renal stones. No bowel obstruction, pneumoperitoneum, or pneumatosis. Pelvic contents unremarkable. Normal appendix. No acute fracture. IMPRESSION: No acute findings. This document has been electronically signed by: Lucas Castillo MD on 01/31/2025 18:48:34
--- NOTE | ~2025-01-31 | XR_ITS ---
CLINICAL HISTORY: sob 1 view chest x-ray Comparison: 01/11/2025 Findings: No consolidation or effusion. Heart size is normal. No acute fracture. IMPRESSION: 1. No acute findings. This document has been electronically signed by: Lucas Castillo MD on 01/31/2025 18:44:38
--- NOTE | 2025-01-31 16:55 | ED.GENADULT ---
HPI - General Adult General Chief complaint: Abdominal Pain Stated complaint: Constipation x7 days hx ZAFAR Time Seen by Provider: 01/31/25 16:45 Source: patient and EMS Mode of arrival: EMS Limitations: no limitations History of Present Illness HPI narrative: This is a 49-year-old female history of heartburn, asthma, gastric bypass, ileus, situational anxiety presenting with abdominal pain, constipation ongoing for the past 7 days. Reports no bowel movement for the past 7 days and passing minimal gas. Some associated nausea however no vomiting. Denies fevers, chills, chest pain, shortness of breath, headache, vision changes, dizziness and weakness. Some shortness of breath and wheezing reports recent RSV infection. Related Data Home Medications ?Medication ?Instructions ?Recorded ?Confirmed trazodone 50 mg tablet 50 mg PO BEDTIME PRN Sleep 08/02/24 01/31/25 gabapentin 600 mg tablet 300 mg PO TID PRN Pain 12/31/24 01/31/25 melatonin 5 mg tablet 5 mg PO BEDTIME PRN Sleep 12/31/24 01/31/25 methocarbamol 750 mg tablet 750 mg PO Q8H PRN Muscle Spasm 12/31/24 01/31/25 lorazepam 0.5 mg tablet 0.5 mg PO Q6H PRN 01/31/25 01/31/25 nebulizer and compressor #1 ea 01/31/25 01/31/25 (All-In-One Nebulizer System) Previous Rx's ?Medication ?Instructions ?Recorded albuterol sulfate 90 mcg/actuation 2 puff inhalation Q6H PRN 12/18/24 aerosol inhaler shortness of breath or wheezing #8.5 grams lidocaine 4 % topical patch 1 patch transdermal DAILY #5 ea 01/07/25 (Lidocaine Pain Relief) [id number] 1 tab PO Q4-6H PRN headache #10 01/09/25 50 mg-325 mg-40 mg tablet tabs fluticasone propionate 50 1 spray intranasal Q12H #16 grams 01/09/25 mcg/actuation nasal spray,suspension hydroxyzine HCl 25 mg tablet 25 mg PO Q8H PRN anxiety #15 tabs 01/09/25 ondansetron 4 mg disintegrating 4 mg PO Q8H PRN nausea and 01/09/25 tablet vomiting #15 tabs albuterol sulfate 2.5 mg/3 mL 2.5 mg (3 mL) inhalation Q4H PRN 01/17/25 (0.083 %) solution for nebulization Shortness Of Breath Or Wheezing #90 mL docusate sodium 100 mg capsule 100 mg PO BID PRN constipation #60 01/17/25 (Colace) caps fluticasone 250 mcg-salmeterol 50 1 inh inhalation BID #60 ea 01/17/25 mcg/dose blistr powdr for inhalation (Advair Diskus) omeprazole 40 mg capsule,delayed 40 mg PO DAILY #60 caps 01/17/25 release polyethylene glycol 3350 17 17 g PO BID PRN constipation #119 01/17/25 gram/dose oral powder (Miralax) grams sennosides 8.6 mg tablet (Senna 8.6 mg PO BID PRN constipation #60 01/17/25 Lax) tabs benzonatate 200 mg capsule 200 mg PO BID PRN cough 30 days 01/29/25 #60 caps dicyclomine 10 mg capsule 20 mg (2 x 10 mg) PO QID PRN 01/29/25 abdominal pain 30 days #120 caps lactulose 10 gram/15 mL oral 15 ml PO BEDTIME PRN constipation 01/29/25 solution 30 days #1,200 mL loratadine 10 mg tablet 10 mg PO DAILY #60 tabs 01/29/25 metoclopramide HCl 10 mg tablet 10 mg PO Q6H PRN nausea and 01/31/25 (Reglan) vomiting #30 tabs sucralfate 100 mg/mL oral 10 ml PO BID 7 days #140 mL 01/31/25 suspension (Carafate) tramadol 50 mg tablet 50 mg PO Q8H PRN pain #12 tabs 01/31/25 Allergies Allergy/AdvReac Type Severity Reaction Status Date / Time hydrocodone [From Vicodin] Allergy Anaphylaxis Verified 01/31/25 17:03 Penicillins Allergy Rash Verified 01/31/25 17:03 Review of Systems Review of Systems: Yes all other systems are reviewed and are negative PMFSH Past Medical History Attestation statement: The following information was validated with the patient. Source: old records reviewed and nursing notes reviewed Medical History Fibromyalgia History of small bowel obstruction Surgical History History of appendectomy H/O breast augmentation S/P cholecystectomy H/O gastric bypass Family History Family History Other Mental health disorder Social History Social History Household Members: Significant Other Housing: House Do you presently have visiting nurse or other home services: No Alcohol intake: never Patient Tobacco Use Status: Former Tobacco user Tobacco use type: Cigarette Smoked in Last 30 Days: No e-Cigarette/Vaping Use: Never Used Second Hand Smoke Exposure: Yes Use of substances other than those prescribed or required for medical reasons: No Advance Directives: No Advance Directives Information Provided: No Do you have a plan to hurt others: No Plan Patient : No service: No Cognitive needs: No Hearing needs: No Vision needs: No Physical Exam ED Vital Signs: Vital Signs - 24 hr 01/31/25 17:00 01/31/25 19:32 01/31/25 19:35 Temperature 98.0 F 98.5 F Pulse Rate 93 77 Respiratory Rate 18 18 18 Blood Pressure 117/84 104/70 Pulse Oximetry 98 97 Oxygen Delivery Method Room Air Room Air BMI result Body Mass Index 27.4 vss Appearance: Alert.? Oriented X3.? No acute distress.? Head: Normocephalic, atraumatic, no step-offs or deformities Eyes: Pupils equal, round and reactive to light.?? Neck: Normal inspection.? Neck supple.? CVS: Normal heart rate and rhythm.? Pulses normal.? Respiratory: No respiratory distress.? Breath sounds very mild expiratory wheezing..? Abdomen: Soft and diffusely tender with hypoactive bowel sounds throughout.? Skin: Skin warm and dry.? Normal skin color.? Normal skin turgor.? Extremities: No lower extremity edema.? No calf ttp. 5/5 strength to bilateral upper and lower extremities Neuro: Oriented X 3.? No motor deficit.? No sensory deficit. CN 2-12 intact Course Reevaluation(s) Reevaluation #1: CBC unremarkable. Chemistry no acute findings needing intervention. Beta hCG negative. Troponin negative, EKG pending. CT abdomen pelvis no acute findings. Chest x-ray unremarkable. UA without infection. Time: 18:55 Reevaluation #2: CT abdomen and pelvis no acute findings. Chest x-ray unremarkable. After soap suds enema patient reports passing a few cecilia Time: 19:31 Reevaluation #3: Sign out to Dr. John Additional Reevaluation(s): would not expect BM she does not have a large amount of stool in her intestine, no obstruction seen labs, reassuring at this time will take off miralax and lactulose keep on senna and colace, start carafate and reglan, short course analgesia has good outpatient follow up Medications Administered Discontinued Medications Generic Name Dose Route Start Last Admin Trade Name Freq PRN Reason Stop Dose Admin Albuterol Sulfate 2 puff 01/31/25 18:54 01/31/25 19:33 Albuterol Sulfate 90 Mcg 8 Gm Inhaler INHALE 01/31/25 18:55 2 puff ONCE ONE Administration Bisacodyl 10 mg 01/31/25 20:00 01/31/25 20:11 Bisacodyl 10 Mg Supp.Rect IL 01/31/25 20:01 10 mg ONCE ONE Administration Diphenhydramine HCl 25 mg 01/31/25 18:51 01/31/25 19:33 Diphenhydramine Hcl 50 Mg/Ml Vial IVPUSH 01/31/25 18:52 25 mg ONCE ONE Administration Fentanyl 25 mcg 01/31/25 18:51 01/31/25 19:32 Fentanyl Citrate/Pf 100 Mcg/2 Ml Vial IVPUSH 01/31/25 18:52 25 mcg ONCE ONE Administration Protocol Ketorolac Tromethamine 15 mg 01/31/25 17:52 01/31/25 18:17 Ketorolac Tromethamine 15 Mg/Ml Vial IVPUSH 01/31/25 17:53 15 mg ONCE ONE Administration Metoclopramide HCl 10 mg 01/31/25 18:51 01/31/25 19:33 Metoclopramide Hcl 10 Mg/2 Ml Vial IVPUSH 01/31/25 18:52 10 mg ONCE ONE Administration Ondansetron HCl 4 mg 01/31/25 17:52 01/31/25 18:17 Ondansetron Hcl 4 Mg/2 Ml Vial IVPUSH 01/31/25 17:53 4 mg ONCE ONE Administration Medical Decision Making Medical Decision Making [facility] Narrative: 49-year-old female presents with constipation, abdominal pain, nausea ongoing x7 days. History of bowel obstruction per patient. Physical exam diffuse abdominal discomfort on palpation. No rebound tenderness. Hypoactive bowel sounds throughout. Very mild expiratory wheezing on exam. History and physical exam concerning for possible small or large bowel obstruction versus ileus versus functional constipation. Unlikely acute abdomen, mesenteric ischemia, appendicitis, cholecystitis, diverticulitis, pancreatitis. Will rule out metabolic derangement. Mild wheezing likely secondary to recent viral illness. I do not suspect PE, ACS, dissection. Plan labs, imaging, urine. Differential Diagnosis Differential Diagnoses: The differential diagnosis associated with the presentation includes (History and physical exam concerning for possible small or large bowel obstruction versus ileus versus functional constipation. Unlikely acute abdomen, mesenteric ischemia, appendicitis, cholecystitis, diverticulitis, pancreatitis. Will rule out metabolic derangement) Admission/Observation Consideration of admission/observation: Escalation of care including admission/observation considered Lab Data [facility] Lab Attestation statement: I reviewed the patient's lab results. 01/31/25 17:09 01/31/25 17:09 Labs: Lab Results 01/31/25 01/31/25 Range/Units 17:09 18:49 WBC 5.2 (4.8-10.8) X10*3/uL RBC 4.03 L (4.20-5.50) X10*6/uL Hgb 12.7 (12.0-16.0) g/dl Hct 37.6 (37.0-47.0) % MCV 93.3 (80.0-98.0) fL MCH 31.5 (27.0-33.0) pg MCHC 33.8 (31.0-35.0) g/dl RDW 13.0 (11.0-16.0) % Plt Count 175 D (160-400) X10*3/uL MPV 10.6 (9.4-12.3) fL Immature Gran % (Auto) 0.2 (0.0-0.4) % Neut % (Auto) 65.0 (45-73) % Lymph % (Auto) 26.2 (20-40) % [place] % (Auto) 6.6 (2-11) % Eos % (Auto) 1.6 (0-4) % Baso % (Auto) 0.4 (0-2) % Lymph # (Auto) 1.4 (1.2-4.9) X10*3/uL [place] # (Auto) 0.3 (0.1-1.2) X10*3/uL Eos # (Auto) 0.1 (0.0-0.4) X10*3/uL Baso # (Auto) 0.0 (0.0-0.2) X10*3/uL Abs Immat Gran (auto) 0.01 (0.00-0.03) X10*3/uL Absolute Neuts (auto) 3.4 (2.0-8.3) x10*3/uL Absolute Nucleated RBC 0.000 (0.0-0.012) X10*3/uL Nucleated RBC % (auto) 0.0 (0.0-0.2) /100WBC Sodium 139 (135-145) mmol/L Potassium 4.4 (3.3-5.1) mmol/L Chloride 110 H (96-108) mmol/L Carbon Dioxide 22 (22-29) mmol/L Anion Gap 11 L (12-20) BUN 11 (9-16) mg/dL Creatinine 0.69 (0.5-1.4) mg/dL Estim Creat Clear Calc 87.2 Estimated GFR > 60 Random Glucose 89 (60-115) mg/dL Calcium 8.7 D (8.4-10.2) mg/dL Total Bilirubin 0.4 (0.0-1.0) mg/dL AST 26 (5-31) U/L ALT 17 (0-31) U/L Alkaline Phosphatase 69 (39-117) U/L Troponin I High Sens 3.0 (<3.5-17.0) ng/L B-Natriuretic Peptide 38 (<100) pg/mL Total Protein 6.7 (6.5-8.0) g/dL Albumin 3.8 (3.5-5.0) g/dL Beta HCG, Quant < 2 mIU/mL Urine Color Yellow Urine Appearance Clear Urine pH 7.0 (5.0-9.0) Ur Specific [place] 1.010 (1.005-1.025) Urine Protein Negative (Neg-Trace) mg/dL Urine Glucose (UA) Negative (Negative) mg/dL Urine Ketones Negative (Negative) mg/dL Urine Blood Negative (Negative) Urine Nitrite Negative (Negative) Ur Leukocyte Esterase Negative (Negative) Influenza Type A (PCR) NEGATIVE (Negative) Influenza Type B (PCR) NEGATIVE (Negative) RSV RNA Qual (PCR) NEGATIVE (Negative) SARS-CoV-2 RNA (RT-PCR) NEGATIVE (Negative) Independent Interpretation I performed an independent interpretation of an: CT Scan (Findings: The lung bases are clear. Solid organs are within normal limits. There are no abnormal findings in the gallbladder fossa. No renal stones. No bowel obstruction, pneumoperitoneum, or pneumatosis. Pelvic contents unremarkable. Normal appendix. No acute fracture. IMPRESSION: No acute findi) Radiology Impression Discussion of test interpretation with radiology: I have reviewed the radiologist's reading. External Record Review External record reviewed: Inpatient record, Office record, Outpatient record, Prior outpatient labs, Prior outpatient radiology, Primary care record and Outside ED record Chronic Conditions Patient?s care impacted by: Other (see hpi ) Critical Care Time Critical Care Time Critical Care Time: Yes Total Critical Care Time: 35 Attestation: I attest to this time spent taking care of the patient, obtaining history, physical, reviewing labs, imaging, treatment of patients condition +/- specialist/hospitalist consult +/- procedure Discharge Plan Discharge Clinical Impression: Abdominal pain Qualifiers: Abdominal location: generalized Qualified Code(s): R10.84 - Generalized abdominal pain Patient Disposition: Home, Self-Care Instructions: High Fiber Diet (ED), Abdominal Pain (ED) Additional Instructions: Take your medications as prescribed but please stop miralax and lactulose. Follow-up with your primary care provider this week. Return to the emergency department with new or worsening symptoms. Such as fevers, chills, chest pain, shortness of breath, nausea, vomiting, dizziness, headache, vision changes, lethargy In case of emergency call 911 Please follow-up with GI. Prescriptions: New metoclopramide HCl [Reglan] 10 mg tablet 10 mg PO Q6H PRN (Reason: nausea and vomiting) Qty: 30 0RF sucralfate [Carafate] 100 mg/mL suspension 10 ml PO BID 7 Days Qty: 140 0RF tramadol 50 mg tablet 50 mg PO Q8H PRN (Reason: pain) Qty: 12 0RF No Action loratadine 10 mg tablet 10 mg PO DAILY Qty: 60 2RF dicyclomine 10 mg capsule 20 mg PO QID PRN (Reason: abdominal pain) 30 Days Qty: 120 3RF benzonatate 200 mg capsule 200 mg PO BID PRN (Reason: cough) 30 Days Qty: 60 3RF lactulose 10 gram/15 mL solution 15 ml PO BEDTIME PRN (Reason: constipation) 30 Days Qty: 1200 2RF gabapentin 600 mg Tablet 300 mg PO TID PRN (Reason: Pain) melatonin 5 mg tablet 5 mg PO BEDTIME PRN (Reason: Sleep) methocarbamol 750 mg tablet 750 mg PO Q8H PRN (Reason: Muscle Spasm) lidocaine [Lidocaine Pain Relief] 4 % Adhesive Patch,Medicated 1 patch transdermal DAILY Qty: 5 0RF Protocol: Apply to: Apply to: Affected area ondansetron 4 mg tablet,disintegrating 4 mg PO Q8H PRN (Reason: nausea and vomiting) Qty: 15 0RF gwbzozzvvv-qrnsthxhpkeht-yqvk 50-325-40 mg tablet 1 tab PO Q4-6H PRN (Reason: headache) Qty: 10 0RF hydroxyzine HCl 25 mg tablet 25 mg PO Q8H PRN (Reason: anxiety) Qty: 15 0RF fluticasone propionate 50 mcg/actuation spray,suspension 1 spray intranasal Q12H Qty: 16 0RF Rx Instructions: administer into each nostril trazodone 50 mg tablet 50 mg PO BEDTIME PRN (Reason: Sleep) albuterol sulfate 90 mcg/actuation HFA aerosol inhaler 2 puff inhalation Q6H PRN (Reason: shortness of breath or wheezing) Qty: 8.5 0RF docusate sodium [Colace] 100 mg capsule 100 mg PO BID PRN (Reason: constipation) Qty: 60 3RF polyethylene glycol 3350 [Miralax] 17 gram/dose powder 17 g PO BID PRN (Reason: constipation) Qty: 119 3RF sennosides [Senna Lax] 8.6 mg tablet 8.6 mg PO BID PRN (Reason: constipation) Qty: 60 3RF fluticasone propion-salmeterol [Advair Diskus] 250-50 mcg/dose blister with device 1 inh inhalation BID Qty: 60 3RF albuterol sulfate 2.5 mg /3 mL (0.083 %) solution for nebulization 2.5 mg inhalation Q4H PRN (Reason: Shortness Of Breath Or Wheezing) Qty: 90 3RF omeprazole 40 mg capsule,delayed release(DR/EC) 40 mg PO DAILY Qty: 60 3RF lorazepam 0.5 mg tablet 0.5 mg PO Q6H PRN (DME) nebulizer and compressor [All-In-One Nebulizer System] Device See Rx Instructions .ROUTE .MEDSUPPLY Qty: 1 Rx Instructions: As directed Referrals: Jam Viveros FNP-C [Primary Care Provider] - 2 days Stand Alone Forms: Work/School Release Print Language: Faroese
[2025-01-31 17:00] VITALS: BP 115/79; BP 117/84; PULSE 84; PULSE 93; RESP 18; TEMP 36.7; O2SAT 97; O2SAT 98; BMI 27.4
[2025-01-31 17:21] LABS: MANUAL DIFF FLAG NO
[2025-01-31 17:26] LABS: Basophils Percent Auto 0.4 % (0-2); Eosinophils Absolute Auto 0.1 X10*3/uL (0.0-0.4); Eosinophils Percent Auto 1.6 % (0-4); Hematocrit 37.6 % (37.0-47.0); Hemoglobin 12.7 g/dl (12.0-16.0); Imm Gran Abs Auto 0.01 X10*3/uL (0.00-0.03); Imm Gran Pct Auto 0.2 % (0.0-0.4); Lymphocytes Absolute Auto 1.4 X10*3/uL (1.2-4.9); Lymphocytes Percent Auto 26.2 % (20-40); Mean Corpuscular HGB Conc 33.8 g/dl (31.0-35.0); Mean Corpuscular Hemoglobin 31.5 pg (27.0-33.0); Mean Corpuscular Volume 93.3 fL (80.0-98.0); Mean Platelet Volume 10.6 fL (9.4-12.3); Monocytes Absolute Auto 0.3 X10*3/uL (0.1-1.2); Monocytes Percent Auto 6.6 % (2-11); Neutrophils Absolute Auto 3.4 x10*3/uL (2.0-8.3); Platelet Count 175 X10*3/uL (160-400); Red Blood Count 4.03 X10*6/uL (4.20-5.50); White Blood Count 5.2 X10*3/uL (4.8-10.8)
[2025-01-31 17:28] LABS: Appearance Urine Clear; Color Urine Yellow; Glucose Urine UA Negative (Negative); Leukocyte Esterase Urine Negative (Negative); Nitrite Urine Negative (Negative); Urine Blood Negative (Negative); Urine Ketones Negative (Negative); Urine Protein Negative (Neg-Trace)
[2025-01-31 17:49] LABS: Alanine Aminotransferase 17 U/L (0-31); Albumin Level 3.8 g/dL (3.5-5.0); Alkaline Phosphatase 69 U/L (39-117); Anion Gap 11 (12-20); Aspartate Amino Transferase 26 U/L (5-31); Bilirubin Total 0.4 mg/dL (0.0-1.0); Blood Urea Nitrogen 11 mg/dL (9-16); Calcium 8.7 mg/dL (8.4-10.2); Carbon Dioxide 22 mmol/L (22-29); Chloride 110 mmol/L (96-108); Creatinine Clr Calc Pharmacy 87.2; Estimated Glomerular Filt Rate > 60; Glucose Random 89 mg/dL (60-115); Potassium 4.4 mmol/L (3.3-5.1); Sodium 139 mmol/L (135-145); Total Protein 6.7 g/dL (6.5-8.0)
[2025-01-31 17:56] LABS: HCG Quantitative < 2 mIU/mL
[2025-01-31] MEDS: Ketorolac Tromethamine 15 MG/ML VIAL IVPUSH (18:17)
[2025-01-31] MEDS: ondansetron HCL 4 MG/2 ML VIAL IVPUSH (18:17)
[2025-01-31 18:51] LABS: B Type Natriuretic Peptide 38 pg/mL (<100)
--- NOTE | 2025-01-31 18:54 | ECG_ITS ---
Test Reason : CHEST PAIN Blood Pressure : */* mmHG Vent. Rate : 90 BPM Atrial Rate : 90 BPM P-R Int : 132 ms QRS Dur : 66 ms QT Int : 368 ms P-R-T Axes : 13 34 26 degrees QTcB Int : 450 ms Normal sinus rhythm Low voltage QRS Borderline ECG When compared with ECG of 11-Jan-2025 18:15, No significant change was found Referred By: Ariadna Barker Electronically Signed By: Ian Johnson
[2025-01-31 19:31] LABS: Influenza A PCR NEGATIVE (Negative); Influenza B PCR NEGATIVE (Negative); Resp Syncy Virus RNA Qual PCR NEGATIVE (Negative); SARS COV2 PCR INHOUSE NEGATIVE (Negative)
[2025-01-31 19:32] VITALS: RESP 18
[2025-01-31] MEDS: fentaNYL citrate/PF 100 MCG/2 ML VIAL 25 MCG IVPUSH (19:32)
[2025-01-31] MEDS: diphenhydrAMINE HCL 50 MG/ML VIAL 25 MG IVPUSH (19:33)
[2025-01-31] MEDS: Albuterol Sulfate 90 MCG 8 GM INHALER 2 PUFF INHALE (19:33)
[2025-01-31] MEDS: Metoclopramide HCl 10 MG/2 ML VIAL IVPUSH (19:33)
[2025-01-31 19:35] VITALS: BP 104/70; PULSE 77; RESP 18; TEMP 36.9; O2SAT 97
[2025-01-31] MEDS: bisacodyL 10 MG SUPP.RECT PR (20:11)
[2025-01-31 21:49] VITALS: BP 113/69; PULSE 81; RESP 16; TEMP 36.6; O2SAT 95
[2025-01-31 21:50] VITALS: BP 113/69; PULSE 81; RESP 16; TEMP 36.6; O2SAT 95
== END 2025-01-31 21:50 | disposition home or self-care (01) ==
PROVIDERS: Physician Assistant; Emergency Provider Internal Medicine
DX: R10.84 Generalized abdominal pain (principal); R06.02 Shortness of breath; J45.909 Unspecified asthma, uncomplicated; Z79.899 Other long term (current) drug therapy; Z87.891 Personal history of nicotine dependence
CPT/HCPCS: 0241U; 36415; 71045; 74176; 80053; 81003; 83880; 84484; 84702; 85025; 93005; 96374; 96375; 99284; 99285; J1200; J1885; J2405; J2765; J3010

== ENCOUNTER → 2025-01-31 16:45 | Outpatient (BNV) | payer OTHER, SELFPAY | PROVIDERS: Emergency Provider Internal Medicine; Visit Provider Specialist | DX: K59.00 Constipation, unspecified (principal); R06.02 Shortness of breath | CPT/HCPCS: 71045; 74176 ==

== ENCOUNTER → 2025-01-31 18:54 | Outpatient (BNV) | payer OTHER, SELFPAY | PROVIDERS: Emergency Provider Internal Medicine; Visit Provider Internal Medicine Cardiovascular Disease | DX: R07.9 Chest pain, unspecified (principal) | CPT/HCPCS: 93010 ==

== ENCOUNTER 2025-02-08 11:30 | Outpatient (AMB) | payer OTHER, SELFPAY ==
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
[2025-02-08 11:38] VITALS: BP 120/64; PULSE 100; RESP 20; TEMP 36.5; O2SAT 95; BMI 30.8
== END 2025-02-08 12:45 | disposition home or self-care (01) ==
LOC: HO.HMCH 11:31
DX: S83.422A Sprain of lateral collateral ligament of left knee, initial encounter (principal); S32.030A Wedge compression fracture of third lumbar vertebra, initial encounter for closed fracture; V89.2XXA Person injured in unspecified motor-vehicle accident, traffic, initial encounter; S83.012A Lateral subluxation of left patella, initial encounter

== ENCOUNTER 2025-02-14 14:21 | Outpatient (AMB) | payer OTHER, SELFPAY ==
[2025-02-14 14:37] VITALS: BP 120/72; PULSE 94; RESP 18; TEMP 36.9; O2SAT 95; BMI 32.7
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
--- OUTSIDE RECORDS SUMMARY | 2025-02-14 15:51 | XMS_ITS | Clinical Summary ---
Author Organization [facility] Address [address] [place] [address] Care Team Providers Care Boatswain Mate Name Role Phone Unavailable Primary Care Provider [...]
--- OUTSIDE RECORDS SUMMARY | 2025-02-14 15:51 | XMS_ITS | Clinical Summary ---
Author Organization [facility] [place] [address] Care Team Providers Care Roofer Helper Name Role Phone Unavailable Primary Care Provider [...]
== END 2025-02-14 15:30 | disposition home or self-care (01) ==
DX: S83.422A Sprain of lateral collateral ligament of left knee, initial encounter (principal); S32.030A Wedge compression fracture of third lumbar vertebra, initial encounter for closed fracture; Z04.3 Encounter for examination and observation following other accident; V89.2XXA Person injured in unspecified motor-vehicle accident, traffic, initial encounter; S83.012A Lateral subluxation of left patella, initial encounter; S06.0X1A Concussion with loss of consciousness of 30 minutes or less, initial encounter

== ENCOUNTER 2025-02-28 09:52 | Outpatient (AMB) | payer OTHER, SELFPAY ==
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
[2025-02-28 10:10] VITALS: BP 96/62; PULSE 90; RESP 18; TEMP 37; O2SAT 98; BMI 29.9
--- OUTSIDE RECORDS SUMMARY | 2025-02-28 11:30 | XMS_ITS | Clinical Summary ---
Author Organization [facility] Address [address] [place] [address] Care Team Providers Care Oleomargarine Maker Name Role Phone Unavailable Primary Care Provider [...]
--- OUTSIDE RECORDS SUMMARY | 2025-02-28 11:30 | XMS_ITS | Clinical Summary ---
Author Organization [facility] Address [address] [place] [address] Care Team Providers Care Owner Name Role Phone Unavailable Primary Care Provider [...] Vaccines (1 of 2) 2023 COVID-19 Vaccine ( - 2023-2 5 season) 2024 Colorectal Cancer Screening: Colonoscopy 09/09/2024 Depression Screening 09/09/2024 HIV Screening 09/09/2024 Hepatitis C Screening 09/09/2024 Social Influencers of Health Screening 09/09/2024 Influenza Vaccine (Season Ended) 2025 HIB Vaccines Aged Out No longer eligi [...] age to complete this topic Meningococcal B Vaccine Aged Out No l onger eligible based on patient's age to complete [...]
== END 2025-02-28 11:13 | disposition home or self-care (01) ==
LOC: HO.HMCH 09:53
DX: K59.04 Chronic idiopathic constipation (principal); F41.9 Anxiety disorder, unspecified; G44.209 Tension-type headache, unspecified, not intractable; R12 Heartburn

== ENCOUNTER 2025-03-07 15:45 | Outpatient (AMB) | payer OTHER, SELFPAY ==
[2025-03-07 15:49] VITALS: BP 114/72; PULSE 98; RESP 24; TEMP 37; O2SAT 96
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
--- OUTSIDE RECORDS SUMMARY | 2025-03-07 18:18 | XMS_ITS | Clinical Summary ---
Author Organization [facility] Address [address] [place] [address] Care Team Providers Care Delinquent Notice Machine Operator Name Role Phone Unavailable Primary Care Provider [...]
--- OUTSIDE RECORDS SUMMARY | 2025-03-07 18:18 | XMS_ITS | Clinical Summary ---
Author Organization [facility] Address [address] [place] [address] Care Team Providers Care Wastewater Technician Name Role Phone Unavailable Primary Care Provider [...]
== END 2025-03-07 16:49 | disposition home or self-care (01) ==
LOC: HO.HMCH 15:46
DX: G44.209 Tension-type headache, unspecified, not intractable (principal); F41.9 Anxiety disorder, unspecified; K56.7 Ileus, unspecified; Z87.19 Personal history of other diseases of the digestive system; R06.2 Wheezing; Z98.84 Bariatric surgery status; R10.84 Generalized abdominal pain; J45.42 Moderate persistent asthma with status asthmaticus

== ENCOUNTER → 2025-03-07 15:45 | Outpatient (BNVA) | payer OTHER, SELFPAY | DX: Z13.89 Encounter for screening for other disorder (principal) ==

== ENCOUNTER 2025-03-15 08:15 | Outpatient (AMB) | payer OTHER, SELFPAY ==
--- NOTE | 2025-03-15 08:18 | MHC.OFFVIS ---
Vital Signs 03/15/25 08:19 Height 5 ft 2 in Weight 154 lb BMI 28.2 BP 93/64 Blood Pressure Location Lt brachial Position Sitting Pulse 82 Pulse Oximetry (%) 97 Oxygen Delivery Method Room Air Intake Visit Reasons: Abdominal pain Intake Note: Patient new consult for abdominal pain. Patient cc: abdominal pain with bloating, intestine pain with painful chronic constipation, acid refleux and denies any other Subsea Engineer Required: No Accompanied by: Spouse Allergies hydrocodone [From Vicodin] Allergy (Verified 03/15/25 08:18) Anaphylaxis Penicillins Allergy (Verified 03/15/25 08:18) Rash Medication List - Last Reconciled 03/15/25 by Mary Soria CNP albuterol sulfate 90 mcg/actuation 2 puffs inhalation Q6H PRN albuterol sulfate 2.5 mg (3 mL) inhalation Q4H PRN pntlwkusrm-ahebhoztnldlk-xzpm 50-325-40 mg 1 tab PO Q4-6H PRN dicyclomine 20 mg (2 x 10 mg) PO QID PRN 30 days docusate sodium (Colace) 200 mg (2 x 100 mg) PO BID PRN 30 days fluticasone propion-salmeterol 250-50 mcg/dose (Advair Diskus) 1 inh inhalation BID fluticasone propionate 50 mcg/actuation 1 spray intranasal Q12H gabapentin 300 mg PO TID 30 days hydroxyzine HCl 25 mg PO Q8H PRN lidocaine 4% (Lidocaine Pain Relief) 1 patch See Protocol transdermal DAILY PRN loratadine 10 mg PO DAILY lorazepam 0.5 mg PO BID PRN 7 days melatonin 5 mg PO BEDTIME PRN methocarbamol 750 mg PO TID nebulizer and compressor (All-In-One Nebulizer System) As directed omeprazole 40 mg PO BID ondansetron 4 mg PO Q8H PRN polyethylene glycol 3350 (Miralax) 17 grams PO BID PRN [Raised toilet seat As directed] sennosides (Senna Lax) 8.6 mg PO BID PRN Shower Chair As directed tramadol 50 mg PO BID PRN 15 days trazodone 50 mg PO BEDTIME PRN 30 days HPI HPI Abdominal pain: Details: Patient is a 49-year-old female with PMH of fibromyalgia, anxiety and asthma. She was referred by her PCP for further evaluation of abdominal pain. The patient presents today for evaluation of ongoing abdominal pain. She is accompanied by her partner. She reports a history of multiple abdominal surgeries dating back to 2013. Her current episode of abdominal pain began in mid-December 2024. At the time of symptom onset, she sought ER care and was diagnosed with ileus, RSV infection, and an asthma exacerbation. Approximately three weeks later, she returned to the ER with persistent abdominal pain and respiratory symptoms and was subsequently admitted for acute hypoxic respiratory failure secondary to pneumonia. The abdominal pain has been persistent since then. It is localized primarily to the left upper quadrant and radiates to the left lower quadrant. She describes the pain as throbbing, and it is most prominent during the midday hours. The pain worsens with food intake and following bowel movements. She reports significant constipation since December, with bowel movements occurring every 3 to 7 days and described as hard. Prior to this, her bowel movements occurred every 3 to 4 days with normal consistency while using daily Miralax. Since hospitalization, she has been taking a bowel regimen including senna, docusate, and Miralax daily, with minimal improvement. She also reports the onset of pyrosis around the same time as the abdominal pain. She is currently taking pantoprazole 40 mg twice daily, which has provided partial relief. She occasionally takes the medication with food. Associated symptoms: nausea Patient denies: fever/chills, vomiting, regurgitation, dysphasia, unintentional wt loss or melena/hematochezia. common food consumed: sandwich, rice, grilled chicken, hamburger minimal fruit and vegetables water, 1 cup of coffee/day Social hx: 2 beers approx 1-2x/month denies recreational drug use current smoker, recently restarted after five year cessation -family hx as below + reports her father struggled with GI symptoms most his life. She is unsure of any official diagnosis. -denies personal hx of CA -tolerated anesthesia in the past without difficulty. [facility] Medical History (Updated 03/15/25 @ 10:12 by Mary Soria CNP) Acid reflux Tear of lateral collateral ligament of left knee Fibromyalgia History of small bowel obstruction Surgical History History of appendectomy H/O breast augmentation S/P cholecystectomy H/O gastric bypass Family History (Updated 03/15/25 @ 08:56 by Mary Soria CNP) Mother Breast cancer Paternal Grandmother Breast cancer Throat cancer Other Mental health disorder Social History Household Members: Significant Other Housing: House Do you presently have visiting nurse or other home services: No Alcohol intake: never Patient Tobacco Use Status: Former Tobacco user Tobacco use type: Cigarette e-Cigarette/Vaping Use: Never Used Second Hand Smoke Exposure: Yes service: No Cognitive needs: Yes (Cane/ Walker/ Back brace/ Knee brace) Hearing needs: No Vision needs: No Review of Systems Const Reports as per HPI ENT Reports as per HPI Card Reports as per HPI Resp Reports as per HPI GI Reports as per HPI Reports as per HPI Physical Exam Vital Signs: Oxygen Delivery Method Room Air 03/15/25 08:19 BMI result Body Mass Index 28.2 Const General: healthy appearing, no acute distress and well developed Nutritional Appearance: well nourished Orientation/consciousness: patient oriented x3 HEENT Head: Yes normal to inspection, Yes normocephalic and Yes atraumatic Face and sinus: Yes normal facial exam Eyes General: appearance normal, both eyes and all related structures Neck Neck: Yes normal visual inspection Resp Effort & Inspection: normal respiratory effort, able to speak in complete sentences, no tracheal deviation and symmetric chest movement Auscultation: clear to auscultation bilaterally Cardio Jugular venous distension: no JVD Rate: regular rate Rhythm: regular rhythm Heart sounds: S1 normal heart sound present, S2 normal heart sound present, no gallops and no murmurs GI Other: removable back brace in place at time of visit. Inspection: Yes normal to inspection, No distended and Yes obesity Palpation (GI): Soft to palpation, not firm, nontender and No hepatosplenomegaly present Auscultation: normal bowel sounds Neuro General: patient oriented x3 Gait exam (Neuro): Normal gait present Extrem Other: brace in place to LLE. Psych Appearance: grossly normal Mental Status: mental status grossly normal Speech and movement: Normal speech and movement present Affect: normal affect Attitude: cooperative Thought process: Normal thought process present Thought content: Normal thought content present Insight: Good insight present (Psych) Judgement: Good judgement present (Psych) Results Reviewed Results Reviewed: Laboratory Tests 01/31/25 17:09 WBC 5.2 RBC 4.03 L Hgb 12.7 Hct 37.6 MCV 93.3 MCH 31.5 MCHC 33.8 RDW 13.0 Plt Count 175 D MPV 10.6 Sodium 139 Potassium 4.4 Chloride 110 H Carbon Dioxide 22 Anion Gap 11 L BUN 11 Creatinine 0.69 Estim Creat Clear Calc 87.2 Estimated GFR > 60 Random Glucose 89 Calcium 8.7 D Total Bilirubin 0.4 AST 26 ALT 17 Alkaline Phosphatase 69 Total Protein 6.7 Albumin 3.8 Date of Service: 01/31/25 Procedure(s): CT abdomen pelvis wo IV con cc: Ariadna Barker; Jam Viveros-C~ Report Number: [id number]: Total DLP = 515.00 mGy-cm CLINICAL HISTORY: constipation hx of bowel obstruciton CT abdomen and pelvis without contrast Comparison: 01/11/2025 Findings: The lung bases are clear. Solid organs are within normal limits. There are no abnormal findings in the gallbladder fossa. No renal stones. No bowel obstruction, pneumoperitoneum, or pneumatosis. Pelvic contents unremarkable. Normal appendix. No acute fracture. IMPRESSION: No acute findings. Assessment & Plan Assessment & Plan (1) Abdominal pain: Code(s): R10.9 - Unspecified abdominal pain Category: Medical Qualifiers: Abdominal location: generalized Qualified Code(s): R10.84 - Generalized abdominal pain Plan: Chronic abdominal pain, likely secondary to constipation. Multiple prior abdominal surgeries increase risk for motility disturbance. Recent imaging (CT ?3, upper GI/small bowel series) ruled out obstruction or acute pathology. Colonic diverticulosis noted, without diverticulitis. Will continue aggressive bowel regimen as below. H. pylori testing ordered Screening labs ordered due to unknown GI family history No signs of obstruction, stricture, or mass based on imaging No colorectal cancer (CRC) screening to date Will review CRC screening and preparation at next visit (2) Constipation: Code(s): K59.00 - Constipation, unspecified Category: Medical Qualifiers: Constipation type: chronic idiopathic constipation Qualified Code(s): K59.04 - Chronic idiopathic constipation Plan: Chronic with recent exacerbation in symptoms. We will adjust bowel regimen to include senna S and MiraLax. We discussed fiber supplement during our visit but after some thought will hold given gastric by pass history. Reinforced lifestyle modifications to promote regularity: -higher fiber diet, examples provided -adequate hydration with water -150 minutes of moderate intensity exercise per week (3) Acid reflux: Code(s): K21.9 - Gastro-esophageal reflux disease without esophagitis Category: Medical Qualifiers: Esophagitis presence: esophagitis presence not specified Qualified Code(s): K21.9 - Gastro-esophageal reflux disease without esophagitis Plan: Pantoprazole 40 mg b.i.d. to be held for 2 weeks in preparation for H. pylori testing. Sucralfate prescribed for reflux coverage during PPI hold. Sales Manager patient on timing of acid suppression (empty stomach, 30?60 min before meals). We will also obtain endoscopy at time of colonoscopy screening. Plan Follow-up with provider in 3 weeks or sooner if needed Time: I spent a total of 60 minutes on the date of encounter which includes: Preparing to see the patient (reviewed previous documentation, test results and medical history) Performing a medically appropriate exam and/or evaluation Ordering medications, tests, and procedures Documenting clinical information in the health record Orders: Orders Calprotectin, Fecal Today R10.84 - Generalized abdominal pain C Reactive Protein Today R10.84 - Generalized abdominal pain Transglutaminase IgA Today R10.84 - Generalized abdominal pain TSH reflex Free T4 Today K59.04 - Chronic idiopathic constipation Medications: New sennosides-docusate sodium 8.6-50 mg (Senna with Docusate Sodium) 2 tab-caps (2 x 8.6-50 mg) PO BEDTIME PRN 180 tabs 0RF constipation Discontinued docusate sodium (Colace) Discontinued Reason: Duplicate 200 mg (2 x 100 mg) PO BID 30 days PRN 60 caps 3RF constipation sennosides (Senna Lax) Discontinued Reason: Duplicate 8.6 mg PO BID PRN 60 tabs 3RF constipation K59.04 - Chronic idiopathic constipation Patient Instructions: sucralfate instructions: Administer on an empty stomach. Shake suspension well before use. Do not administer antacids within 30 minutes of administration of sucralfate. In general, separate administration of other oral medications and sucralfate by at least 2 hours Coding Level of Care Code New Pt New Pt Level 5 (05540) Patient Type New Diagnoses Generalized abdominal pain R10.84 Abdominal location: generalized Chronic idiopathic constipation K59.04 Constipation type: chronic idiopathic constipation Gastroesophageal reflux disease, unspecified whether esophagitis present K21.9 Esophagitis presence: esophagitis presence not specified
[2025-03-15 08:19] VITALS: BP 93/64; PULSE 82; O2SAT 97; BMI 28.2
--- OUTSIDE RECORDS SUMMARY | 2025-03-15 08:29 | XMS_ITS | Clinical Summary ---
Author Organization [facility] Address [address] [place] [address] Care Team Providers Care Microbiology Lab Analyst Name Role Phone Unavailable Primary Care Provider [...]
--- OUTSIDE RECORDS SUMMARY | 2025-03-15 08:29 | XMS_ITS | Clinical Summary ---
Author Organization [facility] Address [address] [place] [address] Care Team Providers Care Meteorological Technician Name Role Phone Unavailable Primary Care [...]
== END 2025-03-15 09:22 | disposition home or self-care (01) ==
PROVIDERS: Visit Provider Nurse Practitioner Family
DX: R10.84 Generalized abdominal pain (principal); K59.04 Chronic idiopathic constipation; K21.9 Gastro-esophageal reflux disease without esophagitis
CPT/HCPCS: 99205

== ENCOUNTER → 2025-03-15 08:15 | Outpatient (BNVA) | payer OTHER, SELFPAY | PROVIDERS: Visit Provider Nurse Practitioner Family ==

== ENCOUNTER 2025-03-20 14:37 | Outpatient (AMB) | payer OTHER, SELFPAY ==
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
[2025-03-20 14:42] VITALS: BP 124/78; PULSE 95; RESP 16; O2SAT 96; BMI 28.9
--- OUTSIDE RECORDS SUMMARY | 2025-03-20 15:46 | XMS_ITS | Clinical Summary ---
Author Organization [facility] Address [address] [place] [address] Care Team Providers Care Desk Officer Name Role Phone Unavailable Primary Care Provider [...]
--- OUTSIDE RECORDS SUMMARY | 2025-03-20 15:46 | XMS_ITS | Clinical Summary ---
Author Organization [facility] Address [address] [place] [address] Care Team Providers Care Weaver Dobby Loom Name Role Phone Unavailable Primary Care Provider [...]
== END 2025-03-20 15:27 | disposition home or self-care (01) ==
LOC: HO.PMC 14:37
PROVIDERS: Visit Provider Registered Nurse Emergency
DX: R51.9 Headache, unspecified (principal); G89.29 Other chronic pain; S83.422A Sprain of lateral collateral ligament of left knee, initial encounter; M25.562 Pain in left knee; S32.030A Wedge compression fracture of third lumbar vertebra, initial encounter for closed fracture; S46.819A Strain of other muscles, fascia and tendons at shoulder and upper arm level, unspecified arm, initial encounter; M54.2 Cervicalgia
CPT/HCPCS: 99204; G2211

== ENCOUNTER 2025-03-21 14:42 | Outpatient (AMB) | payer OTHER, SELFPAY ==
[2025-03-21 14:49] VITALS: BP 118/74; PULSE 88; RESP 18; TEMP 37.1; O2SAT 97; BMI 29.8
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
--- OUTSIDE RECORDS SUMMARY | 2025-03-21 15:24 | XMS_ITS | Clinical Summary ---
Author Organization [facility] Address [address] [place] [address] Care Team Providers Care Dining Room Coordinator Name Role Phone Unavailable Primary Care Provider [...]
--- OUTSIDE RECORDS SUMMARY | 2025-03-21 15:24 | XMS_ITS | Clinical Summary ---
Author Organization [facility] Address [address] [place] [address] Care Team Providers Care Websphere Commerce Architect Name Role Phone Unavailable Primary Care Provider [...]
== END 2025-03-21 16:01 | disposition home or self-care (01) ==
LOC: HO.HMCH 14:43
DX: Z00.00 Encounter for general adult medical examination without abnormal findings (principal); Z12.31 Encounter for screening mammogram for malignant neoplasm of breast; Z01.419 Encounter for gynecological examination (general) (routine) without abnormal findings; M54.2 Cervicalgia; S32.030D Wedge compression fracture of third lumbar vertebra, subsequent encounter for fracture with routine healing; M25.562 Pain in left knee; G44.229 Chronic tension-type headache, not intractable; K21.9 Gastro-esophageal reflux disease without esophagitis; F41.9 Anxiety disorder, unspecified; S83.422A Sprain of lateral collateral ligament of left knee, initial encounter; J45.42 Moderate persistent asthma with status asthmaticus; G47.00 Insomnia, unspecified; K59.04 Chronic idiopathic constipation

== ENCOUNTER 2025-04-01 14:49 | Outpatient (REF) | payer OTHER, SELFPAY ==
--- OUTSIDE RECORDS SUMMARY | 2025-04-02 16:10 | XMS_ITS | Clinical Summary ---
Author Organization [facility] Address [address] [place] [address] Care Team Providers Care Outreach Rep Name Role Phone Unavailable Primary Care Provider [...]
--- OUTSIDE RECORDS SUMMARY | 2025-04-02 16:10 | XMS_ITS | Clinical Summary ---
Author Organization [facility] Address [address] [place] [address] Care Team Providers Care Publications Inspector Name Role Phone Unavailable Primary Care Provider [...]
[2025-04-03 08:49] LABS: H Pylori Breath Test Negative (Negative)
== END 2025-04-01 14:50 | disposition home or self-care (01) ==
LOC: HO.LNP 14:49
PROVIDERS: Visit Provider Nurse Practitioner Family
DX: R10.84 Generalized abdominal pain (principal)
CPT/HCPCS: 83013; 99211

== ENCOUNTER 2025-04-01 14:49 | Outpatient (AMB) | payer OTHER, SELFPAY ==
--- OUTSIDE RECORDS SUMMARY | 2025-04-01 14:53 | XMS_ITS | Clinical Summary ---
Author Organization [facility] Address [address] [place] [address] Care Team Providers Care Administrative Job Titles Name Role Phone Unavailable Primary Care Provider [...]
--- OUTSIDE RECORDS SUMMARY | 2025-04-01 14:53 | XMS_ITS | Clinical Summary ---
Author Organization [facility] Address [address] [place] [address] Care Team Providers Care Yarn Dumper Name Role Phone Unavailable Primary Care Provider [...]
--- NOTE | 2025-04-01 15:01 | AM.OFFVISNUR ---
Intake Visit Reasons: h pylori Allergies hydrocodone [From Vicodin] Allergy (Verified 03/21/25 15:12) Anaphylaxis Penicillins Allergy (Verified 03/21/25 15:12) Rash Nursing Note Patient presents for collection of H Pylori breath test. Patient has been fasting for 1 hour (nothing to eat, drink, no chewing gum or smoking) has not taken any antacid medication for at least 2 weeks and has no allergies to artificial sweeteners.?? Assessment & Plan Assessment & Plan (1) Abdominal pain: Code(s): R10.9 - Unspecified abdominal pain Category: Medical Qualifiers: Abdominal location: generalized Qualified Code(s): R10.84 - Generalized abdominal pain Plan Patient presents for collection of H Pylori breath test. Patient has been fasting for 1 hour (nothing to eat, drink, no chewing gum or smoking) has not taken any antacid medication for at least 2 weeks and has no allergies to artificial sweeteners.???This test checks for an overgrowth of bacteria in your stomach. We all have bacteria but some may have more than others. It is treatable. if the test comes back negative there is nothing else to do. If the test result is positive we will treat you with 2 antibiotics and a medication to decrease the acid in your stomach (PPI) for 2 weeks. Two weeks after you have completed the treatment we will retest you to make sure the overgrowth has resolved. Orders: Orders H Pylori Breath Test Today Patient Instructions: Process for specimen collection and reason for testing was explained to the patient. Specimen collection. Patient instructed to take a deep breath and then exhale into the blue bag, filling it up as much as possible. Patient instructed to drink a mixture of water and the artificial sweetener with a straw. A 15 minute wait period was observed. Patient instructed to take a deep breath and then exhale into the pink bag, filling it up as much as possible. Coding Level of Care Code Established Pt Est Pt Level 1 (92300) Patient Type Established Medical Decision Making Straight Forward Diagnoses Generalized abdominal pain R10.84 Abdominal location: generalized
== END 2025-04-01 15:04 | disposition home or self-care (01) ==
LOC: HO.HGI 14:50
PROVIDERS: Visit Provider Nurse Practitioner Family
DX: R10.84 Generalized abdominal pain (principal)

== ENCOUNTER 2025-04-05 13:16 | Outpatient (AMB) | payer OTHER, SELFPAY ==
[2025-04-05 13:18] VITALS: BP 116/76; PULSE 84; RESP 18; TEMP 36.9; O2SAT 97; BMI 29.5
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
--- OUTSIDE RECORDS SUMMARY | 2025-04-05 13:19 | XMS_ITS | Clinical Summary ---
Author Organization [facility] Address [address] [place] [address] Care Team Providers Care Shuttle Inspector Name Role Phone Unavailable Primary Care [...]
== END 2025-04-05 14:40 | disposition home or self-care (01) ==
LOC: HO.HMCH 13:17
DX: R10.84 Generalized abdominal pain (principal); F41.8 Other specified anxiety disorders; J45.42 Moderate persistent asthma with status asthmaticus; S32.030A Wedge compression fracture of third lumbar vertebra, initial encounter for closed fracture; S83.512D Sprain of anterior cruciate ligament of left knee, subsequent encounter; G44.209 Tension-type headache, unspecified, not intractable

== ENCOUNTER → 2025-04-05 13:16 | Outpatient (BNVA) | payer OTHER, SELFPAY | DX: Z13.89 Encounter for screening for other disorder (principal) ==

== ENCOUNTER 2025-05-06 10:19 | Outpatient (AMB) | payer OTHER, SELFPAY ==
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
[2025-05-06 10:26] VITALS: BP 100/60; TEMP 36.2; BMI 28.9
--- OUTSIDE RECORDS SUMMARY | 2025-05-06 11:32 | XMS_ITS | Clinical Summary ---
Author Organization [facility] Address [address] [place] [address] Care Team Providers Care Cruise Agent Name Role Phone Unavailable Primary Care Provider [...]
== END 2025-05-06 11:25 | disposition home or self-care (01) ==
LOC: HO.HMCH 10:20
DX: R20.0 Anesthesia of skin (principal); S16.1XXA Strain of muscle, fascia and tendon at neck level, initial encounter; R51.9 Headache, unspecified

== ENCOUNTER → 2025-05-06 10:19 | Outpatient (BNVA) | payer OTHER, SELFPAY | DX: Z13.89 Encounter for screening for other disorder (principal) ==

== ENCOUNTER 2025-05-10 07:19 | Day surgery (SDC) | payer OTHER, SELFPAY ==
--- OUTSIDE RECORDS SUMMARY | 2025-05-03 13:00 | XMS_ITS | Clinical Summary ---
Author Organization [facility] Address [address] [place] [address] Care Team Providers Care Beam Warper Name Role Phone Unavailable Primary Care Provider [...] 84 07/09/2024 6:33 PM EDT Temperature 36.9 C (98.4 F) 07/09/2024 6:33 PM EDT Respiratory Rate 18 07/09/2024 6:33 PM EDT [...] Vaccine (1 of 2) 2023 Influenza Vaccine (Season Ended) 2025 Pneumococcal Vaccine Aged Out No long er eligible based on patient's age to complete this topic RSV Ped < 20 months Aged Out No longe r eligible based on patient's age to complete this topic
[2025-05-08 13:54] VITALS: BMI 28.9
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
[2025-05-10] VITALS (18 sets, daily range): BP systolic 104–123; BP diastolic 56–74; PULSE 67–83; RESP 12–20; TEMP 36.7–36.8; O2SAT 90–98; BMI 27.0
--- NOTE | ~2025-05-10 | FL_ITS ---
EXAMINATION: XR FLUOROSCOPY WITH IMAGES CLINICAL INFORMATION: Kyphoplasty COMPARISON: None. TECHNIQUE: Fluoroscopy provided to: Dr. Coyle Fluoroscopy time: 3 minutes DAP: 21.3 Gycm2 Images: 2 FINDINGS: 2 fluoroscopic spot images lumbar spine taken during kyphoplasty. Please refer to the full operative report for details. FL/FL guidance in OR IMPRESSION: Fluoroscopic guidance. Electronically signed by: Griffin Leahy MD 05/10/2025 11:41 AM EDT
[2025-05-10] MEDS: Albuterol Sulfate (0.083%) 2.5 MG/3 ML VIAL.NEB INHALE (08:14)
--- NOTE | 2025-05-10 09:07 | P.HPSUR_ITS ---
Pre-Procedural Eval Section A - 24 Hr Update-Section A only Date of Service: 05/10/25 The patient is an INPATIENT: No Changes since office visit: Yes Patient answered all questions The patient has been examined within 24 hours of the surgical procedure. The History & Physical has been completed within 30 days and I have reviewed it.: No Section B - Complete if H&P > 30 days Chief Complaint: Wedge compression fracture of third lumbar vertebr Details of Present Illness: As above Relevant Family History (Specify if Yes): No Relevant Social History: Other (specify) Present Medications: None Medical History: No relevant PMH History of Previous Operations: No relevant previous surgery Allergies: Allergies Allergy/AdvReac Type Severity Reaction Status Date / Time hydrocodone (From Vicodin) Allergy Anaphylaxis Verified 05/10/25 07:49 Penicillins Allergy Rash Verified 05/10/25 07:49 Review of Systems Sugical H&P ROS: Negative: Constitution, Cardiovascular, Hem-Onc, Allergic/Immunologic, Genitourinary, Musculoskeletal, Integumentary, Endocrine and Eyes/Ears/Nose/Throat and Yes, Specify: Respiratory (Asthma), Neurological (Headaches), Psychiatric (Anxiety panic attacks) and Gastrointestinal (History of gastric bypass) Exam Surgical H&P Exam: Normal: HEENT, Normal: Heart, Normal: Lungs, Normal: Extremit ies, Normal: Abdomen, Normal: Skin and Normal: Neurological Plan Diagnosis/Plan: Unchanged I have reviewed the history and physical and performed a pertinent physical examination on my patient. No changes have occurred unless specified. Time Spent With Patient Time: Total time managing care of this patient today _10___ minutes.
[2025-05-10] MEDS: Lactated Ringers 1,000 ML 100 ML IVCONT (09:51)
[2025-05-10] MEDS: Clindamycin Phosphate/D5W 900 MG/50 ML PIGGYBACK 50 MG IV (10:00)
--- NOTE | 2025-05-10 11:23 | P.BOP_ITS ---
Brief Operative Note Date of Service: 05/10/25 Pre-op diagnosis: Compression fracture L3 vertebral body Procedure: L3 kyphoplasty Surgeon: Sharif Coyle MD Anesthesia: GETA Was an [employer] Retailer used for this Procedure?: No Estimated blood loss (mL): 16 Pathology: none sent Condition: stable Disposition: PACU
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
[2025-05-10] MEDS: ondansetron HCL 4 MG/2 ML VIAL IVPUSH (11:30)
[2025-05-10] MEDS: fentaNYL citrate/PF 100 MCG/2 ML VIAL 25 MCG IVPUSH ×5 (11:46→12:10)
[2025-05-10] MEDS: Haloperidol Lactate 5 MG/ML VIAL 1 MG IVPUSH (12:16)
== END 2025-05-10 13:43 | disposition home or self-care (01) ==
PROVIDERS: Visit Provider Anesthesiology
PROC: (CPT 22514; principal; 2025-05-10 09:20)
DX: S32.030A Wedge compression fracture of third lumbar vertebra, initial encounter for closed fracture (principal); S83.422A Sprain of lateral collateral ligament of left knee, initial encounter; S46.819A Strain of other muscles, fascia and tendons at shoulder and upper arm level, unspecified arm, initial encounter; V49.69XA Unspecified car occupant injured in collision with other motor vehicles in traffic accident, initial encounter; Y93.89 Activity, other specified; Y92.410 Unspecified street and highway as the place of occurrence of the external cause; Y99.9 Unspecified external cause status; M25.562 Pain in left knee; G44.309 Post-traumatic headache, unspecified, not intractable; M54.2 Cervicalgia; F41.9 Anxiety disorder, unspecified; G47.00 Insomnia, unspecified; R19.00 Intra-abdominal and pelvic swelling, mass and lump, unspecified site; G89.29 Other chronic pain; M79.7 Fibromyalgia; K59.09 Other constipation; K21.9 Gastro-esophageal reflux disease without esophagitis; Z79.51 Long term (current) use of inhaled steroids; Z79.899 Other long term (current) drug therapy; Z99.89 Dependence on other enabling machines and devices; Z88.0 Allergy status to penicillin; Z88.5 Allergy status to narcotic agent; Z98.84 Bariatric surgery status; Z90.49 Acquired absence of other specified parts of digestive tract; Z98.890 Other specified postprocedural states; Z87.891 Personal history of nicotine dependence
CPT/HCPCS: 22514; 94640; C1713; J0131; J0736; J1100; J1630; J2003; J2250; J2405; J2704; J2795; J3010; J3370; Q9967

== ENCOUNTER → 2025-05-10 07:19 | Outpatient (BNV) | payer OTHER, SELFPAY | PROVIDERS: Visit Provider Anesthesiology | DX: S32.030A Wedge compression fracture of third lumbar vertebra, initial encounter for closed fracture (principal) | CPT/HCPCS: 22514 ==

== ENCOUNTER 2025-05-16 13:47 | Outpatient (AMB) | payer OTHER, SELFPAY ==
--- OUTSIDE RECORDS SUMMARY | 2025-05-16 13:52 | XMS_ITS | Clinical Summary ---
Author Organization [facility] Address [address] [place] [address] Care Team Providers Care Quality Control Tech Raw Materials Name Role Phone Unavailable Primary Care Provider [...]
--- OUTSIDE RECORDS SUMMARY | 2025-05-16 13:52 | XMS_ITS | Clinical Summary ---
Author Organization [facility] Address [address] [place] [address] Care Team Providers Care Advisory Application Developer Name Role Phone Unavailable Primary Care Provider [...] (1 of 2) 2023 Influenza Vaccine (#1) 2025 Pneumococcal Vaccine Aged Out No long er eligible based on patient's age to complete this topic RSV Ped < 20 months Aged Out No longe r eligible based on patient's age to complete this topic
--- OUTSIDE RECORDS SUMMARY | 2025-05-16 13:52 | XMS_ITS ---
Author Name [facility] Organization Unknown Results Test Name/Text Value Interpretation Date Range Source Troponin I SerPl HS-mCnc 4.0 ng/L Normal 07/10/2024 0 - 14 [facility] BUN SERPL MCNC 10.0 mg/dL Normal 07/10/2024 7 - 17 CTT HS[facility] ANION GAP SERPL SCNC 12.0 mmol/L Normal 07/10/2024 5 - 14 [facility] CHLORIDE SERPL SCNC 104.0 mmol/L Normal 07/10/2024 98 - 1 07 [facility] CREAT SERPL MCNC 0.6 mg/dL Normal 07/10/2024 0.5 - 1 CT [facility] HCO3 SER SCNC 25.0 mmol/L Normal 07/10/2024 24 - 32 CTT HSFRAN POTASSIUM SERPL SCNC 3.9 mmol/L Normal 07/10/2024 3.5 - 5.1 [facility] Glomerular filtration rate/1.73 sq M. predicted 109.0 Normal 07/10/2024 60 - [facility] GLUCOSE SERPL MCNC 79.0 mg/dL Normal 07/10/2024 70 - 199 [facility] SODIUM SERPL SCNC 141.0 mmol/L Normal 07/10/2024 135 - 14 5 [facility] CALCIUM SERPL MCNC 9.7 mg/dL Normal 07/10/2024 8.4 - 10.2 [facility] NEUTROPHILS NFR BLD AUTO 52.5 % Normal 07/10/2024 44 - 74 [facility] MCH RBC QN AUTO 33.3 pg Above high normal 07/10/2024 25 - 33 [facility] HCT VFR BLD AUTO 41.4 % Normal 07/10/2024 37 - 47 [facility] RBC NO. BLD AUTO 4.3 M/uL Normal 07/10/2024 4.2 - 5.4 CT [facility] LYMPHOCYTES NO. BLD AUTO 1.7 K/uL Normal 07/10/2024 1 - 3.2 [facility] EOSINOPHIL NO. BLD AUTO 0.1 K/uL Normal 07/10/2024 0 - 0.5 [facility] WBC NO. BLD AUTO 4.9 K/uL Normal 07/10/2024 4 - 10.5 CT [facility] PLATELET NO. BLD AUTO 216.0 K/uL Normal 07/10/2024 150 - 450 [facility] MONOCYTES NFR BLD AUTO 10.2 % Normal 07/10/2024 2 - 12 [facility] PMV BLD AUTO 9.3 fL Normal 07/10/2024 7.4 - 11.4 [facility] DAYANNA MCV RBC AUTO 96.2 fL Normal 07/10/2024 78 - 100 [facility] R[facility] LYMPHOCYTES NFR BLD AUTO 34.9 % Normal 07/10/2024 20 - 48 [facility] RDW RBC AUTO RTO 14.0 % Normal 07/10/2024 12.1 - 16.2 [facility] BASOPHILS NFR BLD AUTO 0.6 % Normal 07/10/2024 0 - 2 [facility] BASOPHILS IN BLOOD BY AUTOMATED COUNT 0.0 K/uL Normal 07/10/2024 0 - 0.2 [facility] MONOCYTES NO. BLD AUTO 0.5 K/uL Normal 07/10/2024 0 - 0.8 [facility] MCHC RBC AUTO MCNC 34.6 g/dL Normal 07/10/2024 32 - 36 [facility] NEUTROPHILS NO. BLD AUTO 2.6 K/uL Normal 07/10/2024 1.8 - 7.8 [facility] DIFFERENTIAL TYPE AUTOMATED Normal 07/10/2024 C [facility] EOSINOPHIL NFR BLD AUTO 1.8 % Normal 07/10/2024 0 - 6 [facility] HGB BLD MCNC 14.3 g/dL Normal 07/10/2024 12.5 - 16 [facility] MAGNESIUM SERPL MCNC 1.9 mg/dL Normal 07/10/2024 1.7 - 2.8 [facility] FLUAV RNA Nph Ql AIDAN+non-probe Not Detected Normal 07/10/2024 [facility] RSV RNA Nph Ql AIDAN+non-probe Not Detected Normal 07/10/2024 [facility] FLUBV RNA Nph Ql AIDAN+non-probe Not Detected Normal 07/10/2024 [facility] Service [facility] XXX-Imp Tim Doris M Normal 07/10/2024 [facility] SPECIMEN SOURCE XXX NASOPHARYNGEAL Normal 07/09/2024 [facility] History of Medication Use Medication Directions Dispensed Refills Start Date End Date Stat us traZODone (DESYREL) 50 MG tablet Take 1 tablet (50 mg total) by mouth every night at bedtime for 30 days. 07/10/2024 08/10/2024 active acetaminophen (TYLENOL) tablet 650 mg 650 mg, Oral, Once, On Tue07/09/24 at 2100, For 1 dose 07/10/2024 07/10/2024 completed LORazepam (ATIVAN) 2 MG/ML injection 0.5 mg 0.5 mg, Intravenous, Once, On Tue07/09/24 at 2100, For 1 dose 07/10/2024 07/10/2024 completed melatonin 3 MG TABS tablet Take 1 tablet (3 mg total) by mouth every night at bedtime. 07/10/2024 active ondansetron (ZOFRAN) 8 MG tablet Take 0.5 tablets (4 mg total) by mouth every 8 (eight) hours as needed for nausea. 07/10/2024 active Allergies Allergen Reaction Severity Comment Documented Date Source Statu s PENICILLINS RASH Per states she gets rash from Medication 07/09/2024 [facility] active HYDROCODONE-ACETAM INOPHEN RASH [facility] Problems Problem Status Onset Date Problem Type Date of Resoluti on Source Chest pain active EncounterDiagnosisAct [facility] Grief reaction active EncounterDiagnosisAct [facility] Encounters Encounter Type Encounter Reason Primary Diagnosis Location Date Emergency Adjustment disorder with depressed mood [place]ment [place] with [place] [facility] [place] Care Team Organization Name Specialty Phone Email Start Date End [place] [facility] [place] [facility] [place] [facility]
[2025-05-16 13:59] VITALS: BP 108/74; PULSE 91; RESP 16; TEMP 36.2; O2SAT 98; BMI 28.4
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
== END 2025-05-16 15:05 | disposition home or self-care (01) ==
LOC: HO.HMCH 13:48
DX: S32.030A Wedge compression fracture of third lumbar vertebra, initial encounter for closed fracture (principal); S16.1XXA Strain of muscle, fascia and tendon at neck level, initial encounter; S46.812A Strain of other muscles, fascia and tendons at shoulder and upper arm level, left arm, initial encounter; Z04.3 Encounter for examination and observation following other accident; F41.9 Anxiety disorder, unspecified; R51.9 Headache, unspecified; R42 Dizziness and giddiness

== ENCOUNTER 2025-05-22 08:37 | Outpatient (REF) | payer OTHER, SELFPAY ==
--- OUTSIDE RECORDS SUMMARY | 2025-05-22 08:51 | XMS_ITS | Clinical Summary ---
Author Organization [facility] Address [address] [place] [address] Care Team Providers Care School Transportation Director Name Role Phone Unavailable Primary Care Provider [...]
--- OUTSIDE RECORDS SUMMARY | 2025-05-22 08:52 | XMS_ITS | Clinical Summary ---
Author Organization [facility] Address [address] [place] [address] Care Team Providers Care Policy Change Clerk Name Role Phone Unavailable Primary Care [...] Vaccine (1 - 2023-2 5 season) 2024 Colorectal Cancer Screening: Colonoscopy 09/09/2024 Depression Screening 09/09/2024 HIV Screening 09/09/2024 Hepatitis C Screening 09/09/2024 Social Influencers of Health Screening 09/09/2024 Influenza Vaccine (#1) 2025 HIB Vaccines Aged Out No longer [...]
[2025-05-22 08:58] LABS: MANUAL DIFF FLAG NO
[2025-05-22 09:49] LABS: Hematocrit 38.1 % (37.0-47.0); Hemoglobin 12.8 g/dl (12.0-16.0); Imm Gran Abs Auto 0.00 X10*3/uL (0.00-0.03); Imm Gran Pct Auto 0.0 % (0.0-0.4); Lymphocytes Absolute Auto 1.6 X10*3/uL (1.2-4.9); Mean Corpuscular HGB Conc 33.6 g/dl (31.0-35.0); Mean Corpuscular Hemoglobin 31.4 pg (27.0-33.0); Mean Corpuscular Volume 93.4 fL (80.0-98.0); NRBC Abs Auto 0.000 X10*3/uL (0.0-0.012); NRBC Pct Auto 0.0 /100WBC (0.0-0.2); Platelet Count 199 X10*3/uL (160-400); Red Blood Count 4.08 X10*6/uL (4.20-5.50); White Blood Count 4.2 X10*3/uL (4.8-10.8)
[2025-05-22 10:38] LABS: Alanine Aminotransferase 21 U/L (0-31); Albumin Level 3.9 g/dL (3.5-5.0); Alkaline Phosphatase 85 U/L (39-117); Anion Gap 12 (12-20); Aspartate Amino Transferase 26 U/L (5-31); Blood Urea Nitrogen 8 mg/dL (9-16); Calcium 8.9 mg/dL (8.4-10.2); Carbon Dioxide 26 mmol/L (22-29); Chloride 108 mmol/L (96-108); Cholesterol 193 mg/dL (<200); Estimated Glomerular Filt Rate > 60; HDL Cholesterol 58 mg/dL (>40); Potassium 3.8 mmol/L (3.3-5.1); Sodium 142 mmol/L (135-145); Total Protein 6.1 g/dL (6.5-8.0); Triglycerides 74 mg/dL (<150)
[2025-05-22 10:49] LABS: Appearance Urine Cloudy; Glucose Urine UA Negative (Negative); PH 5.5 (5.0-9.0); Specific Gravity - Urine >= 1.030 (1.005-1.025); UMIC TRIGGER UACC YES
[2025-05-22 10:57] LABS: Folate 7.5 ng/mL (> or = 4.0); Vitamin B12 738 pg/mL (200-900)
== END 2025-05-22 08:38 | disposition home or self-care (01) ==
LOC: HO.LAB 08:37
PROVIDERS: Nurse Practitioner Family
DX: S32.030D Wedge compression fracture of third lumbar vertebra, subsequent encounter for fracture with routine healing (principal); S46.812D Strain of other muscles, fascia and tendons at shoulder and upper arm level, left arm, subsequent encounter; M54.2 Cervicalgia; Z98.890 Other specified postprocedural states; R10.84 Generalized abdominal pain; F41.8 Other specified anxiety disorders; F41.0 Panic disorder [episodic paroxysmal anxiety]; R42 Dizziness and giddiness; G89.29 Other chronic pain; G44.209 Tension-type headache, unspecified, not intractable; S83.422A Sprain of lateral collateral ligament of left knee, initial encounter; S83.512A Sprain of anterior cruciate ligament of left knee, initial encounter; J45.42 Moderate persistent asthma with status asthmaticus; M79.7 Fibromyalgia; Z98.84 Bariatric surgery status; K59.04 Chronic idiopathic constipation
CPT/HCPCS: 36415; 80053; 80061; 81001; 82306; 82607; 82746; 84207; 84443; 85025; 86140; 86364

== ENCOUNTER 2025-05-22 09:19 | Outpatient (AMB) | payer OTHER, SELFPAY ==
[2025-05-22 09:20] VITALS: BP 127/59; PULSE 88; RESP 16; O2SAT 94; BMI 28.3
--- NOTE | 2025-05-22 09:20 | MHC.OFFVIS ---
Vital Signs 05/22/25 09:20 Height 5 ft 2 in Weight 155 lb BMI 28.3 BP 127/59 L Blood Pressure Location Rt brachial Position Sitting Respiration 16 Pulse 88 Pulse Source Pulse Oximeter Pulse Oximetry (%) 94 Oxygen Delivery Method Room Air Intake Visit Reasons: S/p L3 Kyphoplasty 05/10/25 Electromechanical Inspector Required: No Allergies hydrocodone (From Vicodin) Allergy (Verified 05/22/25 09:25) Anaphylaxis Penicillins Allergy (Verified 05/22/25 09:25) Rash HPI Comments Details: The patient is a 50-year-old female presenting with follow-up after an L3 kyphoplasty procedure. The procedure was performed on May 10, 2025, and the patient reports persistent pain rated at 9/10, primarily in the lower back, waist, and pelvis region. She describes the pain as excruciating, particularly when sitting or standing, and notes a sensation of heat in the affected area. The patient also reports experiencing migraines, neck pain, and shoulder pain, with noticeable swelling on one side compared to the other. She experiences burning sensations in her arm and has difficulty performing daily activities such as brushing her hair or bathing due to pain and limited mobility. The patient has been taking tramadol, gabapentin, and metoprolol as prescribed, but reports only getting three to four hours of sleep per night due to pain. She has not yet started physical therapy for her neck, as the referral has not been processed, and is awaiting nerve testing scheduled for July. Additionally, the patient reports constipation lasting six to seven days, which exacerbates her back pain. She is scheduled for a colonoscopy and endoscopy in June to investigate gastrointestinal issues. The patient uses a brace and cane for mobility but is advised to limit their use to prevent muscle weakening. - Pain onset: Post-kyphoplasty procedure on May 10, 2025 - Pain quality: Excruciating, with a sensation of heat - Primary location: Lower back, waist, and pelvis - Radiation: Pain extends to the neck and shoulder - Exacerbating factors: Sitting, standing, and constipation - Relieving factors: None mentioned - Interference: Limits daily activities such as bathing and brushing hair - Affect: Pain significantly impacts sleep, limiting it to three to four hours per night - Analgesia: Current medications include tramadol, gabapentin, and metoprolol; pain rated at 9/10 - Adverse Effects: None reported - Activities of Daily Living: Pain interferes with mobility and self-care activities - Aberrant Drug Related Behaviors: None reported [facility] Medical History Asthma Plantar fasciitis of left foot Closed left ankle fracture Acid reflux Tear of lateral collateral ligament of left knee Fibromyalgia History of small bowel obstruction Surgical History History of appendectomy H/O breast augmentation S/P cholecystectomy H/O gastric bypass Family History Mother Breast cancer Paternal Grandmother Breast cancer Throat cancer Other Mental health disorder Social History Household Members: Significant Other Housing: House Are you a primary manager medicare to a significant other at home: No Do you presently have visiting nurse or other home services: No Alcohol intake: never Comment: COUNTS CORRECT Patient Tobacco Use Status: Former Tobacco user Tobacco use type: Cigarette e-Cigarette/Vaping Use: Never Used Second Hand Smoke Exposure: Yes service: No Current occupational status: employed Cognitive needs: Yes (Cane/ Back Brace) Hearing needs: No Vision needs: No Review of Systems Const Details: - Musculoskeletal: Reports persistent lower back pain, neck pain, and shoulder pain - Neurological: Reports migraines and burning sensation in the arm - Gastrointestinal: Reports constipation lasting six to seven days Physical Exam Vital Signs: Last Vital Signs Pulse 88 05/22/25 09:20 Resp 16 05/22/25 09:20 BP 127/59 L 05/22/25 09:20 Pulse Ox 94 05/22/25 09:20 Oxygen Delivery Method Room Air 05/22/25 09:20 BMI result Body Mass Index 28.3 Wearing back brace which was removed by patient for physical exam. General: awake, alert, oriented. Answers questions appropriately. Fully engaged in examination. Skin: warm, dry, intact HEENT: Normocephalic. Hearing intact. Cardiac: External chest normal in appearance. Respiratory: No cough, audible wheezing or stridor. Abdomen: without gross distension. MS: No obvious swelling or deformities. Able to transition from sit to stand unassisted. Ambulates with bilaterally normal heel strike and toe off Antalgic gait Tenderness over L3 lumbar vertebrae. Neurological: Oriented to person, place, time and situation. Thought process intact. Ambulates with the use of a cane. Psychiatric: Appropriate mood and affect. Good judgment and insight. Surgical incisions healing well. Dressings removed, cleansed with ChloraPrep. Two sutures were removed. Patient tolerated well. New dressings applied. Results Reviewed Results Reviewed: 03/25/25 MRI lumbar spine INTERPRETATION: The conus shows normal tapering and ends at T12. Included cord has normal internal signal and cauda equina is unremarkable. No spinal canal collections or intradural masses. Maintained lordotic curvature. Mild anterior wedge compression deformity, 10-15% height loss, of L3. Vertebral body edema is restricted to the superior endplate and no extension into dorsal elements. There is no cortical retropulsion. Remainder of vertebral body heights and endplates intact. There is 1-2 mm degenerative anterolisthesis noted at L3-4. L5-S1: Mild-moderate disc degeneration with posterior bulge and an annular fissure. No posterior disc protrusion, significant spinal canal or foraminal narrowing. Facet joints maintain normal alignment and show no significant degeneration. L4-5: Disc height and hydration are preserved. No disc contour abnormality, spinal canal or foraminal stenosis is identified. L3-4: Mild disc degeneration with grade I anterolisthesis due to mild-moderate facet joint arthrosis. There is ligamentous hypertrophy but no significant central canal and mild biforaminal narrowing. No transiting or exiting nerve compression. L2-3: Preserved disc height and hydration. No posterior disc protrusion or significant spinal canal narrowing. Neural foramina adequately patent. There is no neural impingement. Facet joints maintain normal alignment and show no significant degeneration. L1-2 through T11-12: Facet joints are normal. Disc height and hydration are preserved. No disc contour abnormality, spinal canal or foraminal stenosis is identified. Facet joints are normal. No prevertebral/paraspinous soft tissue masses or collections. Included pelvis intact and marrow signal normal. Superior portions of sacroiliac joints show no effusions, subarticular edema or sclerosis. CONCLUSION: 1. Mild, acute-subacute L3 wedge compression fracture consistent with reported trauma. No cortical retropulsion or canal compromise. 2. Mild-moderate L5-S1 disc degeneration with posterior bulge and small annular fissure. 3. Grade 1 L3-4 anterolisthesis due to mild-moderate facet joint arthrosis with mild biforaminal narrowing. Assessment & Plan Assessment & Plan (1) Compression fracture of L3 vertebra: Code(s): S32.030A - Wedge compression fracture of third lumbar vertebra, initial encounter for closed fracture Category: Medical Qualifiers: Encounter type: subsequent encounter Fracture healing: with routine healing Qualified Code(s): S32.030D - Wedge compression fracture of third lumbar vertebra, subsequent encounter for fracture with routine healing (2) Status post kyphoplasty: Comment: L3 kypho performed 05/10/25 Code(s): Z98.890 - Other specified postprocedural states Category: Medical (3) Closed compression fracture of L3 vertebra: Code(s): S32.030A - Wedge compression fracture of third lumbar vertebra, initial encounter for closed fracture Category: Medical Qualifiers: Encounter type: initial encounter Qualified Code(s): S32.030A - Wedge compression fracture of third lumbar vertebra, initial encounter for closed fracture (4) Trapezius muscle strain: Code(s): S46.819A - Strain of other muscles, fascia and tendons at shoulder and upper arm level, unspecified arm, initial encounter Category: Medical Qualifiers: Encounter type: subsequent encounter Laterality: left Qualified Code(s): S46.812D - Strain of other muscles, fascia and tendons at shoulder and upper arm level, left arm, subsequent encounter (5) Cervicalgia: Code(s): M54.2 - Cervicalgia Category: Medical Plan The patient will undergo a CT scan of the back to assess the healing status post-kyphoplasty and to rule out any complications. A referral for physical therapy focusing on the neck and shoulder has been made, with an emphasis on dry needling to address muscle knots and swelling. The patient is advised to continue current medications and to limit the use of the brace to prevent muscle weakening. Further evaluation of gastrointestinal symptoms is planned with a colonoscopy and endoscopy scheduled for June. Follow-up appointments will be scheduled post-CT scan to reassess the patient's condition and adjust the treatment plan as necessary. Patient was informed and verbally consented to the use of an ambient scribe for clinic note documentation during this visit. Orders: Orders CT lumbar spine wo/w IV con Today S32.030D - Wedge compression fracture of third lumbar vertebra, subsequent encounter for fracture with routine healing, Z98.890 - Other specified postprocedural states Patient Instructions: - Continue taking prescribed medications as directed. - Limit the use of the brace to prevent muscle weakening. - Attend scheduled physical therapy sessions, focusing on neck and shoulder exercises. - Prepare for upcoming colonoscopy and endoscopy in June. - Follow up after the CT scan for further evaluation and treatment planning. Coding Level of Care Code Est Pt Level 3 (26577) Complex EM visit Add On G2211 Diagnoses Compression fracture of L3 vertebra with routine healing, subsequent encounter S32.030D Encounter type: subsequent encounter Fracture healing: with routine healing Status post kyphoplasty Z98.890 Closed compression fracture of L3 vertebra, initial encounter S32.030A Encounter type: initial encounter Strain of left trapezius muscle, subsequent encounter S46.812D Encounter type: subsequent encounter Laterality: left Cervicalgia M54.2
== END 2025-05-22 10:12 | disposition home or self-care (01) ==
LOC: HO.PMC 09:20
PROVIDERS: Visit Provider Registered Nurse Emergency
DX: S32.030D Wedge compression fracture of third lumbar vertebra, subsequent encounter for fracture with routine healing (principal); Z98.890 Other specified postprocedural states; S32.030A Wedge compression fracture of third lumbar vertebra, initial encounter for closed fracture; S46.812D Strain of other muscles, fascia and tendons at shoulder and upper arm level, left arm, subsequent encounter; M54.2 Cervicalgia
CPT/HCPCS: 99213

== ENCOUNTER 2025-06-06 08:44 | Outpatient (REF) | payer OTHER, SELFPAY ==
--- NOTE | ~2025-06-06 | XR_ITS ---
EXAMINATION: XR KNEE 3 VIEWS LEFT HISTORY: M25.569 - Pain in unspecified knee COMPARISON: There are no prior studies available for comparison. FINDINGS: Standing AP views of both knees and additional lateral and sunrise patellar views of the left knee are submitted. Osseous mineralization is normal. There is no fracture or dislocation. There is mild to moderate joint space narrowing involving the medial and patellofemoral compartments. The soft tissues are unremarkable. There is no joint effusion. XR/XR knee LT 3V IMPRESSION: Mild to moderate narrowing of the medial and patellofemoral compartments. Electronically signed by: Charli Oates MD 06/06/2025 11:27 AM EDT
--- OUTSIDE RECORDS SUMMARY | 2025-06-07 08:57 | XMS_ITS | Clinical Summary ---
Author Organization [facility] Address [address] [place] [address] Care Team Providers Care Casing Builder Name Role Phone Unavailable Primary Care Provider [...]
--- OUTSIDE RECORDS SUMMARY | 2025-06-07 08:57 | XMS_ITS | Clinical Summary ---
Author Organization [facility] Address [facility] [place] [address] Care Team Providers Care Multiple Effect Evaporator Operator Name Role Phone Jam Viveros APRN Primary Care Provider +1- [phone] Allergies Active Allergy Reactions Criticality Noted Date [...] any time in the past 12 m [facility], were you homeless or living in a snf (including now)? No 02/02/2025 IPV Inpatient Questions [...] - 199 mg/dL 02/04/2025 4:30 AM EDT [facility] Comment:Glucose Concentratio n >=200 mg/dL plus symptoms is consistent with Diabetes Mellitus. Blood Urea Nitrogen 9 8 - 18 mg/dL 02/04/2025 4:30 AM [facility] Creatinine 0.66(L) 0.70 - 1.20 mg/dL 02/04/2025 4:30 AM [facility] Sodium 140 135 - 145 mMol/L 02/04/2025 4:30 AM [facility] Potassium 4.2 3.5 - 5.0 mMol/L 02/04/2025 4:30 AM [facility] Chloride 104 98 - 107 mMol/L 02/04/2025 4:30 AM [facility] Carbon Dioxide 24 22 - 31 mMol/L 02/04/2025 4:30 AM [facility] Anion Gap 12 5 - 15 mMol/L 02/04/2025 4:30 AM [facility] Calcium 8.8 8.5 - 10.5 mg/dL 02/04/2025 4:30 AM [facility] Est Glomerular Filtration Rate - Female 106 mL/min/1. 73 m 02/04/2025 4:30 AM [facility] Comment: This patient's estimated GFR was [...] Mora DO CHEMISTRY ORDERABLE S Final Result [facility] [place] [address] from Last 3 Months or Most Recently Relevant to Health Maintenance Insurance [facility] OOS Advance Directives * Attempt Cardiopulmonary Resuscitation - Inpatient (Latest Code Status on File) Date Activated Date Inactivated Comments 02/02/2025 4:53 AM 02/05/2025 8:10 PM Question Answer Comments Code Status decision made by: Patient Care Teams Multiple Effect Evaporator Operator Relationship Specialty Start Date End Date Jam Viveros APRN [address] [place] [address] [place] [id number] PCP - General 02/01/25
--- OUTSIDE RECORDS SUMMARY | 2025-06-07 08:57 | XMS_ITS | Clinical Summary ---
Author Organization [facility] Address [address] [place] [address] Care Team Providers Care Mitten Sewer Name Role Phone Unavailable Primary Care Provider [...]
== END 2025-06-06 08:45 | disposition home or self-care (01) ==
LOC: HO.HOSX 08:44
PROVIDERS: Visit Provider Physician Assistant
DX: M25.562 Pain in left knee (principal); M17.12 Unilateral primary osteoarthritis, left knee; M23.92 Unspecified internal derangement of left knee; Z98.890 Other specified postprocedural states; W22.8XXD Striking against or struck by other objects, subsequent encounter
CPT/HCPCS: 73562

== ENCOUNTER 2025-06-06 10:49 | Outpatient (AMB) | payer OTHER, SELFPAY ==
[2025-06-06 11:06] VITALS: BMI 28.3
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
--- OUTSIDE RECORDS SUMMARY | 2025-06-06 11:41 | XMS_ITS | Clinical Summary ---
Author Organization [facility] Address [address] [place] [address] Care Team Providers Care Circuitry Negative Inspector Name Role Phone Unavailable Primary Care [...] season) 2024 Colorectal Cancer Screening: Colonoscopy 09/09/2024 HIV Screening 09/09/2024 Hepatitis C Screening 09/09/2024 Social Influencers of Health Screening 09/09/2024 Depression Screening 11/14/2024 Influenza Vaccine (#1) 2025 HIB Vaccines Aged [...]
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
--- OUTSIDE RECORDS SUMMARY | 2025-06-06 11:42 | XMS_ITS | Clinical Summary ---
Author Organization [facility] Address [address] [place] [address] Care Team Providers Care Wad Blanking Press Adjuster Name Role Phone Unavailable Primary Care Provider [...]
== END 2025-06-06 12:54 | disposition home or self-care (01) ==
PROVIDERS: Visit Provider Physician Assistant
DX: M23.92 Unspecified internal derangement of left knee (principal); V89.2XXA Person injured in unspecified motor-vehicle accident, traffic, initial encounter
CPT/HCPCS: 99204

== ENCOUNTER → 2025-06-06 10:55 | Outpatient (BNV) | payer OTHER, SELFPAY | PROVIDERS: Visit Provider Radiology Diagnostic Radiology | DX: M25.562 Pain in left knee (principal) | CPT/HCPCS: 73562 ==

== ENCOUNTER 2025-06-07 13:07 | Outpatient (AMB) | payer OTHER, SELFPAY ==
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
[2025-06-07 13:13] VITALS: BP 125/72; PULSE 72; BMI 28.2
== END 2025-06-07 14:13 | disposition home or self-care (01) ==
LOC: HO.HGI 13:08
PROVIDERS: Visit Provider Nurse Practitioner Family
DX: K59.04 Chronic idiopathic constipation (principal); K21.9 Gastro-esophageal reflux disease without esophagitis
CPT/HCPCS: 99215

== ENCOUNTER 2025-06-20 16:20 | Outpatient (REF) | payer OTHER, SELFPAY ==
--- OUTSIDE RECORDS SUMMARY | 2025-06-20 16:22 | XMS_ITS | Clinical Summary ---
Author Organization [facility] Address [address] [place] [address] Care Team Providers Care Central Supply Nurse Name Role Phone Unavailable Primary Care Provider [...]
--- OUTSIDE RECORDS SUMMARY | 2025-06-20 16:22 | XMS_ITS | Clinical Summary ---
Author Organization [facility] Address [address] [place] [address] Care Team Providers Care Metal Alloy Scientist Name Role Phone Unavailable Primary Care Provider [...]
[2025-06-20 17:32] LABS: Hematocrit 35.7 % (37.0-47.0); Imm Gran Abs Auto 0.01 X10*3/uL (0.00-0.03); Imm Gran Pct Auto 0.3 % (0.0-0.4); MANUAL DIFF FLAG SCAN; NRBC Abs Auto 0.000 X10*3/uL (0.0-0.012); NRBC Pct Auto 0.0 /100WBC (0.0-0.2); PLT CLUMP 1; SCAN SMEAR FLAG 1
[2025-06-20 17:33] LABS: Hemoglobin 12.3 g/dl (12.0-16.0); Lymphocytes Absolute Auto 1.5 X10*3/uL (1.2-4.9); Mean Corpuscular HGB Conc 34.5 g/dl (31.0-35.0); Mean Corpuscular Hemoglobin 31.8 pg (27.0-33.0); Mean Corpuscular Volume 92.2 fL (80.0-98.0); Red Blood Count 3.87 X10*6/uL (4.20-5.50)
[2025-06-20 17:36] LABS: Alanine Aminotransferase 19 U/L (0-31); Albumin Level 4.0 g/dL (3.5-5.0); Alkaline Phosphatase 82 U/L (39-117); Anion Gap 17 (12-20); Aspartate Amino Transferase 37 U/L (5-31); Blood Urea Nitrogen 9 mg/dL (9-16); Calcium 9.1 mg/dL (8.4-10.2); Carbon Dioxide 22 mmol/L (22-29); Chloride 106 mmol/L (96-108); Estimated Glomerular Filt Rate > 60; Potassium 4.7 mmol/L (3.3-5.1); Sodium 140 mmol/L (135-145); Total Protein 6.6 g/dL (6.5-8.0)
[2025-06-20 17:44] LABS: White Blood Count 3.9 X10*3/uL (4.8-10.8)
[2025-06-20 17:56] LABS: Platelet Count 144 X10*3/uL (160-400)
== END 2025-06-20 16:21 | disposition home or self-care (01) ==
LOC: HO.LAB 16:20
PROVIDERS: Visit Provider Nurse Practitioner Family
DX: Z13.89 Encounter for screening for other disorder (principal)
CPT/HCPCS: 36415; 80053; 85025

== ENCOUNTER 2025-06-21 13:56 | Outpatient (REF) | payer OTHER, SELFPAY ==
--- NOTE | ~2025-06-21 | CT_ITS ---
EXAMINATION: CT LUMBAR SPINE WITHOUT AND WITH CONTRAST CLINICAL INFORMATION: Wedge compression fracture of third lumbar vertebra. COMPARISON: Lumbar spine x-rays in [place] 05/10/2025 TECHNIQUE: Axial 2 mm thin and reformatted 2 minute thin sagittal and coronal images of lumbar spine were obtained from T12 through S3 vertebra. DLP: 763 mGy/cm. This CT examination was performed using dose optimization techniques as appropriate, variously including the following: *Automated exposure control *Adjustment of mA and/or kV according to patient size (this includes techniques or standardized protocols for targeted exams where dose is matched to indication/reason for exam; i.e. extremities or head) *Use of iterative reconstruction technique FINDINGS: There is maintained lumbar lordosis. There is L3 compression fracture with cement augmentation performed recently April 2025. Rest of the vertebral heights, alignment and disc heights are normal. No acute fracture seen. There is minimal disc bulge at L3-4 with mild AP canal stenosis. The neural foramina are patent bilaterally. At L4-5 disc level there is minimal bulge with mild AP canal stenosis. The neural foramina are patent bilaterally. Rest the disc levels including L5-S1 disc level is unremarkable. There is is a radiopaque 1.4 cm calcification or stone in upper pole cortex right kidney. The paravertebral soft tissues are normal. CT/CT lumbar spine wo/w IV con IMPRESSION: Old compression fracture L2 vertebra with cement augmentation. It is unchanged to previous plain x-rays 05/10/2025. There are no new acute fracture, lytic or sclerotic process. Electronically signed by: Guanaco Samaniego MD 06/21/2025 04:14 PM EDT
--- OUTSIDE RECORDS SUMMARY | 2025-06-21 13:58 | XMS_ITS | Clinical Summary ---
Author Organization [facility] Address [address] [place] [address] Care Team Providers Care Order Management Specialist Name Role Phone Unavailable Primary Care Provider [...]
--- OUTSIDE RECORDS SUMMARY | 2025-06-21 13:58 | XMS_ITS | Clinical Summary ---
Author Organization [facility] Address [facility] [place] [address] Care Team Providers Care Photograph Printer Name Role Phone Jam Viveros APRN Primary Care Provider +1- [phone] Allergies Active Allergy Reactions Criticality Noted Date [...] in the past 12 m [facility], were you homeless or living in a custodial (including now)? No 02/02/2025 IPV Inpatient Questions [...] - 199 mg/dL 02/04/2025 4:30 AM EDT [facility] Comment:Glucose Concentratio n >=200 mg/dL plus symptoms is consistent with Diabetes Mellitus. Blood Urea Nitrogen 9 8 - 18 mg/dL 02/04/2025 4:30 AM [facility] Creatinine 0.66(L) 0.70 - 1.20 mg/dL 02/04/2025 4:30 AM [facility] Sodium 140 135 - 145 mMol/L 02/04/2025 4:30 AM [facility] Potassium 4.2 3.5 - 5.0 mMol/L 02/04/2025 4:30 AM [facility] Chloride 104 98 - 107 mMol/L 02/04/2025 4:30 AM [facility] Carbon Dioxide 24 22 - 31 mMol/L 02/04/2025 4:30 AM [facility] Anion Gap 12 5 - 15 mMol/L 02/04/2025 4:30 AM [facility] Calcium 8.8 8.5 - 10.5 mg/dL 02/04/2025 4:30 AM [facility] Est Glomerular Filtration Rate - Female 106 mL/min/1. 73 m 02/04/2025 4:30 AM [facility] Comment: This patient's estimated GFR [...] Mora DO CHEMISTRY ORDERABLE S Final Result [facility] [place] [address] from Last 3 Months or Most Recently Relevant to Health Maintenance Insurance [facility] OOS Advance Directives * Attempt Cardiopulmonary Resuscitation - Inpatient (Latest Code Status on File) Date Activated Date Inactivated Comments 02/02/2025 4:53 AM 02/05/2025 8:10 PM Question Answer Comments Code Status decision made by: Patient Care Teams Photograph Printer Relationship Specialty Start Date End Date Jam Viveros APRN [address] [place] [address] [place] [address] PCP - General 02/01/25
--- OUTSIDE RECORDS SUMMARY | 2025-06-21 13:58 | XMS_ITS | Clinical Summary ---
Author Organization [facility] Address [address] [place] [address] Care Team Providers Care Supervisor Inspection Department Name Role Phone Unavailable Primary Care Provider [...]
[2025-06-21] MEDS: iohexoL 350 MG/ML 100 ML INFUS..BTL 85 ML IV (15:57)
== END 2025-06-21 13:57 | disposition home or self-care (01) ==
LOC: HO.CT 13:56
PROVIDERS: Visit Provider Registered Nurse Emergency
DX: S32.030D Wedge compression fracture of third lumbar vertebra, subsequent encounter for fracture with routine healing (principal); Z98.890 Other specified postprocedural states
CPT/HCPCS: 72133; Q9967

== ENCOUNTER → 2025-06-21 13:58 | Outpatient (BNV) | payer OTHER, SELFPAY | PROVIDERS: Visit Provider Radiology Diagnostic Radiology | DX: S32.030D Wedge compression fracture of third lumbar vertebra, subsequent encounter for fracture with routine healing (principal) | CPT/HCPCS: 72133 ==

== ENCOUNTER 2025-06-25 09:38 | Outpatient (REF) | payer OTHER, SELFPAY ==
--- NOTE | 2025-06-25 09:40 | EMG_ITS ---
Left median and ulnar motor and sensory studies were performed left radial sensory and median and lateral antecubital brachial sensory studies were performed and limb and neck muscles were tested with EMG needle. Impression: This is an unremarkable study with no evidence of median or ulnar neuropathy or radiculopathy. MTDD
--- OUTSIDE RECORDS SUMMARY | 2025-06-25 10:19 | XMS_ITS | Clinical Summary ---
Author Organization [facility] Address [address] [place] [address] Care Team Providers Care Motorcycle Builder Name Role Phone Unavailable Primary Care [...]
--- OUTSIDE RECORDS SUMMARY | 2025-06-25 10:19 | XMS_ITS | Clinical Summary ---
Author Organization [facility] [place] [address] Care Team Providers Care Online Advertising Analyst Name Role Phone Unavailable Primary Care [...]
--- OUTSIDE RECORDS SUMMARY | 2025-06-25 10:19 | XMS_ITS | Clinical Summary ---
Author Organization [facility] Address [facility] [place] [address] Care Team Providers Care Clinical Informatics Director Name Role Phone Jam Viveros APRN Primary Care Provider [phone]- [phone] Allergies Active Allergy Reactions Criticality Noted Date [...] any time in the past 12 m [facility], were you homeless or living in a correction (including now)? No 02/02/2025 IPV Inpatient Questions [...] - 199 mg/dL 02/04/2025 4:30 AM EDT [facility] Comment:Glucose Concentratio n >=200 mg/dL plus symptoms is consistent with Diabetes Mellitus. Blood Urea Nitrogen 9 8 - 18 mg/dL 02/04/2025 4:30 AM [facility] Creatinine 0.66(L) 0.70 - 1.20 mg/dL 02/04/2025 4:30 AM [facility] Sodium 140 135 - 145 mMol/L 02/04/2025 4:30 AM [facility] Potassium 4.2 3.5 - 5.0 mMol/L 02/04/2025 4:30 AM [facility] Chloride 104 98 - 107 mMol/L 02/04/2025 4:30 AM [facility] Carbon Dioxide 24 22 - 31 mMol/L 02/04/2025 4:30 AM [facility] Anion Gap 12 5 - 15 mMol/L 02/04/2025 4:30 AM [facility] Calcium 8.8 8.5 - 10.5 mg/dL 02/04/2025 4:30 AM [facility] Est Glomerular Filtration Rate - Female 106 mL/min/1. 73 m 02/04/2025 4:30 AM [facility] Comment: This patient's estimated GFR was [...] Mora DO CHEMISTRY ORDERABLE S Final Result [facility] [place] [address] from Last 3 Months or Most Recently Relevant to Health Maintenance Insurance [facility] Advance Directives * Attempt Cardiopulmonary Resuscitation - Inpatient (Latest Code Status on File) Date Activated Date Inactivated Comments 02/02/2025 4:53 AM 02/05/2025 8:10 PM Question Answer Comments Code Status decision made by: Patient Care Teams Clinical Informatics Director Relationship Specialty Start Date End Date Jam Viveros APRN [address] [place] [address] [place] [id number] PCP - General 02/01/25
[2025-06-25 11:27] LABS: Appearance Urine Clear; Glucose Urine UA Negative (Negative); PH 6.5 (5.0-9.0); Specific Gravity - Urine 1.020 (1.005-1.025)
== END 2025-06-25 09:39 | disposition home or self-care (01) ==
LOC: HO.NEURO 09:38
DX: R20.0 Anesthesia of skin (principal); F41.8 Other specified anxiety disorders; F41.0 Panic disorder [episodic paroxysmal anxiety]; F41.9 Anxiety disorder, unspecified; R42 Dizziness and giddiness; S32.030A Wedge compression fracture of third lumbar vertebra, initial encounter for closed fracture; G89.29 Other chronic pain; G44.209 Tension-type headache, unspecified, not intractable; S83.422A Sprain of lateral collateral ligament of left knee, initial encounter; S83.512A Sprain of anterior cruciate ligament of left knee, initial encounter; J45.42 Moderate persistent asthma with status asthmaticus; M79.7 Fibromyalgia; Z98.84 Bariatric surgery status
CPT/HCPCS: 36415; 81003; 82947; 84443; 95886; 95910

== ENCOUNTER → 2025-06-25 09:40 | Outpatient (BNV) | payer OTHER, SELFPAY | PROVIDERS: Visit Provider Psychiatry & Neurology Neurology | DX: R53.1 Weakness (principal) | CPT/HCPCS: 95886; 95910 ==